=== PATIENT | male | born 1975 | race Caucasian/White ===

== ENCOUNTER 2019-11-26 11:47 | Emergency (ER) | payer SELFPAY ==
[~2019-11-26 11:47] MED LIST: Iopamidol-370 76% 500 ML 1 ML ONE
[2019-11-26 12:20] LABS: #Eosinphils 0.1 thou/uL (0.0-0.7); #Lymphocytes 1.4 thou/uL (1.20-3.40); #Monocytes 0.5 thou/uL (0.11-0.59); #Neutrophils 5.2 thou/uL (1.40-6.50); %Basophils 0.6 % (0.0-1.0); %Eosinophils 0.8 % (0.0-10.0); %Lymphocytes 19.1 % (21.0-51.0); %Monocytes 7.3 % (0.0-10.0); %Neutrophils 72.2 % (42.0-75.0); Hemoglobin 15.9 g/dL (14.0-18.0); Mean Corpuscular HGB CONC 34.6 g/dL (32.0-36.0); Mean Corpuscular Hemoglobin 36.2 pg (27.0-31.0); Mean Platelet Volume 8.2 fL (7.4-10.4); Platelet Count 135 thou/uL (130-400); RBC Distribution Width 15.7 % (11.5-14.5); Red Blood Cell (RBC) Count 4.39 mill/uL (4.70-6.10); White Blood Cell (WBC) Count 7.3 thou/uL (4.8-10.8)
--- NOTE | 2019-11-26 12:21 | RAD ---
RADIOGRAPH CHEST 1 VIEW: DATE: 11/26/2019 HISTORY: 44-year-old male with chest pain, cough, and dyspnea FINDINGS: There are no airspace densities, pulmonary edema, pneumothorax, or cardiomegaly. The lateral costophr enic angles are sharp. IMPRESSION: No acute cardiopulmonary findings.
[2019-11-26] MEDS ORDERED: chlordiazePOXIDE HCl 25 MG CAP ONE ×2 (12:49→14:21)
[2019-11-26 13:31] LABS: ALT (SGPT) 32 U/L (8-55); AST (SGOT) 98 U/L (5-34); Albumin 4.1 g/dL (3.5-5.0); Alkaline Phosphatase 98 U/L (40-110); Anion Gap 19 mmol/L (10-20); BUN (Urea Nitrogen) 6 mg/dL (8.9-20.6); Bilirubin, Total 1.4 mg/dL (0.2-1.2); Calc. Creatinine Clearance 0 mL/min (70-130); Calcium 8.5 mg/dL (7.8-10.44); Carbon Dioxide 22 mmol/L (22-29); Chloride 101 mmol/L (98-107); Estimated GFR-MDRD 87; Globulin 3.1 g/dL (2.4-3.5); Glucose 208 mg/dL (70-105); Protein, Total 7.2 g/dL (6.0-8.3); Sodium 139 mmol/L (136-145)
[2019-11-26] MEDS ORDERED: predniSONE 20 MG TAB ONE (13:40)
[2019-11-26] MEDS ORDERED: Potassium Chloride 20 MEQ TAB ONE (14:07)
--- NOTE | 2019-11-26 15:38 | CT ---
CT PULMONARY ANGIOGRAM WITH IV CONTRAST AND 3D POSTPROCESSIN11/26/19 HISTORY: Chest pain, shortness of breath. FINDINGS: No filling defects are seen in the pulmonary arterial vasculature to suggest pulmonary embolism. The thoracic aorta is well opacified without aneurysm or dissection. No pleural or pericardial effusion identified. No pneumothoraces, focal areas of consolidation, lung nodules or masses are seen. There a re mild degenerative changes in the spine. Upper abdominal tomograms demonstrate fatty infiltration o f the liver. IMPRESSION: No CT evidence of pulmonary embolism or thoracic aortic aneurysm/dissection. POS: [facility]
--- NOTE | 2019-11-30 14:09 | EKG ---
Test Reason : Blood Pressure : / mmHG Vent. Rate : 109 BPM Atrial Rate : 109 BPM P-R Int : 150 ms QRS Dur : 090 ms QT Int : 336 ms P-R-T Axes : 058 051 044 degrees QTc Int : 452 ms Sinus tachycardia Otherwise normal ECG Confirmed by MIGUEL PLASCENCIA DO ([id number]), film or videotape editor SUNITA DOVER ([id number]) on 11/30/2019 2:09:36 PM Referred By: Confirmed By:MIGUEL PLASCENCIA DO
== END 2019-11-26 16:56 | disposition home or self-care (01) ==
LOC: ERS 11:47
DX: J20.9 Acute bronchitis, unspecified (principal); F10.239 Alcohol dependence with withdrawal, unspecified; F20.9 Schizophrenia, unspecified; F31.9 Bipolar disorder, unspecified; F41.9 Anxiety disorder, unspecified; F43.10 Post-traumatic stress disorder, unspecified; F17.220 Nicotine dependence, chewing tobacco, uncomplicated
CPT/HCPCS: 36415; 71045; 71275; 80053; 84484; 85025; 85379; 93005; J7512; Q9967

== ENCOUNTER 2020-04-09 09:34 | Outpatient (CLI) | payer OTHER ==
--- NOTE | 2020-04-09 12:02 | RAD ---
LEFT KNEE 2 VIEWS: DATE: 04/09/2020 HISTORY: Disability exam. Knee pain. FINDINGS/IMPRESSION: No acute fracture or dislocation is seen. No joint effusion is identified. No significant osteophytos is is noted. There is flocculent calcification in the distal shaft of the femur which may be due to a n enchondroma or bone infarction. POS: [facility]
--- NOTE | 2020-04-09 12:05 | RAD ---
LUMBAR SPINE 3 VIEWS: Date: 04/09/2020 HISTORY: Disability exam. Low back pain. FINDINGS: Multilevel degenerative changes are present. No acute fracture, subluxation, or bony destruction is s een. IMPRESSION: Lumbar spondylosis. POS: [facility]
--- NOTE | 2020-04-09 12:08 | RAD ---
LEFT WRIST 3 VIEWS: HISTORY: Disability exam, left wrist pain. FINDINGS/IMPRESSION: No acute fracture or dislocation is seen. There are postop changes with screws on either side of the 1st carpometacarpal joint. There are also degenerative changes in the 1st carpometacarpal joint. POS: [facility]
== END 2020-04-09 09:35 | disposition home or self-care (01) ==
LOC: BICRAD 09:34
PROVIDERS: ATTEND Internal Medicine
DX: Z02.71 Encounter for disability determination (principal); M18.12 Unilateral primary osteoarthritis of first carpometacarpal joint, left hand; M47.816 Spondylosis without myelopathy or radiculopathy, lumbar region; Z98.890 Other specified postprocedural states
CPT/HCPCS: 72100

== ENCOUNTER 2020-08-12 02:15 | Inpatient (IN) | payer SELFPAY ==
[2020-08-12 03:16] LABS: Hemoglobin 10.9 g/dL (14.0-18.0); Mean Corpuscular HGB CONC 35.1 g/dL (32.0-36.0); Mean Corpuscular Hemoglobin 37.1 pg (27.0-31.0); Red Blood Cell (RBC) Count 2.94 mill/uL (4.70-6.10); White Blood Cell (WBC) Count 7.7 thou/uL (4.8-10.8)
[2020-08-12 03:17] LABS: INR-International Normal Ratio 1.4; PTT 29.2 sec (22.9-36.1); Prothrombin Time 17.9 sec (12.0-14.7)
[2020-08-12 03:39] LABS: #Lymphocytes 0.8 thou/uL (1.20-3.40); #Monocytes 0.4 thou/uL (0.11-0.59); #Neutrophils 6.4 thou/uL (1.40-6.50); %Basophils 0.3 % (0.0-1.0); %Eosinophils 0.3 % (0.0-10.0); %Lymphocytes 10.1 % (21.0-51.0); %Monocytes 5.3 % (0.0-10.0); %Neutrophils 84.1 % (42.0-75.0); Mean Platelet Volume 8.7 fL (7.4-10.4); Platelet Count 61 thou/uL (130-400); Platelet Morphology Comment Appears Decreased
[2020-08-12 03:54] LABS: CKMB 1.2 ng/mL (0-6.6)
[2020-08-12 03:57] LABS: ALT (SGPT) 20 U/L (8-55); AST (SGOT) 84 U/L (5-34); Albumin 3.3 g/dL (3.5-5.0); Alkaline Phosphatase 82 U/L (40-110); Anion Gap 20 mmol/L (10-20); BUN (Urea Nitrogen) 18 mg/dL (8.9-20.6); Bilirubin, Total 2.8 mg/dL (0.2-1.2); Calc. Creatinine Clearance 0 mL/min (70-130); Carbon Dioxide 26 mmol/L (22-29); Chloride 100 mmol/L (98-107); Globulin 2.7 g/dL (2.4-3.5); Glucose 264 mg/dL (70-105); Potassium 3.3 mmol/L (3.5-5.1); Sodium 143 mmol/L (136-145)
--- NOTE | 2020-08-12 08:19 | CT ---
PRELIMINARY REPORT/[facility]/EMERGENCY AFTER HOURS PROCEDURE EXAM: CT Abdomen and Pelvis with Intravenous Contrast CLINICAL HISTORY: VOMITTING AND RECTAL BLEEDING. TECHNIQUE: Axial computed tomography images of the abdomen and pelvis with intravenous contrast. CONTRAST: With; ISOVUE 370,80mL COMPARISON: None provided. FINDINGS: LUNG BASES: No basilar airspace consolidation or pleural effusion. LIVER: Diffuse low-attenuation of the liver. There are multiple low-attenuation rounded lesions of the gallb ladder fossa. GALLBLADDER AND BILE DUCTS: Unremarkable. No calcified stone. No ductal dilation. PANCREAS: Unremarkable. SPLEEN: Unremarkable. ADRENAL GLANDS: Unremarkable. KIDNEYS, URETERS, AND BLADDER: Unremarkable. No hydronephrosis or nephrolithiasis. No ureteral or bladder calculi. STOMACH AND BOWEL: No obstruction. Wall thickening in the cecum and ascending colon with mild adjacent stranding. No e vidence of bowel obstruction. APPENDIX: No CT evidence for appendicitis. PERITONEUM: No free fluid. No free air. LYMPH NODES: No lymphadenopathy. REPRODUCTIVE: Unremarkable as visualized. VASCULATURE: Gastrorenal varices are present. No aortic aneurysm. BONES: No fracture or suspicious osseous abnormality. ABDOMINAL WALL AND SOFT TISSUES: Unremarkable. IMPRESSION: 1. Bowel wall thickening in the cecum and ascending colon with mild adjacent stranding. This could represent acute colitis. Portal colopathy is also a consideration. 2. Stigmata of portal hypertension to include gastrorenal varices. 3. Diffuse low-attenuation of the liver. This could represent hepatic steatosis or hepatitis. Darrel elate for LFT abnormalities. 4. Multiple low-density lesions in the liver at the gallbladder fossa. Cannot exclude small hepatic abscesses, cysts or less likely masses. This could be evaluated further with dedicated liver MRI or CT. ELECTRONICALLY SIGNED BY: Art Pedro M.D. Aug 12, 2020 4:00:52 AM POWDER CUTTING OPERATOR This report is intended for review by the ordering physician only, in accordance of law. If you recei ve this report in error, please call [facility] at [phone]. FINAL REPORT Final interpretation CT abdomen and pelvis: 08/12/2020 COMPARISON: None. HISTORY: Vomiting, rectal bleeding. FINDINGS: The visualized lung bases appear grossly unremarkable. The hepatic parenchyma is diffusely hypodense, suggesting steatosis. The peripheral contour of the li celeste is slightly irregular, which may signify cirrhotic change. The spleen is enlarged measuring approximately 15.2 cm in craniocaudal dimension. There are varices in the gastrohepatic ligament and splenic hilum with prominent lobulated varices medial to the gastric fundus. A left-sided splenorenal shunt is suspected. No free intraperitoneal air. The gallbladder is partially contracted and poorly evaluated via CT. The adrenal glands and kidneys a ppear grossly unremarkable as does the pancreas. There are multiple low density lesions within the hepatic parenchyma adjacent to the gallbladder, non specific. The location of these findings may signify focal areas of fatty infiltration. Hepatic abscess, cyst disease, or mass lesions cannot be excluded on the basis of this examination. Evaluation of the bowel is limited without oral contrast media. There is mild thickening of the paracolic gutters posteriorly. The appendix is unremarkable. There is wall prominence of the cecum and ascending colon with minimal adjacent pericolonic fat stranding. The vascular structures of the abdomen/pelvis appear patent. There are scattered areas of atheroscler otic calcification involving the infrarenal abdominal aorta and the pelvic arterial structures. No abdominal or pelvic lymphadenopathy. Review of the osseous structures demonstrates no worrisome lytic or blastic bone lesions. There is li near sclerosis associated with bilateral femoral head suggesting bilateral avascular necrosis. IMPRESSION: Findings suggesting early cirrhotic change with evidence of portal hypertension. Multiple areas of lo w density are seen within the hepatic parenchyma adjacent to the gallbladder measuring up to 1 cm, which may represent focal areas of fatty infiltration, hepatic infectious process, cyst disease, or h epatic masses. Follow-up MRI with and without contrast may be beneficial. There is wall prominence of the cecum and ascending colon which could signify hepatic/portal colonopathy or acute colitis. Code QA. Transcribed Date/Time: 08/12/2020 9:13 AM
--- NOTE | 2020-08-12 08:23 | ULT ---
EXAM: US Gallbladder RUQ CLINICAL HISTORY: Hematemesis. Right upper quadrant pain.. COMPARISON: None. CORRELATION: Abdomen/pelvis CT 08/12/2010. FINDINGS: Pancreas: The head of the pancreas has a normal echotexture. The remainder the pancreas is obscured by bowel gas. Liver:Heterogeneous echotexture may be due to hepatocellular disease along with areas of fatty infilt ration. Limited evaluation for hepatic masses and intrahepatic biliary dilatation. Right hepatic lobe: 16.8 cm Gallbladder: Contracted. There is evidence of cholelithiasis. Gallbladder wall is not thickened. No p ericholecystic fluid. Bone's sign:Negative Portal Vein: Patent. Appropriate directional flow Bile ducts: Suboptimal evaluation of the common bile duct. Right kidney: No hydronephrosis. Right kidney measures 13.1 cm in length. IMPRESSION: 1. Sonographic evidence of cholelithiasis without definite sonographic evidence of cholecystitis. 2. Heterogeneous echotexture of the liver likely due to hepatic steatosis and hepatocellular disease. Transcribed Date/Time: 08/12/2020 9:03 AM
[2020-08-12] MEDS ORDERED: Thiamine HCl 200 MG/2 ML VIAL IM SCH (08:30)
[2020-08-12] MEDS ORDERED: HumaLOG 300 UNITS/3 ML VIAL SC PRN ×2 (08:39)
[2020-08-12] MEDS ORDERED: Dextrose 5% in Water 1,000 ML IV PRN (08:39)
[2020-08-12] MEDS ORDERED: Dextrose 50% Abboject 50 ML SYRINGE SLOW IVP PRN (08:39)
--- NOTE | 2020-08-12 08:46 | RAD ---
EXAM: CHEST ONE VIEW HISTORY: Vomiting and rectal bleeding COMPARISON: 11/26/2019 FINDINGS: The cardiac silhouette and pulmonary vasculature are within normal limits. The lungs are clear. No ot her interval change. IMPRESSION: No acute cardiopulmonary process.
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
[2020-08-12] MEDS ORDERED: Octreotide Acetate 50 MCG/ML AMP SLOW IVP SCH ×3 (09:15→16:25)
[2020-08-12 10:19] LABS: Magnesium 1.4 mg/dL (1.6-2.6)
[2020-08-12] MEDS ORDERED: Pantoprazole 40 MG VIAL ONE (11:22)
[2020-08-12] MEDS ORDERED: niCARdipine 20MG In NaCl 0 MG/0 ML BAG ONE (11:22)
[2020-08-12] MEDS ORDERED: Labetalol HCl 100 MG/20 ML VIAL ONE (11:23)
[2020-08-12] MEDS: NS 0.9% w/ 40 MEQ KCL 1,000 ML IV SCH ×2 (11:30→19:16)
[2020-08-12] MEDS: Folic Acid 1 MG TAB PO SCH (11:30)
[2020-08-12] MEDS: Pantoprazole 40 MG VIAL IVP SCH ×2 (11:31→22:25)
[2020-08-12] MEDS ORDERED: Folic Acid 1 MG TAB ONE (12:20)
[2020-08-12] MEDS ORDERED: Iopamidol-370 76% 500 ML 1 ML ONE (12:27)
[2020-08-12] MEDS ORDERED: Octreotide Acetate 50 MCG/ML AMP ONE (13:46)
[2020-08-12] MEDS ORDERED: Midazolam HCl 2 mg/2 ml Vial ONE (14:31)
[2020-08-12] MEDS ORDERED: Lorazepam 2 MG/ML VIAL ONE (14:35)
[2020-08-12 14:57] LABS: SARS-CoV-2 NAA Rapid Test Not Detected (NotDetected)
[2020-08-12] MEDS ORDERED: Glycopyrrolate 0.2 MG/ML 5 ML SYRINGE ONE (15:17)
[2020-08-12] MEDS ORDERED: Rocuronium Bromide 10 MG/ML (10ML VIAL) ONE (15:17)
[2020-08-12] MEDS ORDERED: PROPOFOL 200 MG/20 ML VIAL ONE (15:17)
[2020-08-12] MEDS ORDERED: Ondansetron PF 4 MG/2 ML Vial ONE ×2 (15:17→22:19)
[2020-08-12] MEDS ORDERED: PHENYLEPHRINE-NS 100 MCG/ML 10 ML SYRINGE ONE (15:17)
[2020-08-12] MEDS ORDERED: Lidocaine 1% PF 5 ML VIAL ONE (15:17)
[2020-08-12] MEDS ORDERED: Succinylcholine 200 MG/10 ml SYRINGE FS ONE (15:17)
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
[2020-08-12 15:36] LABS: Hemoglobin 9.4 g/dL (14.0-18.0)
[2020-08-12] MEDS ORDERED: SUGAMMADEX SODIUM 200 MG/2 ML VIAL ONE (16:13)
[2020-08-12] MEDS ORDERED: Promethazine HCl 25 MG/ML VIAL SLOW IVP PRN (16:35)
[2020-08-12] MEDS ORDERED: Ondansetron HCl/PF 4 MG/2 ML Vial IVP PRN (16:35)
[2020-08-12] MEDS ORDERED: Promethazine HCl 25 MG/ML VIAL IM PRN (16:35)
--- NOTE | 2020-08-12 16:48 | OP ---
DATE OF PROCEDURE: 08/12/2020 PROCEDURE PERFORMED: Esophagogastroduodenoscopy. PREMEDICATION: Given by Anesthesiology Department. PREPROCEDURE DIAGNOSIS: 1. Upper gastrointestinal bleed characterized as hematemesis. 2. Evidence of cirrhosis and portal hypertension by imaging study, CT and ultrasound. POSTPROCEDURE DIAGNOSES: 1. Large 3 cm gastric varix with a fibrin clot, but no active bleeding. 2. Moderate hypertensive portal gastropathy. 3. Small grade 1 distal esophageal varix, flatten with insufflation. DESCRIPTION OF PROCEDURE: Written consents were obtained prior to procedure. After adequate sedation, the forward-viewing endoscope was advanced down the hypopharynx under direct vision to the stomach. A residual clot and blood was noted in the stomach. The stomach was vigorously irrigated and suctioned and cleaned. There was no active bleeding seen. The endoscope was advanced through the duodenum. Both the 2nd portion and the 3rd portion appears normal. The bulb appeared normal. The pylorus was patent. The stomach was then re-examined. The gastric antrum, body, and fundus appeared normal. Retroflexion showed a single large gastric varix with a fibrin clot at the tip, but no bleeding was seen. The GE junction was located at 45 cm. There was grade 1 small distal esophageal varices, that flattened with insufflation. The stomach was then decompressed. The instrument was then slowly removed. ASSESSMENT: 1. Large gastric varix with fibrin clot, source of bleeding, but no active bleeding at the present time. 2. Portal gastropathy. 3. Small grade 1 esophageal varix, that flattens with insufflation, no bleeding. RECOMMENDATION: 1. High-dose octreotide 100 mcg IV an hour. 2. Do not transfuse unless hemoglobin is less than 7 to maintain low portal pressure. 3. He will need to be transferred for TIPS procedure. Job ID: [id number]
[2020-08-12] MEDS: Multivitamin W/ Minerals 1 TAB PO SCH (17:25)
[2020-08-12] MEDS ORDERED: Octreotide Acetate 1,250 MCG in Sodium Chloride 0.9% 250 ML 250 ML IVPB SCH (18:15)
--- NOTE | 2020-08-12 19:43 | PDOC.EVN ---
Event Note - Event Note Event Note: Discussed case with Dr. Carreon. Patient has large gastric varix and will need transfer to larger center with capability to do TIPS procedure. Initiated transfer with transfer center to [facility]. Will continue patient on high dose octreotide at 100 mcg IV/hr. Will avoid excessive transfusion to maintain low portal pressure. Will also start vitamin K to hep reverse coagulopathies. I have spoke with the [facility] at [facility] who has accepted the patient for transfer. The patient will be accepted to the ICU. Awaiting bed placement and to give report to the ICU physician at [facility].
[2020-08-12] MEDS ORDERED: Lorazepam 2 MG/ML VIAL SLOW IVP PRN (19:54)
[2020-08-12 20:02] LABS: Hemoglobin 8.9 g/dL (14.0-18.0)
[2020-08-12] MEDS ORDERED: Sodium Chloride 0.9% 20 ML ONE (21:35)
[2020-08-13 02:09] LABS: Hemoglobin 8.4 g/dL (14.0-18.0)
[2020-08-13] MEDS: NS 0.9% w/ 40 MEQ KCL 1,000 ML IV SCH ×2 (05:59→06:01)
[2020-08-13 08:18] LABS: Hemoglobin 8.1 g/dL (14.0-18.0)
[2020-08-13] MEDS ORDERED: Phytonadione 10 MG/ML AMP ONE (08:47)
[2020-08-13] MEDS ORDERED: Magnesium Oxide 400 MG TAB PO SCH (09:00)
[2020-08-13] MEDS ORDERED: Thiamine 100 MG TAB PO SCH (09:00)
[2020-08-13] MEDS: Folic Acid 1 MG TAB PO SCH (09:06)
[2020-08-13] MEDS: Multivitamin W/ Minerals 1 TAB PO SCH (09:06)
[2020-08-13] MEDS: Phytonadione 10 MG/ML AMP SLOW IVP SCH (09:07)
[2020-08-13] MEDS: Pantoprazole 40 MG VIAL IVP SCH (09:07)
[2020-08-13] MEDS ORDERED: cefTRIAXone\\ROCEPHIN 1 GM in Sodium Chloride 0.9% 100 ML IVPB SCH (10:00)
--- NOTE | 2020-08-13 15:16 | PDOC.HOSPP ---
- Subjective Encounter Date: 08/13/20 Subjective: Patient got his on FaceTime phone call as I came to evaluate him. Patient is frustrated that he is not able to eat or drink anything other than ice chips. He is frustrated that he does not have a room other than the PACU overflow (as the hospital is otherwise full). He has been reading about a TIPS procedure on the Internet and is now concerned because he believes that would give him a life expectancy of 6 to 24 months. He is not sure at this time and he wants to go to [place] for this procedure because he does not like the idea of surgery in general. His would have a difficult time getting to [place]. He says his car at home now has a flat tire so no one would be able to get him to bring him back after his visit to [place]. Otherwise, the patient denies any abdominal pain, nausea, vomiting, melena or hematochezia. - Objective Vital Signs & Weight: Most Recent Monitor Data Heart Rate from ECG 125 NIBP 112/75 NIBP BP-Mean 87 Respiration from ECG 24 SpO2 96 I&O: 08/12/20 08/13/20 08/14/20 06:59 06:59 06:59 Intake Total 100 Balance 100 Result Diagrams: 08/13/20 12:50 08/12/20 03:03 Additional Labs: Accuchecks 08/13/20 08/13/20 08/12/20 11:42 05:10 19:54 POC Glucose 189 H 207 H 215 H Hospitalist ROS - Medication Medications: Active Medications Generic Name Dose Route Start Last Admin Trade Name Ajith PRN Reason Stop Dose Admin Folic Acid 1 mg 08/12/20 09:00 08/13/20 09:06 Folic Acid 1 Mg Tab PO 1 mg DAILY ASHLEY Administration Iron/Minerals/Multivitamins 1 tab 08/12/20 09:00 08/13/20 09:06 Multivitamin W/ Minerals 1 Tab PO 1 tab DAILY ASHLEY Administration Magnesium Oxide 400 mg 08/13/20 09:00 08/13/20 09:06 Magnesium Oxide 400 Mg Tab PO 400 mg DAILY ASHLEY Administration Pantoprazole Sodium 40 mg 08/12/20 09:00 08/13/20 09:07 Pantoprazole 40 Mg Vial IVP 40 mg Q12HR ASHLEY Administration Phytonadione 10 mg 08/13/20 09:00 08/13/20 09:07 Phytonadione 10 Mg/Ml Amp SLOW IVP 10 mg DAILY ASHLEY Administration Thiamine HCl 100 mg 08/13/20 09:00 08/13/20 09:07 Thiamine 100 Mg Tab PO 100 mg DAILY ASHLEY Administration Hospitalist Exam Vitals: Most Recent Monitor Data Heart Rate from ECG 125 NIBP 112/75 NIBP BP-Mean 87 Respiration from ECG 24 SpO2 96 General Appearance: NAD, awake alert General - other findings: Obese Heart: RRR, no murmur, no gallops, no rubs, normal peripheral pulses Respiratory: CTAB, no wheezes, no rales, no ronchi, normal chest expansion, no tachypnea, normal percussion Gastrointestinal: soft, non-tender, non-distended, normal bowel sounds, no palpable masses, no hepatomegaly, no splenomegaly, no bruit Extremities: no cyanosis, no clubbing, no edema Skin: normal turgor Neurological: no focal deficits Musculoskeletal: normal tone, normal strength, no muscle wasting Psychiatric: normal affect, normal behavior, A&O x 3 Hosp A/P (1) GI bleed Code(s): K92.2 - GASTROINTESTINAL HEMORRHAGE, UNSPECIFIED Status: Acute (2) Bleeding gastric varices Code(s): I86.4 - GASTRIC VARICES Status: Acute (3) Alcoholism Code(s): F10.20 - ALCOHOL DEPENDENCE, UNCOMPLICATED Status: Acute (4) Cirrhosis, alcoholic Code(s): K70.30 - ALCOHOLIC CIRRHOSIS OF LIVER WITHOUT ASCITES Status: Acute (5) Coagulopathy Status: Acute (6) Acute blood loss anemia Code(s): D62 - ACUTE POSTHEMORRHAGIC ANEMIA Status: Acute - Plan GI bleed secondary to gastric varix: Status post endoscopy. Appeared that the bleeding had stopped and there was a fibrin clot present. Continue octreotide drip. Patient has been accepted in transfer to [facility] Awaiting bed availability. In the meantime the patient has been allowed some clear liquids. Acute blood loss anemia: Holding off on transfusing unless his hemoglobin drops below 7 in order to keep portal pressure low. Continue every 6 hour hemoglobin checks. Coagulopathy: Secondary to liver disease. Moderate. Alcoholic cirrhosis: Patient has evidence of cirrhosis and portal hypertension on his imaging. Responsible for the gastric varix, and the coagulopathy. Alcoholism: So far no significant evidence of serious withdrawal. ASE protocol has been initiated. He is receiving thiamine, folic acid, multivitamin. Disposition: As above the [facility] [place] [facility]IPS procedure pending bed availability. He has been accepted.
--- NOTE | 2020-08-13 16:11 | PRG ---
DATE OF SERVICE: 08/13/2020 SUBJECTIVE: Mr. Smith is resting comfortably in bed. He has had no bleeding. He is in ICU status in PACU. MEDICATIONS: 1. Rocephin. 2. Protonix 40 IV q.12. 3. Octreotide drip 100 mcg/h. 4. Multivitamin. 5. Thiamine. 6. Folate. OBJECTIVE: VITAL SIGNS: Temperature 98, pulse 98, blood pressure 110/73. GENERAL: He is resting comfortably in bed. He is in no distress. HEENT: Oropharynx without lesions. NECK: Supple. ABDOMEN: Slightly protuberant with fluid wave, but no overt shifting dullness. LABORATORY DATA: Hemoglobin is 8, it was 8.4 yesterday, it was 10 on admission. He has received no transfusion today. White count 7.7 yesterday, MCV 106, platelet count 61. INR 1.4. lipase 22. Bilirubin 2.8, AST 84, ALT 20, protein 6, albumin 3.3. ASSESSMENT: 1. Gastrointestinal hemorrhage from a large gastric varices with a fibrin clot. He is at high risk for hemorrhage. He needs to be transferred to a facility with capability to perform a TIPS procedure. He has no encephalopathy and relatively stable liver function would be a great candidate. If he does not have a TIPS, he would likely represent with hemorrhage and this will not be controllable endoscopically, he would . We do not have the capabilities for endoscopic management of the large gastric varices nor is TIPS available at this facility. I have discussed this with the patient. He understands and accepted transfer to [place]. I have discussed the procedure with him. 2. Alcoholic hepatitis. Discussed need for continued abstinence of alcohol for the rest of his life or he will suffer ramifications of liver failure. 3. We would continue IV PPI q.12. 4. The patient needs to be on octreotide drip at all times when he gets transferred. He needs to be on octreotide drip and have a good supply transfer. 5. Imaging of liver on 08/12 showed steatosis and irregular liver margin, also signs of edema of the abdominal bowel. An ultrasound showed cholelithiasis. No overt ascites. Plasma alcohol was 282 on admission. RECOMMENDATIONS: We will continue aggressive care. We will watch out for DT and place on MELL protocol. Job ID: [id number]
[2020-08-14] MEDS ORDERED: Diazepam 2 MG TAB PO SCH (05:15)
[2020-08-14 08:24] VITALS: BP 106/62; TEMP 97.9
[2020-08-14] MEDS ORDERED: Lorazepam 2 MG/ML VIAL ONE ×2 (08:36→08:44)
[2020-08-14] MEDS: Phytonadione 10 MG/ML AMP SLOW IVP SCH (08:43)
[2020-08-14] MEDS: Pantoprazole 40 MG VIAL IVP SCH (08:44)
--- NOTE | 2020-08-14 18:03 | PDOC.DS.DS ---
Provider Date of Admission: 08/12/20 05:09 Date of Discharge: 08/14/20 Admitting Provider: Johnathan Marin MD Consultations: Gastroentrology Primary Care Physician: MATTHEW MONET MD Course Hospital Course: Patient is a 45-year-old male with a history of significant alcohol abuse who presented with hematochezia and melena. GI bleed secondary to gastric varix: Patient underwent urgent endoscopy revealing a very large gastric varix with fibrin clot. Appeared that the bleeding had stopped and there was a fibrin clot present. He was subsequently maintained on high-dose octreotide drip. Giving the likelihood of rebleed it was felt the patient needed a TIPS procedure promptly. He was subsequently accepted in transfer to [facility]. Acute blood loss anemia: Patient's hemoglobin did drop a couple of grams. He did not receive a transfusion as the plan was to only transfuse below 7. Idea was to keep the portal pressure lower. Coagulopathy: Secondary to liver disease. Moderate. Alcoholic cirrhosis: Patient has evidence of cirrhosis and portal hypertension on his imaging. Responsible for the gastric varix, and the coagulopathy. Alcoholism: no significant evidence of serious withdrawal. ASE protocol was initiated. He received thiamine, folic acid, multivitamin. Lab Results: 08/13/20 12:50 08/12/20 03:03 Abnormal Lab Results - Last 48 hrs 08/12/20 19:54: Hgb 8.9 L, Hct 26.1 L 08/13/20 01:54: Hgb 8.4 L, Hct 24.5 L 08/13/20 07:56: Hgb 8.1 L, Hct 25.3 L 08/13/20 12:50: Hgb 8.0 L, Hct 23.4 L Vitals: Vital Signs (12 hours) Temp Pulse Resp BP Pulse Ox 08/14/20 08:00 97.9 F 78 16 106/62 100 08/14/20 07:47 100 Most Recent Monitor Data Heart Rate from ECG 125 NIBP 112/75 NIBP BP-Mean 87 Respiration from ECG 24 SpO2 96 Physical Exam: The patient was seen and examined on the day of discharge. Problem (1) GI bleed Code(s): K92.2 - GASTROINTESTINAL HEMORRHAGE, UNSPECIFIED Status: Acute (2) Bleeding gastric varices Code(s): I86.4 - GASTRIC VARICES Status: Acute (3) Alcoholism Code(s): F10.20 - ALCOHOL DEPENDENCE, UNCOMPLICATED Status: Acute (4) Cirrhosis, alcoholic Code(s): K70.30 - ALCOHOLIC CIRRHOSIS OF LIVER WITHOUT ASCITES Status: Acute (5) Coagulopathy Status: Acute (6) Acute blood loss anemia Code(s): D62 - ACUTE POSTHEMORRHAGIC ANEMIA Status: Acute Plan Allergies: No Known Allergies Allergy (Unverified 08/12/20 08:17) Referrals: MATTHEW MONET MD [Primary Care Provider] - Disposition: OTHER HOSPITAL ER Quality CORE MEASURES:: N/A
== END 2020-08-14 09:25 | disposition short-term general hospital (02) | DRG 300 ==
LOC: ERS 02:15 → ERHOLD 05:09 → PACU-TCU 17:59
PROVIDERS: ADMIT Student in an Organized Health Care Education/Training Program; ATTEND Internal Medicine
PROC: 0DJ08ZZ Inspection of Upper Intestinal Tract, Via Natural or Artificial Opening Endoscopic (ICD-10-PCS; principal; 2020-08-12)
DX: I86.4 Gastric varices (principal); K76.6 Portal hypertension; I24.8 Other forms of acute ischemic heart disease; D62 Acute posthemorrhagic anemia; K92.2 Gastrointestinal hemorrhage, unspecified; D68.4 Acquired coagulation factor deficiency; K70.30 Alcoholic cirrhosis of liver without ascites; E11.9 Type 2 diabetes mellitus without complications; F31.9 Bipolar disorder, unspecified; F43.10 Post-traumatic stress disorder, unspecified; E87.6 Hypokalemia; D69.59 Other secondary thrombocytopenia; G40.909 Epilepsy, unspecified, not intractable, without status epilepticus; F10.20 Alcohol dependence, uncomplicated; Z20.822 Contact with and (suspected) exposure to COVID-19
CPT/HCPCS: 36415; 36416; 71045; 74177; 76705; 80053; 82553; 83605; 83690; 83735; 84484; 85014; 85018; 85025; 85610; 85730; 86850; 86900; 86901; 93005; 96374; C9113; J2060; J2250; J2354; J2405; J2704; J3411; J3430; J3475; J3480; J3490; Q9967; U0002

== ENCOUNTER 2020-12-22 23:19 | Emergency (ER) | payer MEDICAID, SELFPAY ==
[2020-12-22 23:42] LABS: Bilirubin Negative (Negative); Blood, Urine Negative (Negative); Clarity Clear (Clear); Glucose, Urine (Dipstick) Greater than 1000 mg/dL (Negative); Ketone, Urine Negative (Negative); Leukocyte Negative Leu/uL (Negative); Nitrite Negative (Negative); Protein, Urine (Dipstick) Negative (Neg-Trace); Urobilinogen Normal mg/dL (Less than 2); pH, Urine 6.5 (5.0-9.0)
[2020-12-23 00:16] LABS: #Basophils 0.1 thou/uL (0.0-0.2); #Eosinphils 0.1 thou/uL (0.0-0.7); #Lymphocytes 2.2 thou/uL (1.20-3.40); #Monocytes 0.4 thou/uL (0.11-0.59); #Neutrophils 4.2 thou/uL (1.40-6.50); %Basophils 1.5 % (0.0-1.0); %Eosinophils 2.1 % (0.0-10.0); %Lymphocytes 31.6 % (21.0-51.0); %Monocytes 5.2 % (0.0-10.0); %Neutrophils 59.6 % (42.0-75.0); Hemoglobin 13.2 g/dL (14.0-18.0); Mean Corpuscular HGB CONC 34.9 g/dL (32.0-36.0); Mean Corpuscular Hemoglobin 28.3 pg (27.0-31.0); Mean Corpuscular Volume 81.1 fL (78.0-98.0); Mean Platelet Volume 9.2 fL (7.4-10.4); Platelet Count 114 thou/uL (130-400); RBC Distribution Width 14.2 % (11.5-14.5); Red Blood Cell (RBC) Count 4.65 mill/uL (4.70-6.10)
[2020-12-23 00:36] LABS: ALT (SGPT) 15 U/L (8-55); AST (SGOT) 21 U/L (5-34); Alkaline Phosphatase 114 U/L (40-110); Anion Gap 16 mmol/L (10-20); BUN (Urea Nitrogen) 14 mg/dL (8.9-20.6); Bilirubin, Total 0.5 mg/dL (0.2-1.2); Calc. Creatinine Clearance 0 mL/min (70-130); Calcium 9.4 mg/dL (7.8-10.44); Carbon Dioxide 21 mmol/L (22-29); Chloride 99 mmol/L (98-107); Globulin 3.8 g/dL (2.4-3.5); Glucose 397 mg/dL (70-105); Protein, Total 7.8 g/dL (6.0-8.3); Sodium 132 mmol/L (136-145)
[2020-12-23 02:40] LABS: Actual Bicarbonate (HCO3v) 25 mEq/L (22-28); Analyzer IN Cardio ER; Base Excess 0.1 mEq/L (-2.0 to +3.0); Calcium, Ionized (venous) 1.12 mmol/L (1.16-1.32); Chloride (VBG) 101 mmol/L (98-106); Hemoglobin (Hb) 14.4 g/dL (13.1-17.2); Sodium 135.6 mmol/L (133-146); pH (venous) 7.41 (7.32-7.43)
== END 2020-12-23 03:21 | disposition home or self-care (01) ==
LOC: ERS 23:19
DX: E11.65 Type 2 diabetes mellitus with hyperglycemia (principal); F17.220 Nicotine dependence, chewing tobacco, uncomplicated; Z79.899 Other long term (current) drug therapy
CPT/HCPCS: 36415; 36416; 80053; 81003; 82010; 82805; 85025; 93005

== ENCOUNTER 2021-01-31 19:00 | Outpatient (CLI) | payer MEDICAID, OTHER | END 2021-01-31 19:01 | disposition home or self-care (01) | LOC: SLEEPLAB 19:00 | PROVIDERS: ATTEND Nurse Practitioner Family | DX: G47.33 Obstructive sleep apnea (adult) (pediatric) (principal); G47.00 Insomnia, unspecified; E11.9 Type 2 diabetes mellitus without complications; R06.83 Snoring; G47.10 Hypersomnia, unspecified; E66.9 Obesity, unspecified; Z68.33 Body mass index [BMI] 33.0-33.9, adult | CPT/HCPCS: 95811 ==

== ENCOUNTER 2021-05-11 03:27 | Inpatient (IN) | payer MEDICAID, OTHER ==
[2021-05-11] MEDS ORDERED: Midazolam HCl 5 mg/ml Vial ONE (03:41)
[2021-05-11] MEDS ORDERED: Heparin 10,000 UNITS/ 10 ML VIAL ONE (03:49)
[2021-05-11] MEDS ORDERED: Verapamil 5 MG/2 ML VIAL ONE (03:49)
[2021-05-11] MEDS ORDERED: Nitroglycerin 100MG/250ML BOT 250 ML ONE (03:50)
[2021-05-11] MEDS ORDERED: Fentanyl 100 MCG/2 ML VIAL ONE ×2 (03:50→04:44)
[2021-05-11] MEDS ORDERED: Midazolam HCl 2 mg/2 ml Vial ONE ×2 (03:51→04:44)
[2021-05-11 04:29] LABS: INR-International Normal Ratio 1.2; Prothrombin Time 15.3 sec (12.0-14.7)
[2021-05-11 04:31] LABS: Hemoglobin 15.8 g/dL (14.0-18.0); Mean Corpuscular HGB CONC 32.7 g/dL (32.0-36.0); Mean Corpuscular Hemoglobin 28.2 pg (27.0-31.0); Mean Corpuscular Volume 86.3 fL (78.0-98.0); Mean Platelet Volume 8.1 fL (7.4-10.4); PTT 69.2 sec (22.9-36.1); Platelet Count 202 thou/uL (130-400); RBC Distribution Width 13.8 % (11.5-14.5); Red Blood Cell (RBC) Count 5.59 mill/uL (4.70-6.10); White Blood Cell (WBC) Count 17.2 thou/uL (4.8-10.8)
[2021-05-11 04:36] LABS: ALT (SGPT) 19 U/L (8-55); AST (SGOT) 19 U/L (5-34); Albumin 4.3 g/dL (3.5-5.0); Alkaline Phosphatase 106 U/L (40-110); Anion Gap 19 mmol/L (10-20); BUN (Urea Nitrogen) 16 mg/dL (8.9-20.6); Bilirubin, Total 0.8 mg/dL (0.2-1.2); Calc. Creatinine Clearance 0 mL/min (70-130); Calcium 9.5 mg/dL (7.8-10.44); Carbon Dioxide 18 mmol/L (22-29); Chloride 103 mmol/L (98-107); Globulin 3.4 g/dL (2.4-3.5); Glucose 145 mg/dL (70-105); Potassium 3.3 mmol/L (3.5-5.1); Protein, Total 7.7 g/dL (6.0-8.3); Sodium 137 mmol/L (136-145)
[2021-05-11] MEDS ORDERED: TICAGRELOR 90 MG TABLET ONE (04:55)
[2021-05-11 05:02] LABS: Eosinophils 1 % (0-10); Lymphocytes 35 % (21-51); MDiff Complete? YES; Monocytes 4 % (0-10); Neutrophil 56 % (42-75); Platelet Morphology Comment Appears Adequate; RBC Morphology Normal; Reactive Lymphocytes 4 % (0-10)
[2021-05-11] MEDS ORDERED: Heparin 0 ML ONE (05:08)
[2021-05-11] MEDS ORDERED: Nitroglycerin 0.4 MG TAB (25 Tab Bottle) SL PRN (05:42)
[2021-05-11] MEDS ORDERED: Aspirin Chewable 81 MG TAB PO SCH (05:45)
[2021-05-11] MEDS: Sodium Chloride 0.9% 1,000 ML IV SCH ×3 (06:15→21:00)
[2021-05-11] MEDS ORDERED: Aspirin 81 mg Enteric Coated Tablet ONE (06:38)
[2021-05-11 08:46] VITALS: BMI 33.0
[2021-05-11 08:52] LABS: SARS-CoV-2 NAA Rapid Test Not Detected (NotDetected)
[2021-05-11] MEDS ORDERED: TICAGRELOR 90 MG TABLET PO SCH (09:00)
[2021-05-11] MEDS ORDERED: Empagliflozin 10 MG TAB PO SCH (09:00)
[2021-05-11 09:17] LABS: Troponin I 7.951 ng/mL (< 0.028)
[2021-05-11] MEDS: TICAGRELOR 90 MG TABLET PO SCH ×2 (09:38→21:00)
[2021-05-11] MEDS: Enoxaparin Sodium 80 MG/0.8 ML SYRINGE SC SCH ×2 (09:39→21:00)
[2021-05-11] MEDS: Lisinopril 2.5 MG TAB PO SCH (10:16)
[2021-05-11] MEDS: Metoprolol Tartrate 25 MG TAB PO SCH ×2 (10:16→20:59)
[2021-05-11] MEDS ORDERED: Iopamidol 370 76% 50 ML VIAL FS ONE (10:17)
[2021-05-11] MEDS ORDERED: Iopamidol 370 76% 100 ML VIAL ONE (10:17)
[2021-05-11 11:29] LABS: Troponin I 14.784 ng/mL (< 0.028)
[2021-05-11] MEDS: Morphine 4 MG/ML VIAL SLOW IVP PRN ×2 (18:20→22:02)
[2021-05-11] MEDS: Atorvastatin Calcium 40 MG TAB PO SCH (20:59)
[2021-05-11] MEDS ORDERED: Bupropion 100 MG SR TAB PO SCH (21:00)
[2021-05-12 04:14] LABS: #Basophils 0.1 thou/uL (0.0-0.2); #Eosinphils 0.2 thou/uL (0.0-0.7); #Lymphocytes 1.8 thou/uL (1.20-3.40); #Monocytes 0.4 thou/uL (0.11-0.59); #Neutrophils 3.9 thou/uL (1.40-6.50); %Basophils 0.9 % (0.0-1.0); %Eosinophils 2.6 % (0.0-10.0); %Monocytes 6.3 % (0.0-10.0); %Neutrophils 62.3 % (42.0-75.0); Hemoglobin 13.6 g/dL (14.0-18.0); Mean Corpuscular HGB CONC 33.5 g/dL (32.0-36.0); Mean Corpuscular Volume 86.6 fL (78.0-98.0); Mean Platelet Volume 7.2 fL (7.4-10.4); Platelet Count 120 thou/uL (130-400); RBC Distribution Width 13.5 % (11.5-14.5); Red Blood Cell (RBC) Count 4.68 mill/uL (4.70-6.10); White Blood Cell (WBC) Count 6.3 thou/uL (4.8-10.8)
[2021-05-12 04:37] LABS: ALT (SGPT) 20 U/L (8-55); AST (SGOT) 43 U/L (5-34); Albumin 3.8 g/dL (3.5-5.0); Alkaline Phosphatase 89 U/L (40-110); Anion Gap 12 mmol/L (10-20); BUN (Urea Nitrogen) 15 mg/dL (8.9-20.6); Bilirubin, Total 0.7 mg/dL (0.2-1.2); Calc. Creatinine Clearance 163 mL/min (70-130); Calcium 9.1 mg/dL (7.8-10.44); Carbon Dioxide 24 mmol/L (22-29); Cardiac Risk 6.7 (Less than 4.5); Chloride 105 mmol/L (98-107); Cholesterol 173 mg/dl (< 200 Desired); Globulin 2.7 g/dL (2.4-3.5); Glucose 159 mg/dL (70-105); HDL Cholesterol 26 mg/dL (>60 Neg Risk); LDL Cholesterol, Calculated 120 mg/dL; Protein, Total 6.5 g/dL (6.0-8.3); Sodium 137 mmol/L (136-145); Triglycerides 136 mg/dL (Less than 150)
[2021-05-12 05:04] LABS: Critical Call Chem Troponin I RESULT DECREASING; Troponin I 4.854 ng/mL (< 0.028)
[2021-05-12] MEDS: Lisinopril 2.5 MG TAB PO SCH (08:26)
[2021-05-12] MEDS: Bupropion 150 MG XL TAB PO SCH (08:27)
[2021-05-12] MEDS: Aspirin 81 mg Enteric Coated Tablet PO SCH (08:27)
[2021-05-12] MEDS: TICAGRELOR 90 MG TABLET PO SCH ×2 (08:28→19:52)
[2021-05-12] MEDS: Ferrous Sulfate 325 MG TAB PO SCH (08:28)
[2021-05-12] MEDS: Metoprolol Tartrate 25 MG TAB PO SCH ×2 (08:28→19:50)
[2021-05-12] MEDS: Empagliflozin 10 MG TAB PO SCH (08:29)
[2021-05-12] MEDS: traZODone HCl 50 MG TAB PO SCH (08:35)
[2021-05-12] MEDS ORDERED: Enoxaparin Sodium 80 MG/0.8 ML SYRINGE SC SCH (09:00)
[2021-05-12] MEDS: Alogliptin 6.25 MG TAB PO SCH (11:08)
[2021-05-12 13:28] LABS: Critical Call Chem Troponin I RESULT DECREASING; Troponin I 4.025 ng/mL (< 0.028)
[2021-05-12] MEDS ORDERED: Magnesium Citrate 300 ML BOT PO SCH (15:00)
[2021-05-12] MEDS: Sodium Chloride 0.9% 1,000 ML IV SCH (19:16)
[2021-05-12] MEDS: Atorvastatin Calcium 40 MG TAB PO SCH (19:49)
[2021-05-12] MEDS: Morphine 4 MG/ML VIAL SLOW IVP PRN (19:50)
[2021-05-13] MEDS: Morphine 4 MG/ML VIAL SLOW IVP PRN (00:09)
[2021-05-13] MEDS ORDERED: Calcium Carbonate 500 MG ChewTAB PO SCH (00:15)
[2021-05-13 08:10] VITALS: BP 109/72; TEMP 98.2
[2021-05-13] MEDS: TICAGRELOR 90 MG TABLET PO SCH (08:56)
[2021-05-13] MEDS: Aspirin 81 mg Enteric Coated Tablet PO SCH (08:56)
[2021-05-13] MEDS: Ferrous Sulfate 325 MG TAB PO SCH (08:57)
[2021-05-13] MEDS: Lisinopril 2.5 MG TAB PO SCH (08:57)
[2021-05-13] MEDS: Alogliptin 6.25 MG TAB PO SCH (08:57)
[2021-05-13] MEDS: traZODone HCl 50 MG TAB PO SCH (08:57)
[2021-05-13] MEDS: Metoprolol Tartrate 25 MG TAB PO SCH (08:57)
[2021-05-13] MEDS: Bupropion 150 MG XL TAB PO SCH (08:58)
[2021-05-13] MEDS: Empagliflozin 10 MG TAB PO SCH (09:42)
[2021-05-14] MEDS ORDERED: Clopidogrel Bisulfate 75 MG TAB PO SCH (09:00)
== END 2021-05-13 10:37 | disposition home or self-care (01) | DRG 248 ==
LOC: ERS 03:27 → SDC/OP 03:42 → PACU-TCU 05:42 → 2NO 15:46
PROVIDERS: ADMIT Internal Medicine Cardiovascular Disease; ATTEND Internal Medicine Cardiovascular Disease
PROC: 02703DZ Dilation of Coronary Artery, One Artery with Intraluminal Device, Percutaneous Approach (ICD-10-PCS; principal; 2021-05-11)
PROC: 02C03ZZ Extirpation of Matter from Coronary Artery, One Artery, Percutaneous Approach (ICD-10-PCS; 2021-05-11)
PROC: 4A023N7 Measurement of Cardiac Sampling and Pressure, Left Heart, Percutaneous Approach (ICD-10-PCS; 2021-05-11)
PROC: B2151ZZ Fluoroscopy of Left Heart using Low Osmolar Contrast (ICD-10-PCS; 2021-05-11)
PROC: B2111ZZ Fluoroscopy of Multiple Coronary Arteries using Low Osmolar Contrast (ICD-10-PCS; 2021-05-11)
DX: I21.4 Non-ST elevation (NSTEMI) myocardial infarction (principal); I49.01 Ventricular fibrillation; Z20.822 Contact with and (suspected) exposure to COVID-19; F41.9 Anxiety disorder, unspecified; F31.9 Bipolar disorder, unspecified; F43.10 Post-traumatic stress disorder, unspecified; F10.20 Alcohol dependence, uncomplicated; F17.210 Nicotine dependence, cigarettes, uncomplicated; F20.9 Schizophrenia, unspecified; E66.9 Obesity, unspecified; I25.10 Atherosclerotic heart disease of native coronary artery without angina pectoris; K70.30 Alcoholic cirrhosis of liver without ascites; K21.9 Gastro-esophageal reflux disease without esophagitis; E11.9 Type 2 diabetes mellitus without complications; E78.5 Hyperlipidemia, unspecified; Z68.33 Body mass index [BMI] 33.0-33.9, adult; Z79.899 Other long term (current) drug therapy; I24.9 Acute ischemic heart disease, unspecified
CPT/HCPCS: 36415; 36416; 71045; 80053; 80061; 84484; 85025; 85347; 85610; 85730; 92941; 93005; 93010; 93458; 93798; 94760; 97139; 99152; 99153; C1876; J1644; J1650; J2250; J2270; J3010; J7050; Q9967; U0002

== ENCOUNTER 2021-05-24 10:15 | Observation (INO) | payer OTHER ==
[2021-05-24 11:03] LABS: #Basophils 0.1 thou/uL (0.0-0.2); #Eosinphils 0.1 thou/uL (0.0-0.7); #Lymphocytes 2.7 thou/uL (1.20-3.40); #Monocytes 0.6 thou/uL (0.11-0.59); #Neutrophils 5.5 thou/uL (1.40-6.50); %Eosinophils 1.5 % (0.0-10.0); %Lymphocytes 29.7 % (21.0-51.0); %Monocytes 6.3 % (0.0-10.0); %Neutrophils 61.5 % (42.0-75.0); Hemoglobin 13.7 g/dL (14.0-18.0); Mean Corpuscular HGB CONC 31.5 g/dL (32.0-36.0); Mean Corpuscular Hemoglobin 26.9 pg (27.0-31.0); Mean Corpuscular Volume 85.5 fL (78.0-98.0); Mean Platelet Volume 7.5 fL (7.4-10.4); Platelet Count 170 thou/uL (130-400); RBC Distribution Width 13.5 % (11.5-14.5)
[2021-05-24 11:14] LABS: INR-International Normal Ratio 1.1; PTT 30.9 sec (22.9-36.1); Prothrombin Time 14.5 sec (12.0-14.7)
[2021-05-24 11:31] LABS: ALT (SGPT) 18 U/L (8-55); AST (SGOT) 21 U/L (5-34); Albumin 4.3 g/dL (3.5-5.0); Alkaline Phosphatase 92 U/L (40-110); Anion Gap 15 mmol/L (10-20); BUN (Urea Nitrogen) 17 mg/dL (8.9-20.6); Calc. Creatinine Clearance 0 mL/min (70-130); Calcium 9.4 mg/dL (7.8-10.44); Carbon Dioxide 21 mmol/L (22-29); Chloride 104 mmol/L (98-107); Globulin 3.4 g/dL (2.4-3.5); Glucose 102 mg/dL (70-105); Potassium 3.9 mmol/L (3.5-5.1); Protein, Total 7.7 g/dL (6.0-8.3); Sodium 136 mmol/L (136-145)
[2021-05-24 14:24] LABS: Troponin I Less than 0.010 ng/mL (< 0.028)
[2021-05-24] MEDS ORDERED: Dextrose 50% Abboject 50 ML SYRINGE SLOW IVP PRN (15:06)
[2021-05-24] MEDS ORDERED: Nitroglycerin 0.4 MG TAB (25 Tab Bottle) SL PRN (15:06)
[2021-05-24] MEDS ORDERED: Dextrose 5% in Water 1,000 ML IV PRN (15:06)
[2021-05-24] MEDS ORDERED: HumaLOG 300 UNITS/3 ML VIAL SC PRN (15:06)
[2021-05-24 15:12] VITALS: BMI 35.6
[2021-05-24] MEDS ORDERED: FLU VACC QS2021-22(6MOS UP)/PF 60 MCG/0.5 ML SYRINGE IM ONE (15:45)
[2021-05-24 17:20] LABS: Troponin I Less than 0.010 ng/mL (< 0.028)
[2021-05-24] MEDS ORDERED: Atorvastatin Calcium 40 MG TAB PO SCH (21:00)
[2021-05-24] MEDS: Naproxen 500 MG TAB PO SCH (21:40)
[2021-05-24] MEDS: Metoprolol Tartrate 25 MG TAB PO SCH (21:41)
[2021-05-24 22:34] LABS: SARS-CoV-2 PCR by NAA Not Detected (NotDetected)
[2021-05-25 08:33] VITALS: BP 92/53; TEMP 98.4
[2021-05-25] MEDS ORDERED: Lisinopril 2.5 MG TAB PO SCH (09:00)
[2021-05-25] MEDS ORDERED: Empagliflozin 10 MG TAB PO SCH (09:00)
[2021-05-25] MEDS ORDERED: Alogliptin 25 MG TAB PO SCH (09:00)
[2021-05-25] MEDS ORDERED: Ferrous Sulfate 325 MG TAB PO SCH (09:00)
[2021-05-25] MEDS ORDERED: Aspirin 81 mg Enteric Coated Tablet PO SCH (09:00)
[2021-05-25] MEDS ORDERED: Bupropion 150 MG XL TAB PO SCH (09:00)
[2021-05-25] MEDS ORDERED: Clopidogrel Bisulfate 75 MG TAB PO SCH (09:00)
[2021-05-25] MEDS: Naproxen 500 MG TAB PO SCH (10:34)
[2021-05-25] MEDS: Metoprolol Tartrate 25 MG TAB PO SCH (10:35)
== END 2021-05-25 10:50 | disposition home or self-care (01) ==
LOC: ERS 10:15 → ERHOLD 13:04 → 2SW 14:42
PROVIDERS: ADMIT Internal Medicine; ATTEND Internal Medicine
DX: R07.89 Other chest pain (principal); E11.9 Type 2 diabetes mellitus without complications; I25.2 Old myocardial infarction; I25.10 Atherosclerotic heart disease of native coronary artery without angina pectoris; K74.60 Unspecified cirrhosis of liver; E78.5 Hyperlipidemia, unspecified; I49.01 Ventricular fibrillation; Z86.74 Personal history of sudden cardiac arrest; Z87.891 Personal history of nicotine dependence; Z91.19 Patient's noncompliance with other medical treatment and regimen; Z79.02 Long term (current) use of antithrombotics/antiplatelets; Z79.82 Long term (current) use of aspirin; Z79.84 Long term (current) use of oral hypoglycemic drugs; Z79.899 Other long term (current) drug therapy; Z91.018 Allergy to other foods; Z95.5 Presence of coronary angioplasty implant and graft; Z20.822 Contact with and (suspected) exposure to COVID-19
CPT/HCPCS: 36415; 36416; 71045; 80053; 84484; 85025; 85610; 85730; 93005; G0378; J1815; U0003; U0005

== ENCOUNTER 2021-08-24 18:57 | Observation (INO) | payer OTHER ==
[2021-08-24 19:42] LABS: #Eosinphils 0.1 thou/uL (0.0-0.7); #Lymphocytes 1.3 thou/uL (1.20-3.40); #Monocytes 0.3 thou/uL (0.11-0.59); #Neutrophils 3.2 thou/uL (1.40-6.50); %Eosinophils 1.6 % (0.0-10.0); %Lymphocytes 26.9 % (21.0-51.0); %Monocytes 6.9 % (0.0-10.0); %Neutrophils 63.7 % (42.0-75.0); Hemoglobin 12.9 g/dL (14.0-18.0); Mean Corpuscular HGB CONC 35.1 g/dL (32.0-36.0); Mean Corpuscular Hemoglobin 31.3 pg (27.0-31.0); Platelet Count 111 thou/uL (130-400); RBC Distribution Width 12.9 % (11.5-14.5); Red Blood Cell (RBC) Count 4.12 mill/uL (4.70-6.10); White Blood Cell (WBC) Count 4.9 thou/uL (4.8-10.8)
[2021-08-24 20:05] LABS: ALT (SGPT) 12 U/L (8-55); AST (SGOT) 14 U/L (5-34); Albumin 3.9 g/dL (3.5-5.0); Alkaline Phosphatase 92 U/L (40-110); Anion Gap 9 mmol/L (10-20); BUN (Urea Nitrogen) 14 mg/dL (8.9-20.6); Bilirubin, Total 0.9 mg/dL (0.2-1.2); Calc. Creatinine Clearance 0 mL/min (70-130); Calcium 8.7 mg/dL (7.8-10.44); Carbon Dioxide 27 mmol/L (22-29); Chloride 102 mmol/L (98-107); Globulin 2.6 g/dL (2.4-3.5); Glucose 194 mg/dL (70-105); Potassium 3.4 mmol/L (3.5-5.1); Protein, Total 6.5 g/dL (6.0-8.3); Sodium 135 mmol/L (136-145)
[2021-08-24] MEDS ORDERED: Potassium Chloride 20 MEQ TAB ONE (22:02)
[2021-08-24 23:14] LABS: Troponin I Less than 0.010 ng/mL (< 0.028)
[2021-08-24] MEDS ORDERED: Acetaminophen 325 MG TAB PO PRN ×2 (23:14→23:30)
[2021-08-24] MEDS ORDERED: Senokot S 8.6-50 MG TAB PO PRN (23:14)
[2021-08-24] MEDS ORDERED: Bisacodyl 5 MG TAB PO PRN (23:14)
[2021-08-24] MEDS ORDERED: Ondansetron PF 4 MG/2 ML Vial IVP PRN ×2 (23:14→23:30)
[2021-08-24] MEDS ORDERED: Dextrose 5% in Water 1,000 ML IV PRN (23:25)
[2021-08-24] MEDS ORDERED: Dextrose 50% Abboject 50 ML SYRINGE SLOW IVP PRN (23:25)
[2021-08-24] MEDS ORDERED: HumaLOG 300 UNITS/3 ML VIAL SC PRN (23:25)
[2021-08-24] MEDS ORDERED: traZODone HCl 50 MG TAB PO PRN (23:28)
[2021-08-24] MEDS ORDERED: Nitroglycerin 0.4 MG TAB (25 Tab Bottle) SL PRN (23:28)
[2021-08-24] MEDS ORDERED: Ondansetron ODT 4 MG TAB SL PRN (23:30)
[2021-08-24] MEDS ORDERED: Sodium Chloride 0.9% 1,000 ML IV SCH (23:30)
[2021-08-24] MEDS ORDERED: Atorvastatin Calcium 40 MG TAB PO SCH (23:45)
[2021-08-24] MEDS ORDERED: Metoprolol Tartrate 25 MG TAB PO SCH (23:45)
[2021-08-24] MEDS ORDERED: Clopidogrel Bisulfate 75 MG TAB PO SCH (23:45)
[2021-08-24] MEDS ORDERED: Bupropion 150 MG XL TAB PO SCH (23:45)
[2021-08-25 00:13] VITALS: BMI 35.1
[2021-08-25] MEDS ORDERED: Gabapentin 300 MG CAP PO SCH (02:00)
[2021-08-25 02:19] LABS: Troponin I Less than 0.010 ng/mL (< 0.028)
[2021-08-25 05:46] LABS: Hemoglobin A1c 7.4 % (4.0-6.0)
[2021-08-25 05:55] LABS: #Eosinphils 0.1 thou/uL (0.0-0.7); #Lymphocytes 1.7 thou/uL (1.20-3.40); #Monocytes 0.3 thou/uL (0.11-0.59); #Neutrophils 2.3 thou/uL (1.40-6.50); %Basophils 0.6 % (0.0-1.0); %Eosinophils 1.8 % (0.0-10.0); %Lymphocytes 38.9 % (21.0-51.0); %Monocytes 6.4 % (0.0-10.0); %Neutrophils 52.3 % (42.0-75.0); Hemoglobin 12.4 g/dL (14.0-18.0); Mean Corpuscular HGB CONC 34.4 g/dL (32.0-36.0); Mean Corpuscular Hemoglobin 30.9 pg (27.0-31.0); Mean Corpuscular Volume 89.6 fL (78.0-98.0); Mean Platelet Volume 7.5 fL (7.4-10.4); Platelet Count 112 thou/uL (130-400); RBC Distribution Width 12.9 % (11.5-14.5); Red Blood Cell (RBC) Count 4.03 mill/uL (4.70-6.10); White Blood Cell (WBC) Count 4.5 thou/uL (4.8-10.8)
[2021-08-25 06:06] LABS: ALT (SGPT) 13 U/L (8-55); AST (SGOT) 15 U/L (5-34); Albumin 3.7 g/dL (3.5-5.0); Alkaline Phosphatase 87 U/L (40-110); Anion Gap 11 mmol/L (10-20); BUN (Urea Nitrogen) 14 mg/dL (8.9-20.6); Bilirubin, Total 0.6 mg/dL (0.2-1.2); Calc. Creatinine Clearance 134 mL/min (70-130); Calcium 8.7 mg/dL (7.8-10.44); Carbon Dioxide 25 mmol/L (22-29); Cardiac Risk 4.4 (Less than 4.5); Chloride 103 mmol/L (98-107); Cholesterol 118 mg/dl (< 200 Desired); Globulin 2.6 g/dL (2.4-3.5); Glucose 263 mg/dL (70-105); HDL Cholesterol 27 mg/dL (>60 Neg Risk); LDL Cholesterol, Calculated 67 mg/dL; Potassium 3.9 mmol/L (3.5-5.1); Protein, Total 6.3 g/dL (6.0-8.3); Sodium 135 mmol/L (136-145); Triglycerides 120 mg/dL (Less than 150)
[2021-08-25] MEDS: HumaLOG 300 UNITS/3 ML VIAL SC PRN (06:20)
[2021-08-25] MEDS ORDERED: Aspirin 325 MG TAB PO SCH (08:00)
[2021-08-25] MEDS ORDERED: Magnesium Citrate 300 ML BOT PO PRN (08:50)
[2021-08-25] MEDS: Gabapentin 300 MG CAP PO SCH ×2 (09:24→20:41)
[2021-08-25] MEDS: Aspirin 81 mg Enteric Coated Tablet PO SCH (09:24)
[2021-08-25] MEDS: Clopidogrel Bisulfate 75 MG TAB PO SCH (09:24)
[2021-08-25] MEDS: Lisinopril 2.5 MG TAB PO SCH (09:24)
[2021-08-25] MEDS: Metoprolol Tartrate 25 MG TAB PO SCH ×2 (09:25→20:41)
[2021-08-25] MEDS: Bupropion 150 MG XL TAB PO SCH (09:25)
[2021-08-25 17:22] LABS: SARS-CoV-2 PCR by NAA Not Detected (NotDetected)
[2021-08-25] MEDS ORDERED: Atorvastatin Calcium 40 MG TAB PO SCH (21:00)
[2021-08-26 05:38] LABS: #Eosinphils 0.1 thou/uL (0.0-0.7); #Lymphocytes 1.5 thou/uL (1.20-3.40); #Monocytes 0.2 thou/uL (0.11-0.59); #Neutrophils 2.5 thou/uL (1.40-6.50); %Basophils 0.8 % (0.0-1.0); %Eosinophils 2.1 % (0.0-10.0); %Lymphocytes 34.9 % (21.0-51.0); %Monocytes 5.5 % (0.0-10.0); %Neutrophils 56.7 % (42.0-75.0); Mean Corpuscular Hemoglobin 29.6 pg (27.0-31.0); Mean Corpuscular Volume 89.8 fL (78.0-98.0); Mean Platelet Volume 7.9 fL (7.4-10.4); Platelet Count 114 thou/uL (130-400); Red Blood Cell (RBC) Count 4.37 mill/uL (4.70-6.10); White Blood Cell (WBC) Count 4.4 thou/uL (4.8-10.8)
[2021-08-26 05:43] LABS: Anion Gap 12 mmol/L (10-20); BUN (Urea Nitrogen) 13 mg/dL (8.9-20.6); Calc. Creatinine Clearance 144 mL/min (70-130); Calcium 9.1 mg/dL (7.8-10.44); Carbon Dioxide 25 mmol/L (22-29); Chloride 103 mmol/L (98-107); Glucose 281 mg/dL (70-105); Magnesium 2.2 mg/dL (1.6-2.6); Phosphorus 3.1 mg/dL (2.3-4.7); Potassium 4.4 mmol/L (3.5-5.1); Sodium 136 mmol/L (136-145)
[2021-08-26] MEDS: Lisinopril 2.5 MG TAB PO SCH (10:47)
[2021-08-26] MEDS: Bupropion 150 MG XL TAB PO SCH (10:47)
[2021-08-26] MEDS: Metoprolol Tartrate 25 MG TAB PO SCH (10:48)
[2021-08-26] MEDS: Aspirin 81 mg Enteric Coated Tablet PO SCH (10:48)
[2021-08-26] MEDS: Clopidogrel Bisulfate 75 MG TAB PO SCH (10:48)
[2021-08-26] MEDS: Gabapentin 300 MG CAP PO SCH (10:48)
[2021-08-26] MEDS: HumaLOG 300 UNITS/3 ML VIAL SC PRN (10:55)
[2021-08-26 14:56] VITALS: BP 135/81; TEMP 98.4
== END 2021-08-26 15:00 | disposition home or self-care (01) ==
LOC: ERS 18:57 → 2NO 22:16
PROVIDERS: ADMIT Student in an Organized Health Care Education/Training Program; ATTEND Internal Medicine
DX: R07.89 Other chest pain (principal); R06.02 Shortness of breath; I25.10 Atherosclerotic heart disease of native coronary artery without angina pectoris; K70.30 Alcoholic cirrhosis of liver without ascites; E11.65 Type 2 diabetes mellitus with hyperglycemia; F43.10 Post-traumatic stress disorder, unspecified; I25.2 Old myocardial infarction; F10.11 Alcohol abuse, in remission; F41.9 Anxiety disorder, unspecified; D61.818 Other pancytopenia; Z87.820 Personal history of traumatic brain injury; Z87.891 Personal history of nicotine dependence; Z79.02 Long term (current) use of antithrombotics/antiplatelets; Z79.82 Long term (current) use of aspirin; Z79.899 Other long term (current) drug therapy; Z91.018 Allergy to other foods; Z95.5 Presence of coronary angioplasty implant and graft; Z20.822 Contact with and (suspected) exposure to COVID-19
CPT/HCPCS: 36415; 36416; 71045; 78452; 80048; 80053; 80061; 82140; 82533; 83036; 83735; 84100; 84443; 84484; 85025; 85379; 93005; 93017; A9500; G0378; J0153; J1815; J7050; U0003; U0005

== ENCOUNTER 2021-12-09 02:25 | Observation (INO) | payer OTHER ==
[2021-12-09 02:46] LABS: #Basophils 0.1 thou/uL (0.0-0.2); #Eosinphils 0.2 thou/uL (0.0-0.7); #Lymphocytes 2.5 thou/uL (1.20-3.40); #Monocytes 0.5 thou/uL (0.11-0.59); #Neutrophils 4.6 thou/uL (1.40-6.50); %Basophils 0.8 % (0.0-1.0); %Lymphocytes 32.4 % (21.0-51.0); %Monocytes 5.8 % (0.0-10.0); %Neutrophils 59.1 % (42.0-75.0); Hemoglobin 15.9 g/dL (14.0-18.0); Mean Corpuscular HGB CONC 35.2 g/dL (32.0-36.0); Mean Corpuscular Hemoglobin 33.6 pg (27.0-31.0); Mean Corpuscular Volume 95.4 fL (78.0-98.0); Mean Platelet Volume 6.5 fL (7.4-10.4); Platelet Count 153 thou/uL (130-400); Red Blood Cell (RBC) Count 4.73 mill/uL (4.70-6.10); White Blood Cell (WBC) Count 7.8 thou/uL (4.8-10.8)
[2021-12-09 03:12] LABS: ALT (SGPT) 12 U/L (8-55); AST (SGOT) 18 U/L (5-34); Albumin 4.4 g/dL (3.5-5.0); Alkaline Phosphatase 99 U/L (40-110); Anion Gap 16 mmol/L (10-20); BUN (Urea Nitrogen) 11 mg/dL (8.9-20.6); Bilirubin, Total 1.1 mg/dL (0.2-1.2); Calc. Creatinine Clearance 0 mL/min (70-130); Calcium 9.6 mg/dL (7.8-10.44); Carbon Dioxide 27 mmol/L (22-29); Chloride 100 mmol/L (98-107); Globulin 3.2 g/dL (2.4-3.5); Glucose 195 mg/dL (70-105); Potassium 3.8 mmol/L (3.5-5.1); Protein, Total 7.6 g/dL (6.0-8.3); Sodium 139 mmol/L (136-145)
[2021-12-09] MEDS ORDERED: Lorazepam 2 MG/ML VIAL ONE (03:22)
[2021-12-09] MEDS ORDERED: Ondansetron PF 4 MG/2 ML Vial ONE (03:48)
[2021-12-09] MEDS ORDERED: Ondansetron ODT 4 MG TAB SL PRN (04:15)
[2021-12-09] MEDS ORDERED: Acetaminophen 325 MG TAB PO PRN (04:15)
[2021-12-09] MEDS ORDERED: Ondansetron PF 4 MG/2 ML Vial IVP PRN (04:15)
[2021-12-09] MEDS ORDERED: Lactated Ringer's 1,000 ML IV SCH (04:15)
[2021-12-09 04:17] LABS: Acetaminophen Less than 10.0 mcg/mL (10.0-30.0); Alcohol Less than 10 mg/dL (Less than 10); Salicylate Less than 8.0 mg/dL (15.0-30.0)
[2021-12-09] MEDS ORDERED: Aspirin 325 MG TAB ONE (04:24)
[2021-12-09] MEDS ORDERED: Insulin Regular 300 UNITS/3 ML VIAL SC PRN ×2 (04:30)
[2021-12-09] MEDS ORDERED: Senokot S 8.6-50 MG TAB PO PRN (04:30)
[2021-12-09] MEDS ORDERED: Dextrose 5% in Water 1,000 ML IV PRN (04:30)
[2021-12-09] MEDS ORDERED: Dextrose 50% Abboject 50 ML SYRINGE SLOW IVP PRN (04:30)
[2021-12-09] MEDS ORDERED: Nitroglycerin 0.4 MG TAB (25 Tab Bottle) SL PRN (04:33)
[2021-12-09] MEDS ORDERED: Morphine 2 MG/ML VIAL SLOW IVP PRN ×2 (04:33)
[2021-12-09] MEDS ORDERED: hydrALAZINE 20 MG/ML VIAL SLOW IVP PRN (04:37)
[2021-12-09] MEDS ORDERED: Enoxaparin Sodium 40 MG/0.4 ML SYRINGE SC SCH (05:00)
[2021-12-09 05:53] VITALS: BMI 34.5
[2021-12-09 07:10] LABS: Troponin I Less than 0.010 ng/mL (< 0.028)
[2021-12-09] MEDS ORDERED: traZODone HCl 50 MG TAB PO PRN (07:52)
[2021-12-09] MEDS ORDERED: Non-Formulary Item 1 EACH (Risperidone [Risperidone] 2 MG Tablet) PO SCH (09:00)
[2021-12-09] MEDS ORDERED: Aspirin 81 mg Enteric Coated Tablet PO SCH (09:00)
[2021-12-09] MEDS ORDERED: Non-Formulary Item 1 EACH (Omeprazole [Omeprazole] 20 MG Tablet.Dr) PO SCH (09:00)
[2021-12-09] MEDS ORDERED: risperiDONE 1 MG TAB PO SCH (09:00)
[2021-12-09] MEDS ORDERED: Bupropion 150 MG XL TAB PO SCH (09:00)
[2021-12-09 09:39] LABS: Troponin I Less than 0.010 ng/mL (< 0.028)
[2021-12-09] MEDS ORDERED: Ketorolac Tromethamine 30 MG/ML VIAL IVP SCH (10:00)
[2021-12-09 12:13] LABS: Bacteria/HPF None Seen HPF (None Seen); Bilirubin Negative (Negative); Blood, Urine Negative (Negative); Clarity Clear (Clear); Glucose, Urine (Dipstick) Greater than 1000 mg/dL (Negative); Ketone, Urine Trace mg/dL (Negative); Leukocyte Negative Leu/uL (Negative); Nitrite Negative (Negative); Protein, Urine (Dipstick) Negative (Neg-Trace); RBC/HPF 0-3 HPF (0-3); Squamous Epithelial 0-3 HPF (0-3); Urobilinogen 3 mg/dL (Less than 2); WBC/HPF 0-3 HPF (0-3); pH, Urine 5.5 (5.0-9.0)
[2021-12-09 12:15] LABS: Specific Gravity, Urine 1.049 (1.002-1.036)
[2021-12-09 12:16] LABS: Urine Culture Reflex No No
[2021-12-09] MEDS ORDERED: Ibuprofen 600 MG TAB PO SCH (16:00)
[2021-12-09 16:43] VITALS: BP 101/57; TEMP 98
[2021-12-09] MEDS ORDERED: Atorvastatin Calcium 40 MG TAB PO SCH (21:00)
[2021-12-10] MEDS ORDERED: Enoxaparin Sodium 40 MG/0.4 ML SYRINGE SC SCH (09:00)
== END 2021-12-09 16:57 | disposition home or self-care (01) ==
LOC: ERS 02:25 → 2SW 03:58
PROVIDERS: ADMIT Internal Medicine; ATTEND Internal Medicine
DX: R07.89 Other chest pain (principal); G40.409 Other generalized epilepsy and epileptic syndromes, not intractable, without status epilepticus; I25.10 Atherosclerotic heart disease of native coronary artery without angina pectoris; E11.65 Type 2 diabetes mellitus with hyperglycemia; K70.30 Alcoholic cirrhosis of liver without ascites; I10 Essential (primary) hypertension; F17.220 Nicotine dependence, chewing tobacco, uncomplicated; F10.11 Alcohol abuse, in remission; I25.2 Old myocardial infarction; R06.02 Shortness of breath; F12.10 Cannabis abuse, uncomplicated; R30.0 Dysuria; Z79.02 Long term (current) use of antithrombotics/antiplatelets; Z79.82 Long term (current) use of aspirin; Z79.84 Long term (current) use of oral hypoglycemic drugs; Z79.899 Other long term (current) drug therapy; Z91.018 Allergy to other foods; Z95.5 Presence of coronary angioplasty implant and graft; Z20.822 Contact with and (suspected) exposure to COVID-19
CPT/HCPCS: 36415; 36416; 71045; 80053; 80307; 81001; 84484; 85025; 93005; 96372; 96374; 96375; G0378; J1650; J1885; J2060; J2405; J7120; U0003; U0005

== ENCOUNTER 2022-02-02 13:24 | Inpatient (IN) | payer OTHER ==
[2022-02-02 13:46] LABS: #Basophils 0.1 thou/uL (0.0-0.2); #Eosinphils 0.1 thou/uL (0.0-0.7); #Lymphocytes 2.2 thou/uL (1.20-3.40); #Monocytes 0.5 thou/uL (0.11-0.59); #Neutrophils 3.6 thou/uL (1.40-6.50); %Basophils 1.2 % (0.0-1.0); %Lymphocytes 33.5 % (21.0-51.0); %Monocytes 7.2 % (0.0-10.0); %Neutrophils 56.2 % (42.0-75.0); Hemoglobin 14.5 g/dL (14.0-18.0); Mean Corpuscular HGB CONC 34.3 g/dL (32.0-36.0); Mean Corpuscular Hemoglobin 32.8 pg (27.0-31.0); Mean Corpuscular Volume 95.5 fL (78.0-98.0); Mean Platelet Volume 7.5 fL (7.4-10.4); Platelet Count 121 thou/uL (130-400); RBC Distribution Width 13.5 % (11.5-14.5); Red Blood Cell (RBC) Count 4.43 mill/uL (4.70-6.10); White Blood Cell (WBC) Count 6.4 thou/uL (4.8-10.8)
[2022-02-02 14:11] LABS: ALT (SGPT) 23 U/L (8-55); AST (SGOT) 25 U/L (5-34); Albumin 4.1 g/dL (3.5-5.0); Alkaline Phosphatase 107 U/L (40-110); Anion Gap 14 mmol/L (10-20); BUN (Urea Nitrogen) 10 mg/dL (8.9-20.6); Bilirubin, Total 1.7 mg/dL (0.2-1.2); Calc. Creatinine Clearance 0 mL/min (70-130); Calcium 9.4 mg/dL (7.8-10.44); Carbon Dioxide 23 mmol/L (22-29); Chloride 99 mmol/L (98-107); Estimated GFR 103; Globulin 3.2 g/dL (2.4-3.5); Glucose 168 mg/dL (70-105); Lipase 19 U/L (8-78); Protein, Total 7.3 g/dL (6.0-8.3); Sodium 133 mmol/L (136-145)
[2022-02-02] MEDS ORDERED: Mag-Al 1200 mg/1200 mg/30 ML UDCUP ONE (14:19)
[2022-02-02] MEDS ORDERED: Morphine 4 MG/ML VIAL ONE (14:19)
[2022-02-02] MEDS ORDERED: Lidocaine Viscous Sol 2% 15 ml UD Cup ONE (14:19)
[2022-02-02] MEDS ORDERED: Pantoprazole 40 MG VIAL ONE (14:19)
[2022-02-02] MEDS ORDERED: Ondansetron PF 4 MG/2 ML Vial ONE (14:19)
[2022-02-02] MEDS ORDERED: Bisacodyl 5 MG TAB PO PRN (16:03)
[2022-02-02] MEDS ORDERED: Senokot S 8.6-50 MG TAB PO PRN (16:03)
[2022-02-02] MEDS ORDERED: Aspirin Chewable 81 MG TAB PO SCH (16:30)
[2022-02-02 17:09] LABS: Troponin I Less than 0.010 ng/mL (< 0.028)
[2022-02-02 17:11] LABS: Magnesium 1.9 mg/dL (1.6-2.6)
[2022-02-02] MEDS ORDERED: Potassium Chloride 20 MEQ TAB PO SCH (17:30)
[2022-02-02 17:32] VITALS: BMI 34.2
[2022-02-02] MEDS: Acetaminophen 325 MG TAB PO PRN (20:41)
[2022-02-02 20:54] LABS: Potassium 3.4 mmol/L (3.5-5.1)
[2022-02-02 21:06] LABS: Troponin I Less than 0.010 ng/mL (< 0.028)
[2022-02-02] MEDS ORDERED: Ibuprofen 600 MG TAB PO PRN (21:37)
[2022-02-02] MEDS ORDERED: Electrolyte Replacement Protocol 1 EACH FS SCH (21:45)
[2022-02-03 05:35] LABS: Hemoglobin 13.9 g/dL (14.0-18.0); Mean Corpuscular HGB CONC 34.7 g/dL (32.0-36.0); Mean Corpuscular Hemoglobin 33.3 pg (27.0-31.0); Mean Platelet Volume 7.4 fL (7.4-10.4); Platelet Count 98 thou/uL (130-400); RBC Distribution Width 13.3 % (11.5-14.5); Red Blood Cell (RBC) Count 4.17 mill/uL (4.70-6.10); White Blood Cell (WBC) Count 4.2 thou/uL (4.8-10.8)
[2022-02-03 05:46] LABS: Anion Gap 13 mmol/L (10-20); BUN (Urea Nitrogen) 17 mg/dL (8.9-20.6); Calc. Creatinine Clearance 175 mL/min (70-130); Calcium 9.1 mg/dL (7.8-10.44); Carbon Dioxide 24 mmol/L (22-29); Chloride 102 mmol/L (98-107); Estimated GFR 107; Glucose 159 mg/dL (70-105); Potassium 3.8 mmol/L (3.5-5.1); Sodium 135 mmol/L (136-145)
[2022-02-03 05:56] LABS: #Basophils 0.1 thou/uL (0.0-0.2); #Eosinphils 0.1 thou/uL (0.0-0.7); #Lymphocytes 1.5 thou/uL (1.20-3.40); #Monocytes 0.4 thou/uL (0.11-0.59); #Neutrophils 2.2 thou/uL (1.40-6.50); %Basophils 1.5 % (0.0-1.0); %Eosinophils 1.7 % (0.0-10.0); %Lymphocytes 35.4 % (21.0-51.0); %Monocytes 8.8 % (0.0-10.0); %Neutrophils 52.6 % (42.0-75.0); Platelet Morphology Comment Appears Decreased; RBC Morphology Normal
[2022-02-03] MEDS ORDERED: traZODone HCl 50 MG TAB PO PRN (07:28)
[2022-02-03] MEDS ORDERED: Magnesium 2 GM/50 ML(in water) 2 GM in Premix Bag 1 BAG IVPB SCH (08:00)
[2022-02-03] MEDS ORDERED: Iopamidol 370 76% 100 ML VIAL ONE (08:29)
[2022-02-03] MEDS ORDERED: Liraglutide [Victoza 2-Pak] 0.6 MG/0.1 ML Pen.Injctr SC SCH (09:00)
[2022-02-03] MEDS ORDERED: Lactulose 10 GM/15 ML Oral Solution PO SCH (09:00)
[2022-02-03] MEDS ORDERED: Communication Order-Pharmacy FS SCH (10:15)
[2022-02-03] MEDS: Gabapentin 300 MG CAP PO SCH ×2 (10:37→20:10)
[2022-02-03] MEDS: risperiDONE 1 MG TAB PO SCH ×2 (10:40→20:12)
[2022-02-03] MEDS: Bupropion 150 MG XL TAB PO SCH (10:40)
[2022-02-03] MEDS: Benztropine 1 MG TAB PO SCH (10:40)
[2022-02-03] MEDS: Empagliflozin 25 MG TAB PO SCH (10:41)
[2022-02-03] MEDS: Aspirin Chewable 81 MG TAB PO SCH (10:41)
[2022-02-03] MEDS: Clopidogrel Bisulfate 75 MG TAB PO SCH (10:43)
[2022-02-03] MEDS: Metoprolol Tartrate 25 MG TAB PO SCH ×2 (10:44→20:10)
[2022-02-03] MEDS: Lisinopril 2.5 MG TAB PO SCH (10:44)
[2022-02-03] MEDS: Bisacodyl 10 MG SUPP PR SCH ×3 (10:45→23:03)
[2022-02-03] MEDS ORDERED: Lidocaine 1% PF 5 ML VIAL ONE (11:48)
[2022-02-03] MEDS ORDERED: Verapamil 5 MG/2 ML VIAL ONE (11:59)
[2022-02-03] MEDS ORDERED: Nitroglycerin 100MG/250ML BOT 250 ML ONE (11:59)
[2022-02-03] MEDS ORDERED: Heparin 10,000 UNITS/ 10 ML VIAL ONE ×2 (11:59→13:14)
[2022-02-03] MEDS ORDERED: hydrOXYzine 25 MG TAB PO SCH (12:00)
[2022-02-03] MEDS ORDERED: Magnesium Citrate 300 ML BOT PO SCH ×2 (12:00→14:00)
[2022-02-03] MEDS ORDERED: Fentanyl 100 MCG/2 ML VIAL ONE (12:24)
[2022-02-03] MEDS ORDERED: Midazolam HCl 2 mg/2 ml Vial ONE (12:24)
[2022-02-03] MEDS ORDERED: Clopidogrel Bisulfate 300 MG TAB ONE (13:33)
[2022-02-03] MEDS ORDERED: Aspirin Chewable 81 MG TAB ONE (13:37)
[2022-02-03] MEDS ORDERED: Aspirin 325 MG TAB ONE (13:37)
[2022-02-03] MEDS ORDERED: Clopidogrel Bisulfate 75 MG TAB ONE (13:39)
[2022-02-03] MEDS: Acetaminophen 325 MG TAB PO PRN (20:16)
[2022-02-03] MEDS ORDERED: Atorvastatin Calcium 40 MG TAB PO SCH (21:00)
[2022-02-04 05:19] LABS: #Lymphocytes 1.1 thou/uL (1.20-3.40); #Monocytes 0.4 thou/uL (0.11-0.59); #Neutrophils 2.2 thou/uL (1.40-6.50); %Basophils 1.1 % (0.0-1.0); %Lymphocytes 30.1 % (21.0-51.0); %Monocytes 9.3 % (0.0-10.0); %Neutrophils 58.5 % (42.0-75.0); ALT (SGPT) 18 U/L (8-55); AST (SGOT) 23 U/L (5-34); Albumin 3.5 g/dL (3.5-5.0); Alkaline Phosphatase 89 U/L (40-110); Anion Gap 13 mmol/L (10-20); BUN (Urea Nitrogen) 15 mg/dL (8.9-20.6); Bilirubin, Total 0.8 mg/dL (0.2-1.2); Calc. Creatinine Clearance 160 mL/min (70-130); Calcium 8.6 mg/dL (7.8-10.44); Carbon Dioxide 25 mmol/L (22-29); Chloride 104 mmol/L (98-107); Estimated GFR 100; Globulin 2.9 g/dL (2.4-3.5); Glucose 264 mg/dL (70-105); Hemoglobin 12.7 g/dL (14.0-18.0); Magnesium 2.3 mg/dL (1.6-2.6); Mean Corpuscular HGB CONC 35.1 g/dL (32.0-36.0); Mean Corpuscular Hemoglobin 33.8 pg (27.0-31.0); Mean Corpuscular Volume 96.1 fL (78.0-98.0); Mean Platelet Volume 7.5 fL (7.4-10.4); Platelet Count 92 thou/uL (130-400); Potassium 4.3 mmol/L (3.5-5.1); Protein, Total 6.4 g/dL (6.0-8.3); RBC Distribution Width 13.2 % (11.5-14.5); Red Blood Cell (RBC) Count 3.77 mill/uL (4.70-6.10); Sodium 138 mmol/L (136-145); White Blood Cell (WBC) Count 3.8 thou/uL (4.8-10.8)
[2022-02-04] MEDS: Bisacodyl 10 MG SUPP PR SCH (08:04)
[2022-02-04] MEDS: Aspirin Chewable 81 MG TAB PO SCH (08:04)
[2022-02-04] MEDS: Benztropine 1 MG TAB PO SCH (08:05)
[2022-02-04] MEDS: Bupropion 150 MG XL TAB PO SCH (08:06)
[2022-02-04] MEDS: Clopidogrel Bisulfate 75 MG TAB PO SCH (08:06)
[2022-02-04] MEDS: Lisinopril 2.5 MG TAB PO SCH (08:07)
[2022-02-04] MEDS: Empagliflozin 25 MG TAB PO SCH (08:07)
[2022-02-04] MEDS: Gabapentin 300 MG CAP PO SCH (08:07)
[2022-02-04] MEDS: risperiDONE 1 MG TAB PO SCH (08:08)
[2022-02-04] MEDS: Metoprolol Tartrate 25 MG TAB PO SCH (08:08)
[2022-02-04] MEDS: Acetaminophen 325 MG TAB PO PRN (08:09)
[2022-02-04 11:43] VITALS: BP 141/82; TEMP 97.9
== END 2022-02-04 11:48 | disposition home or self-care (01) | DRG 249 ==
LOC: ERS 13:24 → EEVIPCON 13:24 → 2SW 14:36 → OBSVTOIN 02-03 15:33
PROVIDERS: ADMIT Internal Medicine; ATTEND Internal Medicine
PROC: 02703DZ Dilation of Coronary Artery, One Artery with Intraluminal Device, Percutaneous Approach (ICD-10-PCS; principal; 2022-02-03)
PROC: B2111ZZ Fluoroscopy of Multiple Coronary Arteries using Low Osmolar Contrast (ICD-10-PCS; 2022-02-03)
PROC: B2151ZZ Fluoroscopy of Left Heart using Low Osmolar Contrast (ICD-10-PCS; 2022-02-03)
PROC: 4A023N7 Measurement of Cardiac Sampling and Pressure, Left Heart, Percutaneous Approach (ICD-10-PCS; 2022-02-03)
DX: T82.855A Stenosis of coronary artery stent, initial encounter (principal); I85.10 Secondary esophageal varices without bleeding; I25.118 Atherosclerotic heart disease of native coronary artery with other forms of angina pectoris; Z20.822 Contact with and (suspected) exposure to COVID-19; F20.9 Schizophrenia, unspecified; F31.9 Bipolar disorder, unspecified; E11.9 Type 2 diabetes mellitus without complications; F43.10 Post-traumatic stress disorder, unspecified; E87.6 Hypokalemia; K59.00 Constipation, unspecified; I10 Essential (primary) hypertension; Y83.1 Surgical operation with implant of artificial internal device as the cause of abnormal reaction of the patient, or of later complication, without mention of misadventure at the time of the procedure; K70.30 Alcoholic cirrhosis of liver without ascites; Z91.018 Allergy to other foods; Z79.899 Other long term (current) drug therapy; Z79.82 Long term (current) use of aspirin; Z79.02 Long term (current) use of antithrombotics/antiplatelets; Z86.74 Personal history of sudden cardiac arrest; Z95.5 Presence of coronary angioplasty implant and graft; Z82.49 Family history of ischemic heart disease and other diseases of the circulatory system; Z87.891 Personal history of nicotine dependence; Z87.820 Personal history of traumatic brain injury
CPT/HCPCS: 36415; 71045; 80048; 80053; 83690; 83735; 84484; 85025; 85347; 92928; 93005; 93010; 93458; 93798; 94760; 96365; 96374; 96375; 99152; 99153; C1769; C1876; C1894; C9113; G0378; J1644; J2250; J2270; J2405; J3010; J3475; Q9967; U0003; U0005

== ENCOUNTER 2022-03-10 23:13 | Emergency (ER) | payer OTHER ==
[2022-03-10] MEDS ORDERED: Lidocaine Viscous Sol 2% 15 ml UD Cup ONE (23:29)
[2022-03-10] MEDS ORDERED: Mag-Al 1200 mg/1200 mg/30 ML UDCUP ONE (23:29)
[2022-03-10 23:45] LABS: #Basophils 0.1 thou/uL (0.0-0.2); #Eosinphils 0.1 thou/uL (0.0-0.7); #Lymphocytes 1.9 thou/uL (1.20-3.40); #Monocytes 0.4 thou/uL (0.11-0.59); #Neutrophils 3.2 thou/uL (1.40-6.50); %Eosinophils 1.5 % (0.0-10.0); %Lymphocytes 33.4 % (21.0-51.0); %Monocytes 7.3 % (0.0-10.0); %Neutrophils 56.9 % (42.0-75.0); Hemoglobin 15.4 g/dL (14.0-18.0); Mean Corpuscular HGB CONC 35.2 g/dL (32.0-36.0); Mean Corpuscular Volume 96.7 fL (78.0-98.0); Mean Platelet Volume 6.9 fL (7.4-10.4); Platelet Count 121 thou/uL (130-400); RBC Distribution Width 14.1 % (11.5-14.5); Red Blood Cell (RBC) Count 4.51 mill/uL (4.70-6.10); White Blood Cell (WBC) Count 5.6 thou/uL (4.8-10.8)
[2022-03-11] LABS: ALT (SGPT) 37 U/L (8-55); AST (SGOT) 49 U/L (5-34); Albumin 4.1 g/dL (3.5-5.0); Alkaline Phosphatase 106 U/L (40-110); Anion Gap 17 mmol/L (10-20); BUN (Urea Nitrogen) 7 mg/dL (8.9-20.6); Bilirubin, Total 1.4 mg/dL (0.2-1.2); Calc. Creatinine Clearance 0 mL/min (70-130); Calcium 8.6 mg/dL (7.8-10.44); Carbon Dioxide 25 mmol/L (22-29); Chloride 97 mmol/L (98-107); Estimated GFR 82; Globulin 3.3 g/dL (2.4-3.5); Glucose 338 mg/dL (70-105); Potassium 3.5 mmol/L (3.5-5.1); Protein, Total 7.4 g/dL (6.0-8.3); Sodium 135 mmol/L (136-145)
== END 2022-03-11 01:55 | disposition home or self-care (01) ==
LOC: ERS 23:13
DX: R07.9 Chest pain, unspecified (principal); R53.1 Weakness; E11.9 Type 2 diabetes mellitus without complications; F17.220 Nicotine dependence, chewing tobacco, uncomplicated; Z79.899 Other long term (current) drug therapy; Z79.02 Long term (current) use of antithrombotics/antiplatelets
CPT/HCPCS: 36415; 70450; 71045; 80053; 84484; 85025; 93005

== ENCOUNTER 2022-04-07 19:12 | Inpatient (IN) | payer OTHER ==
[2022-04-07 19:54] LABS: Bilirubin Negative (Negative); Blood, Urine Negative (Negative); Clarity Clear (Clear); Glucose, Urine (Dipstick) Greater than 1000 mg/dL (Negative); Ketone, Urine Negative (Negative); Leukocyte Negative Leu/uL (Negative); Nitrite Negative (Negative); Protein, Urine (Dipstick) Negative (Neg-Trace); Specific Gravity, Urine 1.036 (1.002-1.036); Urobilinogen 3 mg/dL (Less than 2)
[2022-04-07 19:54] LABS: #Lymphocytes 1.2 thou/uL (1.20-3.40); #Monocytes 0.4 thou/uL (0.11-0.59); #Neutrophils 4.5 thou/uL (1.40-6.50); %Basophils 0.6 % (0.0-1.0); %Eosinophils 0.7 % (0.0-10.0); %Lymphocytes 19.5 % (21.0-51.0); %Monocytes 6.9 % (0.0-10.0); %Neutrophils 72.3 % (42.0-75.0); Hemoglobin 15.7 g/dL (14.0-18.0); Mean Corpuscular HGB CONC 34.8 g/dL (32.0-36.0); Mean Corpuscular Volume 94.7 fL (78.0-98.0); Mean Platelet Volume 7.1 fL (7.4-10.4); Platelet Count 105 thou/uL (130-400); RBC Distribution Width 14.6 % (11.5-14.5); Red Blood Cell (RBC) Count 4.77 mill/uL (4.70-6.10); White Blood Cell (WBC) Count 6.2 thou/uL (4.8-10.8)
[2022-04-07 20:03] LABS: ALT (SGPT) 27 U/L (8-55); AST (SGOT) 41 U/L (5-34); Albumin 4.4 g/dL (3.5-5.0); Alkaline Phosphatase 110 U/L (40-110); Anion Gap 14 mmol/L (10-20); BUN (Urea Nitrogen) 9 mg/dL (8.9-20.6); Bilirubin, Total 2.3 mg/dL (0.2-1.2); Calc. Creatinine Clearance 0 mL/min (70-130); Carbon Dioxide 24 mmol/L (22-29); Chloride 96 mmol/L (98-107); Estimated GFR 79; Globulin 3.5 g/dL (2.4-3.5); Glucose 325 mg/dL (70-105); Lipase 23 U/L (8-78); Potassium 3.4 mmol/L (3.5-5.1); Protein, Total 7.9 g/dL (6.0-8.3); Sodium 131 mmol/L (136-145)
[2022-04-07] MEDS ORDERED: Aspirin Chewable 81 MG TAB ONE (23:38)
[2022-04-08] MEDS ORDERED: Morphine 4 MG/ML VIAL ONE ×2 (00:28→05:17)
[2022-04-08] MEDS ORDERED: Nitroglycerin 0.4 MG TAB 1 EACH ONE ×2 (00:29→11:07)
[2022-04-08] MEDS ORDERED: Pantoprazole 40 MG VIAL ONE (00:29)
[2022-04-08 01:10] LABS: INR-International Normal Ratio 1.2; PTT 26.9 sec (22.9-36.1); Prothrombin Time 15.4 sec (12.0-14.7)
[2022-04-08] MEDS ORDERED: Ondansetron PF 4 MG/2 ML Vial ONE (02:21)
[2022-04-08 02:53] LABS: Troponin I 0.027 ng/mL (< 0.028)
[2022-04-08 04:45] LABS: SARS-CoV-2 NAA Rapid Test Not Detected (NotDetected)
[2022-04-08] MEDS: Morphine 4 MG/ML VIAL SLOW IVP PRN (05:21)
[2022-04-08 06:15] LABS: #Eosinphils 0.1 thou/uL (0.0-0.7); #Lymphocytes 1.8 thou/uL (1.20-3.40); #Monocytes 0.6 thou/uL (0.11-0.59); #Neutrophils 3.6 thou/uL (1.40-6.50); %Eosinophils 1.1 % (0.0-10.0); %Lymphocytes 30.3 % (21.0-51.0); %Monocytes 9.2 % (0.0-10.0); %Neutrophils 59.5 % (42.0-75.0); Hemoglobin 13.6 g/dL (14.0-18.0); Mean Corpuscular HGB CONC 33.9 g/dL (32.0-36.0); Mean Corpuscular Hemoglobin 32.4 pg (27.0-31.0); Mean Corpuscular Volume 95.6 fL (78.0-98.0); Mean Platelet Volume 7.7 fL (7.4-10.4); Platelet Count 90 thou/uL (130-400); RBC Distribution Width 14.3 % (11.5-14.5); White Blood Cell (WBC) Count 6.1 thou/uL (4.8-10.8)
[2022-04-08 06:16] LABS: Anion Gap 14 mmol/L (10-20); BUN (Urea Nitrogen) 11 mg/dL (8.9-20.6); Calc. Creatinine Clearance 0 mL/min (70-130); Calcium 9.3 mg/dL (7.8-10.44); Carbon Dioxide 24 mmol/L (22-29); Chloride 97 mmol/L (98-107); Estimated GFR 85; Glucose 252 mg/dL (70-105); Potassium 3.2 mmol/L (3.5-5.1); Sodium 132 mmol/L (136-145)
[2022-04-08 06:23] LABS: Troponin I Less than 0.010 ng/mL (< 0.028)
[2022-04-08] MEDS ORDERED: Ondansetron PF 4 MG/2 ML Vial IVP PRN (10:10)
[2022-04-08] MEDS ORDERED: Acetaminophen 325 MG TAB PO PRN (10:10)
[2022-04-08] MEDS ORDERED: traZODone HCl 50 MG TAB PO PRN (10:43)
[2022-04-08] MEDS ORDERED: SUMAtriptan Succinate 25 MG TAB PO PRN (10:43)
[2022-04-08] MEDS ORDERED: Nitroglycerin 0.4 MG TAB (25 Tab Bottle) SL PRN (10:43)
[2022-04-08] MEDS: Sodium Chloride 0.9% 1,000 ML IV SCH (11:12)
[2022-04-08 11:14] LABS: Magnesium 1.6 mg/dL (1.6-2.6)
[2022-04-08] MEDS: Potassium Chloride 20 MEQ in Premix Bag 1 BAG IVPB SCH ×2 (11:57→20:46)
[2022-04-08] MEDS ORDERED: Potassium Chloride 20 MEQ/100 ML PREMIX BAG ONE (12:24)
[2022-04-08] MEDS ORDERED: Magnesium 2 GM/50 ML(in water) 2 GM in Premix Bag 1 BAG IVPB SCH (16:45)
[2022-04-08] MEDS ORDERED: Octreotide Acetate 1,250 MCG in Sodium Chloride 0.9% 250 ML 250 ML IVPB SCH (17:00)
[2022-04-08] MEDS ORDERED: Octreotide Acetate 50 MCG/ML AMP SLOW IVP SCH (17:15)
[2022-04-08] MEDS: risperiDONE 1 MG TAB PO SCH (20:26)
[2022-04-08] MEDS: Metoprolol Tartrate 25 MG TAB PO SCH (20:29)
[2022-04-08] MEDS: Atorvastatin Calcium 40 MG TAB PO SCH (20:29)
[2022-04-08] MEDS: Bupropion 150 MG XL TAB PO SCH (20:29)
[2022-04-08] MEDS: Pantoprazole 40 MG VIAL IVP SCH (20:30)
[2022-04-08] MEDS ORDERED: Potassium Chloride 20 MEQ TAB PO SCH (20:45)
[2022-04-08] MEDS ORDERED: Non-Formulary Item 1 EACH (Risperidone [Risperidone] 2 MG Tablet) PO SCH (21:00)
[2022-04-08] MEDS ORDERED: Non-Formulary Item 1 EACH (Omeprazole [Omeprazole] 20 MG Tablet.Dr) PO SCH (21:00)
[2022-04-08] MEDS ORDERED: Non-Formulary Item 1 EACH (Lactulose 10 Gm/15ml Oral Sol 10 GM/15 ML Ml) PO SCH (21:00)
[2022-04-09] MEDS ORDERED: HumaLOG 300 UNITS/3 ML VIAL SC PRN (01:02)
[2022-04-09] MEDS ORDERED: Dextrose 5% in Water 1,000 ML IV PRN (01:02)
[2022-04-09] MEDS ORDERED: Dextrose 50% Abboject 50 ML SYRINGE SLOW IVP PRN (01:02)
[2022-04-09] MEDS ORDERED: Electrolyte Replacement Protocol 1 EACH FS SCH (01:15)
[2022-04-09] MEDS ORDERED: Magnesium 2 GM/50 ML(in water) 2 GM in Premix Bag 1 BAG IVPB SCH (01:15)
[2022-04-09 02:00] LABS: Magnesium 2.3 mg/dL (1.6-2.6)
[2022-04-09] MEDS ORDERED: Potassium Chloride 20 MEQ in Premix Bag 1 BAG IVPB SCH ×2 (02:00→09:30)
[2022-04-09 05:11] LABS: #Eosinphils 0.1 thou/uL (0.0-0.7); #Lymphocytes 1.6 thou/uL (1.20-3.40); #Monocytes 0.5 thou/uL (0.11-0.59); #Neutrophils 2.6 thou/uL (1.40-6.50); %Basophils 0.8 % (0.0-1.0); %Eosinophils 1.9 % (0.0-10.0); %Lymphocytes 33.3 % (21.0-51.0); %Neutrophils 54.1 % (42.0-75.0); Hemoglobin 12.9 g/dL (14.0-18.0); Mean Corpuscular HGB CONC 34.3 g/dL (32.0-36.0); Mean Corpuscular Hemoglobin 33.4 pg (27.0-31.0); Mean Corpuscular Volume 97.3 fL (78.0-98.0); Mean Platelet Volume 7.5 fL (7.4-10.4); Platelet Count 76 thou/uL (130-400); RBC Distribution Width 14.6 % (11.5-14.5); Red Blood Cell (RBC) Count 3.85 mill/uL (4.70-6.10); White Blood Cell (WBC) Count 4.7 thou/uL (4.8-10.8)
[2022-04-09 05:12] LABS: Anion Gap 12 mmol/L (10-20); BUN (Urea Nitrogen) 10 mg/dL (8.9-20.6); Calc. Creatinine Clearance 0 mL/min (70-130); Calcium 8.3 mg/dL (7.8-10.44); Carbon Dioxide 26 mmol/L (22-29); Chloride 101 mmol/L (98-107); Estimated GFR 103; Glucose 157 mg/dL (70-105); Potassium 3.3 mmol/L (3.5-5.1); Sodium 136 mmol/L (136-145)
[2022-04-09] MEDS: Sodium Chloride 0.9% 1,000 ML IV SCH (05:36)
[2022-04-09] MEDS ORDERED: Fentanyl 100 MCG/2 ML VIAL ONE (08:46)
[2022-04-09] MEDS ORDERED: PROPOFOL 200 MG/20 ML VIAL ONE (08:52)
[2022-04-09] MEDS ORDERED: FLU VACC QS2022-23(6MOS UP)/PF 60 MCG/0.5 ML SYRINGE IM ONE (09:00)
[2022-04-09] MEDS ORDERED: Aspirin Chewable 81 MG TAB PO SCH (09:00)
[2022-04-09] MEDS ORDERED: Thiamine 100 MG TAB PO SCH (10:00)
[2022-04-09] MEDS: Benztropine 1 MG TAB PO SCH (10:54)
[2022-04-09] MEDS: Empagliflozin 25 MG TAB PO SCH (10:55)
[2022-04-09] MEDS: Pantoprazole 40 MG VIAL IVP SCH ×2 (10:57→20:52)
[2022-04-09] MEDS: Lisinopril 2.5 MG TAB PO SCH (10:57)
[2022-04-09] MEDS: Metoprolol Tartrate 25 MG TAB PO SCH ×2 (10:57→20:52)
[2022-04-09] MEDS: risperiDONE 1 MG TAB PO SCH ×2 (10:58→20:53)
[2022-04-09] MEDS: Potassium Chloride 20 MEQ TAB PO SCH ×2 (12:32→15:51)
[2022-04-09 17:00] LABS: Potassium 3.7 mmol/L (3.5-5.1)
[2022-04-09] MEDS: Bupropion 150 MG XL TAB PO SCH (20:52)
[2022-04-09] MEDS: Atorvastatin Calcium 40 MG TAB PO SCH (20:52)
[2022-04-10 05:23] LABS: #Eosinphils 0.1 thou/uL (0.0-0.7); #Lymphocytes 1.5 thou/uL (1.20-3.40); #Monocytes 0.4 thou/uL (0.11-0.59); #Neutrophils 2.2 thou/uL (1.40-6.50); %Basophils 0.6 % (0.0-1.0); %Eosinophils 1.5 % (0.0-10.0); %Lymphocytes 34.6 % (21.0-51.0); %Neutrophils 53.3 % (42.0-75.0); Hemoglobin 12.2 g/dL (14.0-18.0); Mean Corpuscular HGB CONC 33.8 g/dL (32.0-36.0); Mean Corpuscular Hemoglobin 32.9 pg (27.0-31.0); Mean Corpuscular Volume 97.5 fL (78.0-98.0); Mean Platelet Volume 7.3 fL (7.4-10.4); Platelet Count 74 thou/uL (130-400); RBC Distribution Width 14.5 % (11.5-14.5); Red Blood Cell (RBC) Count 3.71 mill/uL (4.70-6.10); White Blood Cell (WBC) Count 4.2 thou/uL (4.8-10.8)
[2022-04-10 05:45] LABS: INR-International Normal Ratio 1.1; Prothrombin Time 14.8 sec (12.0-14.7)
[2022-04-10 06:06] LABS: Anion Gap 13 mmol/L (10-20); BUN (Urea Nitrogen) 16 mg/dL (8.9-20.6); Calc. Creatinine Clearance 166 mL/min (70-130); Calcium 8.7 mg/dL (7.8-10.44); Carbon Dioxide 22 mmol/L (22-29); Chloride 106 mmol/L (98-107); Estimated GFR 105; Glucose 252 mg/dL (70-105); Potassium 3.6 mmol/L (3.5-5.1); Sodium 137 mmol/L (136-145)
[2022-04-10 06:07] LABS: ALT (SGPT) 18 U/L (8-55); AST (SGOT) 25 U/L (5-34); Albumin 3.5 g/dL (3.5-5.0); Alkaline Phosphatase 74 U/L (40-110); Bilirubin, Direct 0.5 mg/dL (0.1-0.3); Bilirubin, Total 1.1 mg/dL (0.2-1.2); Protein, Total 6.1 g/dL (6.0-8.3)
[2022-04-10] MEDS: Pantoprazole 40 MG VIAL IVP SCH ×2 (07:56→20:27)
[2022-04-10] MEDS: Lisinopril 2.5 MG TAB PO SCH (07:56)
[2022-04-10] MEDS: Aspirin 81 mg Enteric Coated Tablet PO SCH (07:56)
[2022-04-10] MEDS: Benztropine 1 MG TAB PO SCH (07:57)
[2022-04-10] MEDS: Clopidogrel Bisulfate 75 MG TAB PO SCH (07:57)
[2022-04-10] MEDS: Empagliflozin 25 MG TAB PO SCH (07:58)
[2022-04-10] MEDS: risperiDONE 1 MG TAB PO SCH ×2 (07:59→20:24)
[2022-04-10] MEDS: Metoprolol Tartrate 25 MG TAB PO SCH ×2 (08:01→20:24)
[2022-04-10] MEDS: Thiamine 100 MG TAB PO SCH (08:03)
[2022-04-10] MEDS: Atorvastatin Calcium 40 MG TAB PO SCH (20:26)
[2022-04-10] MEDS: Bupropion 150 MG XL TAB PO SCH (20:26)
[2022-04-10] MEDS: Morphine 4 MG/ML VIAL SLOW IVP PRN (20:35)
[2022-04-11 06:21] LABS: #Eosinphils 0.1 thou/uL (0.0-0.7); #Lymphocytes 1.4 thou/uL (1.20-3.40); #Monocytes 0.4 thou/uL (0.11-0.59); #Neutrophils 2.2 thou/uL (1.40-6.50); %Basophils 0.6 % (0.0-1.0); %Lymphocytes 34.6 % (21.0-51.0); %Monocytes 9.7 % (0.0-10.0); %Neutrophils 53.1 % (42.0-75.0); Hemoglobin 12.5 g/dL (14.0-18.0); Mean Corpuscular HGB CONC 33.5 g/dL (32.0-36.0); Mean Corpuscular Hemoglobin 33.1 pg (27.0-31.0); Mean Corpuscular Volume 98.8 fL (78.0-98.0); Mean Platelet Volume 7.8 fL (7.4-10.4); Platelet Count 76 thou/uL (130-400); RBC Distribution Width 14.5 % (11.5-14.5); Red Blood Cell (RBC) Count 3.78 mill/uL (4.70-6.10); White Blood Cell (WBC) Count 4.1 thou/uL (4.8-10.8)
[2022-04-11 06:33] LABS: Anion Gap 13 mmol/L (10-20); BUN (Urea Nitrogen) 10 mg/dL (8.9-20.6); Calc. Creatinine Clearance 155 mL/min (70-130); Calcium 8.8 mg/dL (7.8-10.44); Carbon Dioxide 21 mmol/L (22-29); Chloride 106 mmol/L (98-107); Estimated GFR 98; Glucose 296 mg/dL (70-105); Potassium 3.9 mmol/L (3.5-5.1); Sodium 136 mmol/L (136-145)
[2022-04-11 09:16] LABS: ALT (SGPT) 14 U/L (8-55); AST (SGOT) 21 U/L (5-34); Albumin 3.7 g/dL (3.5-5.0); Alkaline Phosphatase 77 U/L (40-110); Bilirubin, Direct 0.4 mg/dL (0.1-0.3); Bilirubin, Total 0.8 mg/dL (0.2-1.2); Protein, Total 6.6 g/dL (6.0-8.3)
[2022-04-11] MEDS: Lisinopril 2.5 MG TAB PO SCH (12:28)
[2022-04-11] MEDS: Empagliflozin 25 MG TAB PO SCH (12:28)
[2022-04-11] MEDS: Pantoprazole 40 MG VIAL IVP SCH ×2 (12:29→21:17)
[2022-04-11] MEDS: Clopidogrel Bisulfate 75 MG TAB PO SCH (12:29)
[2022-04-11] MEDS: Metoprolol Tartrate 25 MG TAB PO SCH ×2 (12:29→21:16)
[2022-04-11] MEDS: Thiamine 100 MG TAB PO SCH (12:29)
[2022-04-11] MEDS: Aspirin 81 mg Enteric Coated Tablet PO SCH (12:29)
[2022-04-11] MEDS: risperiDONE 1 MG TAB PO SCH ×2 (12:35→21:18)
[2022-04-11] MEDS: Benztropine 1 MG TAB PO SCH (12:35)
[2022-04-11] MEDS: Atorvastatin Calcium 40 MG TAB PO SCH (21:15)
[2022-04-11] MEDS: Bupropion 150 MG XL TAB PO SCH (21:16)
[2022-04-12 06:01] LABS: Anion Gap 14 mmol/L (10-20); BUN (Urea Nitrogen) 11 mg/dL (8.9-20.6); Calc. Creatinine Clearance 143 mL/min (70-130); Carbon Dioxide 20 mmol/L (22-29); Chloride 105 mmol/L (98-107); Estimated GFR 89; Glucose 154 mg/dL (70-105); Potassium 3.5 mmol/L (3.5-5.1); Sodium 135 mmol/L (136-145)
[2022-04-12 06:02] LABS: #Basophils 0.1 thou/uL (0.0-0.2); #Eosinphils 0.1 thou/uL (0.0-0.7); #Lymphocytes 1.6 thou/uL (1.20-3.40); #Monocytes 0.5 thou/uL (0.11-0.59); #Neutrophils 2.8 thou/uL (1.40-6.50); %Basophils 1.1 % (0.0-1.0); %Eosinophils 1.3 % (0.0-10.0); %Lymphocytes 32.1 % (21.0-51.0); %Monocytes 10.2 % (0.0-10.0); %Neutrophils 55.2 % (42.0-75.0); Hemoglobin 13.1 g/dL (14.0-18.0); Mean Corpuscular HGB CONC 33.5 g/dL (32.0-36.0); Mean Corpuscular Volume 98.4 fL (78.0-98.0); Mean Platelet Volume 7.6 fL (7.4-10.4); Platelet Count 85 thou/uL (130-400); RBC Distribution Width 14.8 % (11.5-14.5); Red Blood Cell (RBC) Count 3.98 mill/uL (4.70-6.10); White Blood Cell (WBC) Count 5.1 thou/uL (4.8-10.8)
[2022-04-12] MEDS ORDERED: Lactated Ringer's 1,000 ML IV SCH (08:00)
[2022-04-12] MEDS ORDERED: Potassium Chloride 20 MEQ TAB PO SCH (08:00)
[2022-04-12] MEDS: Metoprolol Tartrate 25 MG TAB PO SCH ×2 (08:21→21:48)
[2022-04-12] MEDS: Pantoprazole 40 MG VIAL IVP SCH (08:21)
[2022-04-12] MEDS ORDERED: Clopidogrel Bisulfate 75 MG TAB PO SCH (09:00)
[2022-04-12] MEDS ORDERED: fentaNYL Citrate/PF 100 MCG/2 ML SYRINGE ONE ×2 (12:22→13:56)
[2022-04-12] MEDS ORDERED: Albumin 5% 500 ML ONE (12:37)
[2022-04-12] MEDS ORDERED: Levofloxacin 500 mg/D5W 100 ml Premix Bag ONE (12:41)
[2022-04-12] MEDS ORDERED: PROPOFOL 200 MG/20 ML VIAL ONE (12:53)
[2022-04-12] MEDS ORDERED: Ondansetron PF 4 MG/2 ML Vial ONE (12:53)
[2022-04-12] MEDS ORDERED: Dexamethasone 20 MG/5 ML VIAL ONE (12:53)
[2022-04-12] MEDS ORDERED: Glycopyrrolate 0.2 MG/ML 5 ML SYRINGE ONE (12:53)
[2022-04-12] MEDS ORDERED: Rocuronium Bromide 10 MG/ML (10ML VIAL) ONE (12:53)
[2022-04-12] MEDS ORDERED: NEOSTIGMINE 3 MG/3 ML SYR 3 MG/3 ML SYRINGE ONE (12:53)
[2022-04-12] MEDS ORDERED: Succinylcholine 200 MG/10 ml SYRINGE FS ONE (12:53)
[2022-04-12] MEDS ORDERED: SUGAMMADEX SODIUM 200 MG/2 ML VIAL ONE (13:34)
[2022-04-12] MEDS ORDERED: Promethazine HCl 25 MG/ML VIAL IM PRN ×2 (13:47)
[2022-04-12] MEDS ORDERED: Promethazine HCl 25 MG/ML VIAL IVPB PRN ×2 (13:47)
[2022-04-12] MEDS ORDERED: Ketorolac Tromethamine 30 MG/ML VIAL IVP PRN ×2 (13:47)
[2022-04-12] MEDS ORDERED: HYDROmorphone 2 MG/ML VIAL SLOW IVP PRN (13:47)
[2022-04-12] MEDS ORDERED: Ondansetron HCl/PF 4 MG/2 ML Vial IVP PRN ×2 (13:47)
[2022-04-12] MEDS ORDERED: Simethicone 40 MG/0.6 ML Drop 30 ML BOT PO PRN (16:03)
[2022-04-12] MEDS ORDERED: Gabapentin 100 MG CAP PO SCH (16:30)
[2022-04-12] MEDS: Lisinopril 2.5 MG TAB PO SCH (17:02)
[2022-04-12] MEDS: traMADol HCl 50 MG TAB PO PRN ×2 (17:03→21:49)
[2022-04-12] MEDS: Thiamine 100 MG TAB PO SCH (17:04)
[2022-04-12] MEDS: risperiDONE 1 MG TAB PO SCH ×2 (17:04→21:48)
[2022-04-12] MEDS: Benztropine 1 MG TAB PO SCH (17:07)
[2022-04-12] MEDS: Empagliflozin 25 MG TAB PO SCH (17:09)
[2022-04-12] MEDS ORDERED: Simethicone Chewable 80 MG TAB PO PRN (17:20)
[2022-04-12] MEDS: Bupropion 150 MG XL TAB PO SCH (21:47)
[2022-04-12] MEDS: Atorvastatin Calcium 40 MG TAB PO SCH (21:47)
[2022-04-12] MEDS ORDERED: Acetaminophen 500 MG TAB PO PRN (21:59)
[2022-04-12] MEDS ORDERED: Morphine 2 MG/ML VIAL SLOW IVP PRN (21:59)
[2022-04-12] MEDS: HYDROcodone/Acetaminophen 5/325 mg Tablet PO PRN (22:17)
[2022-04-12] MEDS: HumaLOG 300 UNITS/3 ML VIAL SC PRN (22:18)
[2022-04-13] MEDS: Morphine 4 MG/ML VIAL SLOW IVP PRN ×2 (00:07→08:12)
[2022-04-13 05:45] LABS: #Lymphocytes 0.5 thou/uL (1.20-3.40); #Monocytes 0.6 thou/uL (0.11-0.59); #Neutrophils 4.2 thou/uL (1.40-6.50); %Eosinophils 0.1 % (0.0-10.0); %Lymphocytes 9.8 % (21.0-51.0); %Monocytes 10.8 % (0.0-10.0); %Neutrophils 79.3 % (42.0-75.0); Hemoglobin 12.2 g/dL (14.0-18.0); Mean Corpuscular HGB CONC 33.8 g/dL (32.0-36.0); Mean Corpuscular Hemoglobin 33.1 pg (27.0-31.0); Mean Corpuscular Volume 97.8 fL (78.0-98.0); Mean Platelet Volume 8.3 fL (7.4-10.4); Platelet Count 82 thou/uL (130-400); RBC Distribution Width 14.7 % (11.5-14.5); Red Blood Cell (RBC) Count 3.68 mill/uL (4.70-6.10); White Blood Cell (WBC) Count 5.2 thou/uL (4.8-10.8)
[2022-04-13 06:12] LABS: Phosphorus 3.7 mg/dL (2.3-4.7)
[2022-04-13 06:14] LABS: ALT (SGPT) 17 U/L (8-55); AST (SGOT) 33 U/L (5-34); Albumin 4.1 g/dL (3.5-5.0); Alkaline Phosphatase 66 U/L (40-110); Anion Gap 13 mmol/L (10-20); BUN (Urea Nitrogen) 16 mg/dL (8.9-20.6); Bilirubin, Total 1.1 mg/dL (0.2-1.2); Calc. Creatinine Clearance 123 mL/min (70-130); Calcium 9.1 mg/dL (7.8-10.44); Carbon Dioxide 21 mmol/L (22-29); Chloride 103 mmol/L (98-107); Estimated GFR 74; Globulin 2.8 g/dL (2.4-3.5); Glucose 362 mg/dL (70-105); Magnesium 1.8 mg/dL (1.6-2.6); Protein, Total 6.9 g/dL (6.0-8.3); Sodium 133 mmol/L (136-145)
[2022-04-13] MEDS ORDERED: Magnesium 2 GM/50 ML(in water) 2 GM in Premix Bag 1 BAG IVPB SCH (08:00)
[2022-04-13] MEDS: Polyethylene Glycol 3350 17 GM Packet PO SCH (08:03)
[2022-04-13] MEDS: risperiDONE 1 MG TAB PO SCH ×2 (08:03→21:13)
[2022-04-13] MEDS: Aspirin 81 mg Enteric Coated Tablet PO SCH (08:04)
[2022-04-13] MEDS: Benztropine 1 MG TAB PO SCH (08:04)
[2022-04-13] MEDS: Lisinopril 2.5 MG TAB PO SCH (08:04)
[2022-04-13] MEDS: Gabapentin 100 MG CAP PO SCH (08:04)
[2022-04-13] MEDS: Empagliflozin 25 MG TAB PO SCH (08:04)
[2022-04-13] MEDS: Metoprolol Tartrate 25 MG TAB PO SCH ×2 (08:05→21:14)
[2022-04-13] MEDS: Thiamine 100 MG TAB PO SCH (08:05)
[2022-04-13] MEDS ORDERED: Clopidogrel Bisulfate 75 MG TAB PO SCH (09:00)
[2022-04-13] MEDS ORDERED: Methocarbamol 500 MG TAB PO SCH ×2 (09:36→09:45)
[2022-04-13] MEDS ORDERED: Morphine 4 MG/ML VIAL SLOW IVP SCH (09:45)
[2022-04-13] MEDS ORDERED: Senokot S 8.6-50 MG TAB PO SCH (10:00)
[2022-04-13] MEDS: HumaLOG 300 UNITS/3 ML VIAL SC SCH ×2 (12:46→18:05)
[2022-04-13] MEDS: Insulin Glargine 30 UNITS/0.3 ML VIAL SC SCH (12:47)
[2022-04-13] MEDS: HYDROcodone/Acetaminophen 5/325 mg Tablet PO PRN ×2 (12:50→21:14)
[2022-04-13] MEDS: Methocarbamol 500 MG TAB PO SCH ×2 (15:08→21:14)
[2022-04-13] MEDS ORDERED: traMADol HCl 50 MG TAB PO SCH ×2 (17:30→23:15)
[2022-04-13] MEDS: Bupropion 150 MG XL TAB PO SCH (21:13)
[2022-04-13] MEDS: Atorvastatin Calcium 40 MG TAB PO SCH (21:13)
[2022-04-13] MEDS: Senokot S 8.6-50 MG TAB PO SCH (21:13)
[2022-04-13] MEDS: HumaLOG 300 UNITS/3 ML VIAL SC PRN (21:20)
[2022-04-14] MEDS: HYDROcodone/Acetaminophen 5/325 mg Tablet PO PRN ×3 (02:07→09:15)
[2022-04-14] MEDS: Insulin Glargine 30 UNITS/0.3 ML VIAL SC SCH (07:27)
[2022-04-14] MEDS ORDERED: Milk Of Magnesia 30 ML UDCUP PO SCH (07:30)
[2022-04-14] MEDS: HumaLOG 300 UNITS/3 ML VIAL SC SCH ×2 (07:58→11:42)
[2022-04-14] MEDS: Polyethylene Glycol 3350 17 GM Packet PO SCH (08:00)
[2022-04-14] MEDS: Metoprolol Tartrate 25 MG TAB PO SCH (08:00)
[2022-04-14] MEDS: Thiamine 100 MG TAB PO SCH (08:02)
[2022-04-14] MEDS: Methocarbamol 500 MG TAB PO SCH (08:02)
[2022-04-14] MEDS: Senokot S 8.6-50 MG TAB PO SCH (08:03)
[2022-04-14] MEDS: Lisinopril 2.5 MG TAB PO SCH (08:03)
[2022-04-14] MEDS: Gabapentin 100 MG CAP PO SCH (08:03)
[2022-04-14] MEDS: risperiDONE 1 MG TAB PO SCH (08:04)
[2022-04-14] MEDS: Benztropine 1 MG TAB PO SCH (08:04)
[2022-04-14] MEDS: Empagliflozin 25 MG TAB PO SCH (08:04)
[2022-04-14] MEDS: Aspirin 81 mg Enteric Coated Tablet PO SCH (08:04)
[2022-04-14 12:30] VITALS: BP 115/75; TEMP 98
[2022-04-15] MEDS ORDERED: Non-Formulary Item 1 EACH (Semaglutide [Ozempic] 0.25 MG/0.2 ML Pen.Injctr) SQ SCH (09:00)
== END 2022-04-14 12:50 | disposition home or self-care (01) | DRG 418 ==
LOC: ERS 19:12 → ERHOLD 04-08 02:17 → 2SW 04-08 16:59 → OBSVTOIN 04-10 10:34 → SURG B 04-10 14:31
PROVIDERS: ADMIT Student in an Organized Health Care Education/Training Program; ATTEND Internal Medicine
PROC: 0FT44ZZ Resection of Gallbladder, Percutaneous Endoscopic Approach (ICD-10-PCS; principal; 2022-04-12)
PROC: 0DB78ZX Excision of Stomach, Pylorus, Via Natural or Artificial Opening Endoscopic, Diagnostic (ICD-10-PCS; 2022-04-12)
DX: K80.12 Calculus of gallbladder with acute and chronic cholecystitis without obstruction (principal); I85.10 Secondary esophageal varices without bleeding; K76.6 Portal hypertension; R04.2 Hemoptysis; K70.30 Alcoholic cirrhosis of liver without ascites; K29.70 Gastritis, unspecified, without bleeding; I83.90 Asymptomatic varicose veins of unspecified lower extremity; K31.89 Other diseases of stomach and duodenum; I10 Essential (primary) hypertension; E11.9 Type 2 diabetes mellitus without complications; F43.10 Post-traumatic stress disorder, unspecified; F17.210 Nicotine dependence, cigarettes, uncomplicated; F10.20 Alcohol dependence, uncomplicated; G47.33 Obstructive sleep apnea (adult) (pediatric); D69.6 Thrombocytopenia, unspecified; I25.10 Atherosclerotic heart disease of native coronary artery without angina pectoris; Z95.5 Presence of coronary angioplasty implant and graft; I25.2 Old myocardial infarction; F20.9 Schizophrenia, unspecified; F31.9 Bipolar disorder, unspecified; E87.6 Hypokalemia; E78.5 Hyperlipidemia, unspecified; Z87.820 Personal history of traumatic brain injury; K59.00 Constipation, unspecified; Z20.822 Contact with and (suspected) exposure to COVID-19; R07.9 Chest pain, unspecified
CPT/HCPCS: 36415; 36416; 71045; 71250; 71275; 76705; 78227; 80048; 80053; 80076; 81003; 82550; 83605; 83690; 83735; 83880; 84100; 84484; 85025; 85610; 85730; 86850; 86900; 86901; 88304; 88305; 88313; 88342; 93005; 94640; 94760; 96374; 96375; 96376; A9537; C1713; C9113; G0378; J1100; J1815; J1956; J2270; J2354; J2405; J2704; J3010; J3475; J3480; J7050; J7120; J7620; P9045; Q9967; U0002

== ENCOUNTER 2022-04-17 11:37 | Emergency (ER) | payer OTHER ==
[2022-04-17 12:08] LABS: Bilirubin Negative (Negative); Blood, Urine Negative (Negative); Clarity Clear (Clear); Glucose, Urine (Dipstick) Greater than 1000 mg/dL (Negative); Ketone, Urine Negative (Negative); Leukocyte Negative Leu/uL (Negative); Nitrite Negative (Negative); Protein, Urine (Dipstick) Negative (Neg-Trace); Specific Gravity, Urine 1.045 (1.002-1.036); Urobilinogen Normal mg/dL (Less than 2)
[2022-04-17 12:22] LABS: #Basophils 0.1 thou/uL (0.0-0.2); #Eosinphils 0.1 thou/uL (0.0-0.7); #Monocytes 0.7 thou/uL (0.11-0.59); #Neutrophils 5.8 thou/uL (1.40-6.50); %Eosinophils 1.5 % (0.0-10.0); %Lymphocytes 22.6 % (21.0-51.0); %Monocytes 8.5 % (0.0-10.0); %Neutrophils 66.4 % (42.0-75.0); Mean Corpuscular Hemoglobin 31.7 pg (27.0-31.0); Mean Corpuscular Volume 96.1 fL (78.0-98.0); Mean Platelet Volume 7.4 fL (7.4-10.4); Platelet Count 234 thou/uL (130-400); RBC Distribution Width 14.8 % (11.5-14.5); Red Blood Cell (RBC) Count 4.74 mill/uL (4.70-6.10); White Blood Cell (WBC) Count 8.7 thou/uL (4.8-10.8)
[2022-04-17 12:40] LABS: ALT (SGPT) 46 U/L (8-55); AST (SGOT) 61 U/L (5-34); Albumin 4.4 g/dL (3.5-5.0); Alkaline Phosphatase 95 U/L (40-110); Anion Gap 14 mmol/L (10-20); BUN (Urea Nitrogen) 18 mg/dL (8.9-20.6); Bilirubin, Total 1.4 mg/dL (0.2-1.2); Calc. Creatinine Clearance 0 mL/min (70-130); Carbon Dioxide 22 mmol/L (22-29); Chloride 102 mmol/L (98-107); Estimated GFR 106; Globulin 3.4 g/dL (2.4-3.5); Glucose 151 mg/dL (70-105); Lipase 17 U/L (8-78); Potassium 3.6 mmol/L (3.5-5.1); Protein, Total 7.8 g/dL (6.0-8.3); Sodium 134 mmol/L (136-145)
[2022-04-17] MEDS ORDERED: Morphine 4 MG/ML VIAL ONE (13:12)
[2022-04-17] MEDS ORDERED: Ondansetron PF 4 MG/2 ML Vial ONE (13:12)
[2022-04-17] MEDS ORDERED: Iopamidol-370 76% 500 ML 1 ML ONE (15:30)
== END 2022-04-17 16:15 | disposition home or self-care (01) ==
LOC: ERS 11:37
DX: G89.18 Other acute postprocedural pain (principal); R10.30 Lower abdominal pain, unspecified; E11.9 Type 2 diabetes mellitus without complications; Z87.891 Personal history of nicotine dependence; Z79.4 Long term (current) use of insulin
CPT/HCPCS: 36415; 74177; 80053; 81003; 83690; 85025; 96374; 96375; J2270; J2405; Q9967

== ENCOUNTER 2022-05-19 07:16 | Inpatient (IN) | payer OTHER ==
[2022-05-19] MEDS ORDERED: Ondansetron PF 4 MG/2 ML Vial ONE ×2 (07:59→11:16)
[2022-05-19] MEDS ORDERED: Ketorolac Tromethamine 30 MG/ML VIAL ONE (07:59)
[2022-05-19] MEDS ORDERED: Morphine 4 MG/ML VIAL ONE (07:59)
[2022-05-19 08:12] LABS: Bacteria/HPF None Seen HPF (None Seen); Bilirubin 1+ (Negative); Blood, Urine Negative (Negative); Clarity Clear (Clear); Glucose, Urine (Dipstick) 150 mg/dL (Negative); Ketone, Urine 40 mg/dL (Negative); Leukocyte Negative Leu/uL (Negative); Nitrite Negative (Negative); Protein, Urine (Dipstick) 70 mg/dL (Neg-Trace); RBC/HPF 0-3 HPF (0-3); Specific Gravity, Urine 1.023 (1.002-1.036); Squamous Epithelial 0-3 HPF (0-3); Urobilinogen Greater than 12 mg/dL (Less than 2); WBC/HPF 0-3 HPF (0-3)
[2022-05-19 08:36] LABS: #Basophils 0.1 thou/uL (0.0-0.2); #Lymphocytes 1.1 thou/uL (1.20-3.40); #Monocytes 0.3 thou/uL (0.11-0.59); %Basophils 1.6 % (0.0-1.0); %Eosinophils 0.4 % (0.0-10.0); %Lymphocytes 33.3 % (21.0-51.0); %Monocytes 7.4 % (0.0-10.0); %Neutrophils 57.3 % (42.0-75.0); Hemoglobin 15.1 g/dL (14.0-18.0); Mean Corpuscular HGB CONC 33.8 g/dL (32.0-36.0); Mean Corpuscular Hemoglobin 32.6 pg (27.0-31.0); Mean Corpuscular Volume 96.4 fl (78.0-98.0); Mean Platelet Volume 7.8 fL (7.4-10.4); Platelet Count 58 10x3/uL (130-400); RBC Distribution Width 16.3 % (11.5-14.5); Red Blood Cell (RBC) Count 4.63 mill/uL (4.70-6.10); White Blood Cell (WBC) Count 3.4 10x3/uL (4.8-10.8)
[2022-05-19 08:43] LABS: ALT (SGPT) 31 U/L (8-55); AST (SGOT) 94 U/L (5-34); Albumin 4.1 g/dL (3.5-5.0); Alkaline Phosphatase 128 U/L (40-110); Anion Gap 20 mmol/L (10-20); BUN (Urea Nitrogen) 9 mg/dL (8.9-20.6); Bilirubin, Total 2.6 mg/dL (0.2-1.2); Calc. Creatinine Clearance 0 mL/min (70-130); Calcium 8.5 mg/dL (7.8-10.44); Carbon Dioxide 22 mmol/L (22-29); Chloride 98 mmol/L (98-107); Estimated GFR 107; Globulin 3.1 g/dL (2.4-3.5); Glucose 171 mg/dL (70-105); Lipase 35 U/L (8-78); Magnesium 1.5 mg/dL (1.6-2.6); Potassium 2.9 mmol/L (3.5-5.1); Protein, Total 7.2 g/dL (6.0-8.3); Sodium 137 mmol/L (136-145)
[2022-05-19] MEDS ORDERED: Midazolam HCl 2 mg/2 ml Vial ONE (09:08)
[2022-05-19] MEDS ORDERED: Enoxaparin Sodium 30 MG/0.3 ML SYRINGE ONE (09:16)
[2022-05-19] MEDS ORDERED: Enoxaparin Sodium 80 MG/0.8 ML SYRINGE ONE (09:16)
[2022-05-19] MEDS ORDERED: Lorazepam 1 MG TAB PO PRN (09:45)
[2022-05-19] MEDS ORDERED: chlordiazePOXIDE HCl 25 MG CAP PO SCH (09:45)
[2022-05-19] MEDS ORDERED: Multivitamins, Adult 10 ML, Thiamine HCl 100 MG, Folic Acid 1 MG in Dextrose 5 %-0.45 %... IV SCH (09:45)
[2022-05-19] MEDS ORDERED: Lorazepam 2 MG/ML VIAL IM PRN (09:45)
[2022-05-19] MEDS ORDERED: Electrolyte Replacement Protocol 1 EACH FS SCH (09:45)
[2022-05-19] MEDS ORDERED: Ondansetron ODT 4 MG TAB PO PRN (09:45)
[2022-05-19] MEDS ORDERED: Octreotide Acetate 1,250 MCG in Sodium Chloride 0.9% 250 ML 250 ML IVPB SCH (10:00)
[2022-05-19] MEDS ORDERED: Magnesium 2 GM/50 ML(in water) 2 GM in Premix Bag 1 BAG IVPB SCH (10:00)
[2022-05-19] MEDS ORDERED: Potassium Chloride 20 MEQ TAB PO SCH (10:30)
[2022-05-19 10:53] LABS: Magnesium 1.7 mg/dL (1.6-2.6); Phosphorus 2.5 mg/dL (2.3-4.7)
[2022-05-19 11:01] LABS: Troponin I 0.013 ng/mL (< 0.028)
[2022-05-19] MEDS ORDERED: LORazepam 2 MG/ML SYR.(CARPUJECT) ONE (11:16)
[2022-05-19 11:18] LABS: INR-International Normal Ratio 1.2; Prothrombin Time 15.5 sec (12.0-14.7)
[2022-05-19 11:19] LABS: PTT 27.4 sec (22.9-36.1)
[2022-05-19] MEDS ORDERED: Promethazine HCl 25 MG in Sodium Chloride 0.9% 50 ML IVPB PRN (11:21)
[2022-05-19] MEDS ORDERED: Promethazine HCl 25 MG in Sodium Chloride 0.9% 50 ML IVPB SCH (11:30)
[2022-05-19 12:13] LABS: Amphetamine Not Detected (NotDetected); Barbiturates Screen Not Detected (NotDetected); Benzodiazepine Screen Not Detected (NotDetected); Cocaine Metabolite Screen Not Detected (NotDetected); Methadone Not Detected (NotDetected); Methamphetamine Not Detected (NotDetected); Opiate Screen Not Detected (NotDetected); Oxycodone Screen Not Detected (NotDetected); Phencyclidine (PCP) Not Detected (NotDetected); THC/Cannabinoid Screen Not Detected (NotDetected); Tricyclic Screen Not Detected (NotDetected)
[2022-05-19] MEDS ORDERED: Pantoprazole 40 MG VIAL IVP SCH (12:30)
[2022-05-19 12:36] VITALS: BMI 31.4
[2022-05-19] MEDS: Lorazepam 1 MG TAB PO SCH ×3 (12:41→22:08)
[2022-05-19] MEDS ORDERED: Enoxaparin Sodium 30 MG/0.3 ML SYRINGE SC SCH (12:45)
[2022-05-19] MEDS ORDERED: Enoxaparin Sodium 80 MG/0.8 ML SYRINGE SC SCH (12:45)
[2022-05-19] MEDS: Potassium Chloride 20 MEQ in Premix Bag 1 BAG IVPB SCH ×2 (13:05→15:29)
[2022-05-19] MEDS: Sodium Chloride 0.9% 1,000 ML IV SCH ×2 (13:05→21:04)
[2022-05-19 14:07] LABS: #Lymphocytes 1.3 thou/uL (1.20-3.40); #Monocytes 0.3 thou/uL (0.11-0.59); #Neutrophils 2.3 thou/uL (1.40-6.50); %Basophils 0.9 % (0.0-1.0); %Eosinophils 0.5 % (0.0-10.0); %Lymphocytes 34.3 % (21.0-51.0); %Monocytes 6.7 % (0.0-10.0); %Neutrophils 57.7 % (42.0-75.0); Hemoglobin 13.8 g/dL (14.0-18.0); Mean Corpuscular HGB CONC 33.4 g/dL (32.0-36.0); Mean Corpuscular Hemoglobin 32.7 pg (27.0-31.0); Mean Corpuscular Volume 97.8 fl (78.0-98.0); Mean Platelet Volume 7.6 fL (7.4-10.4); Platelet Count 50 10x3/uL (130-400); RBC Distribution Width 16.4 % (11.5-14.5); Red Blood Cell (RBC) Count 4.23 mill/uL (4.70-6.10); White Blood Cell (WBC) Count 3.9 10x3/uL (4.8-10.8)
[2022-05-19 15:04] LABS: Troponin I 0.027 ng/mL (< 0.028)
[2022-05-19] MEDS ORDERED: Famotidine/PF 20 mg/2ml Vial SLOW IVP SCH (21:00)
[2022-05-19] MEDS: Pantoprazole 40 MG VIAL IVP SCH (21:06)
[2022-05-19 22:24] LABS: #Monocytes 0.2 thou/uL (0.11-0.59); #Neutrophils 1.6 thou/uL (1.40-6.50); %Basophils 1.1 % (0.0-1.0); %Eosinophils 1.1 % (0.0-10.0); %Lymphocytes 35.8 % (21.0-51.0); %Monocytes 8.1 % (0.0-10.0); %Neutrophils 53.8 % (42.0-75.0); Hemoglobin 13.5 g/dL (14.0-18.0); Mean Corpuscular HGB CONC 34.2 g/dL (32.0-36.0); Mean Corpuscular Hemoglobin 33.7 pg (27.0-31.0); Mean Corpuscular Volume 98.5 fl (78.0-98.0); Mean Platelet Volume 7.5 fL (7.4-10.4); Platelet Count 44 10x3/uL (130-400); RBC Distribution Width 16.1 % (11.5-14.5); Red Blood Cell (RBC) Count 4.01 mill/uL (4.70-6.10); White Blood Cell (WBC) Count 2.9 10x3/uL (4.8-10.8)
[2022-05-20] MEDS: Lorazepam 1 MG TAB PO SCH ×4 (04:01→23:47)
[2022-05-20] MEDS ORDERED: Ibuprofen 600 MG TAB PO SCH (05:00)
[2022-05-20 07:10] LABS: #Basophils 0.1 thou/uL (0.0-0.2); #Eosinphils 0.1 thou/uL (0.0-0.7); #Monocytes 0.2 thou/uL (0.11-0.59); #Neutrophils 1.6 thou/uL (1.40-6.50); %Basophils 1.9 % (0.0-1.0); %Eosinophils 1.9 % (0.0-10.0); %Lymphocytes 33.2 % (21.0-51.0); %Monocytes 7.5 % (0.0-10.0); %Neutrophils 55.5 % (42.0-75.0); Hemoglobin 13.9 g/dL (14.0-18.0); Mean Corpuscular HGB CONC 34.3 g/dL (32.0-36.0); Mean Corpuscular Hemoglobin 33.8 pg (27.0-31.0); Mean Corpuscular Volume 98.6 fl (78.0-98.0); Mean Platelet Volume 7.5 fL (7.4-10.4); Platelet Count 46 10x3/uL (130-400); RBC Distribution Width 15.9 % (11.5-14.5); Red Blood Cell (RBC) Count 4.11 mill/uL (4.70-6.10); White Blood Cell (WBC) Count 2.9 10x3/uL (4.8-10.8)
[2022-05-20 07:21] LABS: ALT (SGPT) 23 U/L (8-55); AST (SGOT) 62 U/L (5-34); Albumin 3.4 g/dL (3.5-5.0); Alkaline Phosphatase 101 U/L (40-110); Anion Gap 10 mmol/L (10-20); BUN (Urea Nitrogen) 10 mg/dL (8.9-20.6); Bilirubin, Total 3.5 mg/dL (0.2-1.2); Calc. Creatinine Clearance 167 mL/min (70-130); Calcium 8.1 mg/dL (7.8-10.44); Carbon Dioxide 28 mmol/L (22-29); Chloride 101 mmol/L (98-107); Estimated GFR 107; Globulin 2.7 g/dL (2.4-3.5); Glucose 213 mg/dL (70-105); Lipase 43 U/L (8-78); Magnesium 1.6 mg/dL (1.6-2.6); Phosphorus 2.8 mg/dL (2.3-4.7); Potassium 3.2 mmol/L (3.5-5.1); Protein, Total 6.1 g/dL (6.0-8.3); Sodium 136 mmol/L (136-145)
[2022-05-20] MEDS ORDERED: traZODone HCl 50 MG TAB PO PRN (07:34)
[2022-05-20] MEDS ORDERED: Dextrose 50% Abboject 50 ML SYRINGE SLOW IVP PRN (07:36)
[2022-05-20] MEDS ORDERED: Dextrose 5% in Water 1,000 ML IV PRN (07:36)
[2022-05-20] MEDS ORDERED: HumaLOG 300 UNITS/3 ML VIAL SC PRN (07:36)
[2022-05-20] MEDS ORDERED: hydrOXYzine Pamoate 25 mg Capsule PO PRN (07:52)
[2022-05-20] MEDS ORDERED: traMADol HCl 50 MG TAB PO SCH (09:30)
[2022-05-20] MEDS: Empagliflozin 25 MG TAB PO SCH (09:39)
[2022-05-20] MEDS: Multivit, Therapeutic 1 TAB PO SCH (09:39)
[2022-05-20] MEDS: risperiDONE 1 MG TAB PO SCH ×2 (09:39→21:09)
[2022-05-20] MEDS: Lisinopril 2.5 MG TAB PO SCH (09:39)
[2022-05-20] MEDS: Benztropine 1 MG TAB PO SCH (09:39)
[2022-05-20] MEDS: Folic Acid 1 MG TAB PO SCH (09:40)
[2022-05-20] MEDS: Metoprolol Tartrate 25 MG TAB PO SCH ×2 (09:40→21:09)
[2022-05-20] MEDS: Thiamine HCl 200 MG/2 ML VIAL SLOW IVP SCH (09:41)
[2022-05-20] MEDS: Sodium Chloride 0.9% 1,000 ML IV SCH ×2 (09:41→21:11)
[2022-05-20] MEDS: Pantoprazole 40 MG VIAL IVP SCH ×2 (09:42→21:08)
[2022-05-20] MEDS ORDERED: Lorazepam 1 MG TAB PO PRN (09:45)
[2022-05-20] MEDS ORDERED: Magnesium 2 GM/50 ML(in water) 2 GM in Premix Bag 1 BAG IVPB SCH (11:30)
[2022-05-20] MEDS ORDERED: Potassium Chloride 20 MEQ TAB PO SCH (11:30)
[2022-05-20] MEDS: Multivitamins, Adult 10 ML, Folic Acid 1 MG, Thiamine HCl 100 MG in Dextrose 5 %-0.45 %... IV SCH (11:50)
[2022-05-20] MEDS: HYDROcodone/Acetaminophen 5/325 mg Tablet PO PRN ×2 (17:47→23:50)
[2022-05-20] MEDS ORDERED: Atorvastatin Calcium 40 MG TAB PO SCH (21:00)
[2022-05-20] MEDS ORDERED: Bupropion 150 MG XL TAB PO SCH (21:00)
[2022-05-20] MEDS ORDERED: Melatonin 3 MG TAB PO PRN (21:35)
[2022-05-20] MEDS ORDERED: Gabapentin 300 MG CAP PO SCH (21:45)
[2022-05-21] MEDS: HYDROcodone/Acetaminophen 5/325 mg Tablet PO PRN (03:44)
[2022-05-21] MEDS: Sodium Chloride 0.9% 1,000 ML IV SCH ×2 (03:45→06:43)
[2022-05-21] MEDS: Lorazepam 1 MG TAB PO SCH ×2 (03:46→11:20)
[2022-05-21 05:23] LABS: #Eosinphils 0.1 thou/uL (0.0-0.7); #Monocytes 0.2 thou/uL (0.11-0.59); #Neutrophils 1.6 thou/uL (1.40-6.50); %Basophils 0.7 % (0.0-1.0); %Eosinophils 2.5 % (0.0-10.0); %Lymphocytes 33.5 % (21.0-51.0); %Monocytes 7.9 % (0.0-10.0); %Neutrophils 55.3 % (42.0-75.0); Hemoglobin 12.6 g/dL (14.0-18.0); Mean Corpuscular HGB CONC 33.5 g/dL (32.0-36.0); Mean Corpuscular Hemoglobin 33.3 pg (27.0-31.0); Mean Corpuscular Volume 99.3 fl (78.0-98.0); Mean Platelet Volume 8.1 fL (7.4-10.4); Platelet Count 48 10x3/uL (130-400); RBC Distribution Width 16.1 % (11.5-14.5); Red Blood Cell (RBC) Count 3.79 mill/uL (4.70-6.10)
[2022-05-21 05:30] LABS: Anion Gap 10 mmol/L (10-20); BUN (Urea Nitrogen) 10 mg/dL (8.9-20.6); Calc. Creatinine Clearance 169 mL/min (70-130); Calcium 8.2 mg/dL (7.8-10.44); Carbon Dioxide 27 mmol/L (22-29); Chloride 104 mmol/L (98-107); Estimated GFR 107; Glucose 174 mg/dL (70-105); Magnesium 1.8 mg/dL (1.6-2.6); Potassium 3.5 mmol/L (3.5-5.1); Sodium 137 mmol/L (136-145); Uric Acid 4.3 mg/dL (3.5-7.2)
[2022-05-21 05:42] LABS: Phosphorus 3.4 mg/dL (2.3-4.7)
[2022-05-21] MEDS ORDERED: Magnesium 2 GM/50 ML(in water) 2 GM in Premix Bag 1 BAG IVPB SCH (08:00)
[2022-05-21] MEDS ORDERED: Potassium Chloride 20 MEQ TAB PO SCH (08:00)
[2022-05-21] MEDS: Pantoprazole 40 MG VIAL IVP SCH (08:16)
[2022-05-21] MEDS: Thiamine HCl 200 MG/2 ML VIAL SLOW IVP SCH (08:16)
[2022-05-21] MEDS: Benztropine 1 MG TAB PO SCH (08:28)
[2022-05-21] MEDS: Lisinopril 2.5 MG TAB PO SCH (08:29)
[2022-05-21] MEDS: Empagliflozin 25 MG TAB PO SCH (08:29)
[2022-05-21] MEDS: Folic Acid 1 MG TAB PO SCH (08:29)
[2022-05-21] MEDS: Multivit, Therapeutic 1 TAB PO SCH (08:30)
[2022-05-21] MEDS: risperiDONE 1 MG TAB PO SCH (08:30)
[2022-05-21] MEDS: Metoprolol Tartrate 25 MG TAB PO SCH (08:30)
[2022-05-21] MEDS ORDERED: Lorazepam 1 MG TAB PO PRN (09:45)
[2022-05-21] MEDS ORDERED: Lorazepam 0.5 MG TAB PO SCH (09:45)
[2022-05-21] MEDS ORDERED: Iopamidol 370 76% 100 ML VIAL ONE (10:49)
[2022-05-21] MEDS: Multivitamins, Adult 10 ML, Folic Acid 1 MG, Thiamine HCl 100 MG in Dextrose 5 %-0.45 %... IV SCH (11:21)
[2022-05-21 12:03] VITALS: BP 146/61; TEMP 97.7
[2022-05-22] MEDS ORDERED: Thiamine 100 MG TAB PO SCH (09:00)
[2022-05-22] MEDS ORDERED: Lorazepam 0.5 MG TAB PO PRN (09:45)
== END 2022-05-21 15:35 | disposition home or self-care (01) | DRG 378 ==
LOC: ERS 07:16 → SUATTDRO 07:16 → IMCU/EMU 09:42 → 2SW 05-20 14:58
PROVIDERS: ADMIT Internal Medicine; ATTEND Internal Medicine
PROC: HZ2ZZZZ Detoxification Services for Substance Abuse Treatment (ICD-10-PCS; principal; 2022-05-19)
DX: K92.0 Hematemesis (principal); F10.239 Alcohol dependence with withdrawal, unspecified; Z20.822 Contact with and (suspected) exposure to COVID-19; R07.89 Other chest pain; K76.0 Fatty (change of) liver, not elsewhere classified; K70.30 Alcoholic cirrhosis of liver without ascites; F17.290 Nicotine dependence, other tobacco product, uncomplicated; F43.10 Post-traumatic stress disorder, unspecified; F25.9 Schizoaffective disorder, unspecified; E87.6 Hypokalemia; E83.42 Hypomagnesemia; F31.9 Bipolar disorder, unspecified; Y90.4 Blood alcohol level of 80-99 mg/100 ml; Z95.5 Presence of coronary angioplasty implant and graft; Z91.018 Allergy to other foods; Z79.899 Other long term (current) drug therapy; Z79.82 Long term (current) use of aspirin; Z79.02 Long term (current) use of antithrombotics/antiplatelets; Z90.49 Acquired absence of other specified parts of digestive tract
CPT/HCPCS: 36415; 36416; 71045; 71275; 74176; 80048; 80053; 80306; 80307; 81003; 81015; 82010; 83690; 83735; 84100; 84484; 84550; 85025; 85379; 85610; 85730; 87086; 93005; 96374; 96375; 96376; C9113; J1650; J1815; J1885; J2250; J2270; J2354; J2405; J2550; J3411; J3475; J3480; J7042; J7050; Q9967; U0003; U0005

== ENCOUNTER 2022-09-19 13:20 | Inpatient (IN) | payer OTHER ==
[2022-09-19] MEDS ORDERED: cefTRIAXone (ROCEPHIN) 2 GM VIAL ONE (14:54)
[2022-09-19] MEDS ORDERED: Octreotide Acetate 100 MCG/ML VIAL ONE (14:54)
[2022-09-19] MEDS ORDERED: Morphine 4 MG/ML VIAL ONE (14:54)
[2022-09-19 15:31] LABS: #Basophils 0.1 thou/uL (0.0-0.2); #Lymphocytes 1.2 thou/uL (1.20-3.40); #Monocytes 0.3 thou/uL (0.11-0.59); %Basophils 1.4 % (0.0-1.0); %Eosinophils 1.3 % (0.0-10.0); %Lymphocytes 32.8 % (21.0-51.0); %Monocytes 7.4 % (0.0-10.0); %Neutrophils 57.1 % (42.0-75.0); Hemoglobin 14.4 g/dL (14.0-18.0); Mean Corpuscular HGB CONC 35.1 g/dL (32.0-36.0); Mean Corpuscular Hemoglobin 33.8 pg (27.0-31.0); Mean Corpuscular Volume 96.3 fl (78.0-98.0); Mean Platelet Volume 7.2 fL (7.4-10.4); Platelet Count 63 10x3/uL (130-400); RBC Distribution Width 16.1 % (11.5-14.5); Red Blood Cell (RBC) Count 4.27 mill/uL (4.70-6.10); White Blood Cell (WBC) Count 3.6 10x3/uL (4.8-10.8)
[2022-09-19 15:39] LABS: INR-International Normal Ratio 1.1; PTT 26.6 sec (22.9-36.1); Prothrombin Time 14.6 sec (12.0-14.7)
[2022-09-19 15:42] LABS: ALT (SGPT) 23 U/L (8-55); AST (SGOT) 72 U/L (5-34); Albumin 4.1 g/dL (3.5-5.0); Alkaline Phosphatase 66 U/L (40-110); Anion Gap 14 mmol/L (10-20); BUN (Urea Nitrogen) 7 mg/dL (8.9-20.6); Bilirubin, Total 1.4 mg/dL (0.2-1.2); Calc. Creatinine Clearance 0 mL/min (70-130); Carbon Dioxide 25 mmol/L (22-29); Chloride 101 mmol/L (98-107); Estimated GFR 112; Glucose 107 mg/dL (70-105); Lipase 42 U/L (8-78); Protein, Total 7.1 g/dL (6.0-8.3); Sodium 137 mmol/L (136-145)
[2022-09-19] MEDS ORDERED: Pantoprazole 80 MG, Admixture Fee 1 EACH in Sodium Chloride 0.9% 100 ML IVPB SCH (15:45)
[2022-09-19] MEDS ORDERED: Octreotide Acetate 1,250 MCG in Sodium Chloride 0.9% 250 ML 250 ML IVPB SCH (16:00)
[2022-09-19] MEDS ORDERED: LORazepam 2 MG/ML SYR.(CARPUJECT) ONE (16:32)
[2022-09-19] MEDS ORDERED: Magnesium 2 GM/50 ML BAG (IN WATER) ONE (16:32)
[2022-09-19] MEDS ORDERED: Thiamine HCl 200 MG/2 ML VIAL SLOW IVP SCH ×2 (16:45→17:45)
[2022-09-19] MEDS ORDERED: Lorazepam 2 MG/ML VIAL IM PRN (17:41)
[2022-09-19] MEDS ORDERED: Ondansetron ODT 4 MG TAB PO PRN (17:41)
[2022-09-19] MEDS ORDERED: Lorazepam 1 MG TAB PO PRN (17:41)
[2022-09-19] MEDS ORDERED: Electrolyte Replacement Protocol 1 EACH FS PRN (17:45)
[2022-09-19] MEDS ORDERED: Nitroglycerin 0.4 MG TAB (25 Tab Bottle) SL PRN (17:49)
[2022-09-19] MEDS ORDERED: Thiamine 100 MG TAB PO SCH (18:30)
[2022-09-19 18:52] LABS: #Basophils 0.1 thou/uL (0.0-0.2); #Lymphocytes 1.1 thou/uL (1.20-3.40); #Monocytes 0.2 thou/uL (0.11-0.59); #Neutrophils 1.7 thou/uL (1.40-6.50); %Eosinophils 1.5 % (0.0-10.0); %Lymphocytes 34.8 % (21.0-51.0); %Monocytes 7.1 % (0.0-10.0); %Neutrophils 54.6 % (42.0-75.0); Hemoglobin 14.1 g/dL (14.0-18.0); Mean Corpuscular HGB CONC 34.6 g/dL (32.0-36.0); Mean Corpuscular Hemoglobin 33.1 pg (27.0-31.0); Mean Corpuscular Volume 95.9 fl (78.0-98.0); Platelet Count 61 10x3/uL (130-400); RBC Distribution Width 15.9 % (11.5-14.5); Red Blood Cell (RBC) Count 4.26 mill/uL (4.70-6.10); White Blood Cell (WBC) Count 3.2 10x3/uL (4.8-10.8)
[2022-09-19 19:12] LABS: Phosphorus 3.9 mg/dL (2.3-4.7)
[2022-09-19 19:22] LABS: Troponin I 0.014 ng/mL (< 0.028)
[2022-09-19] MEDS: Lorazepam 1 MG TAB PO SCH (20:13)
[2022-09-19 20:49] VITALS: BMI 32.1
[2022-09-19] MEDS ORDERED: Morphine 2 MG/ML VIAL SLOW IVP SCH (21:00)
[2022-09-19] MEDS ORDERED: Potassium Chloride 20 MEQ in Premix Bag 1 BAG IVPB SCH (21:00)
[2022-09-19] MEDS ORDERED: Folic Acid 1 MG TAB PO SCH (21:00)
[2022-09-19] MEDS ORDERED: Multivit, Therapeutic 1 TAB PO SCH (21:00)
[2022-09-19] MEDS: Atorvastatin Calcium 40 MG TAB PO SCH (21:12)
[2022-09-19] MEDS: Metoprolol Tartrate 25 MG TAB PO SCH (21:12)
[2022-09-19 21:38] LABS: Troponin I 0.012 ng/mL (< 0.028)
[2022-09-19] MEDS: Bupropion 150 MG XL TAB PO SCH (21:55)
[2022-09-19] MEDS: risperiDONE 1 MG TAB PO SCH (21:55)
[2022-09-20] MEDS: Lorazepam 1 MG TAB PO SCH ×5 (00:36→23:58)
[2022-09-20] MEDS ORDERED: traMADol HCl 50 MG TAB PO PRN (01:21)
[2022-09-20] MEDS ORDERED: HumaLOG 300 UNITS/3 ML VIAL SC PRN ×2 (01:22)
[2022-09-20] MEDS ORDERED: Dextrose 50% Abboject 50 ML SYRINGE SLOW IVP PRN (01:22)
[2022-09-20] MEDS ORDERED: Dextrose 5% in Water 1,000 ML IV PRN (01:22)
[2022-09-20] MEDS: HYDROcodone/Acetaminophen 5/325 mg Tablet PO PRN ×2 (02:12→20:55)
[2022-09-20 03:13] LABS: Amphetamine Not Detected (NotDetected); Barbiturates Screen Not Detected (NotDetected); Benzodiazepine Screen Detected (NotDetected); Cocaine Metabolite Screen Not Detected (NotDetected); Methadone Not Detected (NotDetected); Methamphetamine Not Detected (NotDetected); Opiate Screen Detected (NotDetected); Oxycodone Screen Not Detected (NotDetected); Phencyclidine (PCP) Not Detected (NotDetected); THC/Cannabinoid Screen Not Detected (NotDetected); Tricyclic Screen Not Detected (NotDetected)
[2022-09-20 05:10] LABS: ALT (SGPT) 23 U/L (8-55); AST (SGOT) 83 U/L (5-34); Albumin 4.1 g/dL (3.5-5.0); Alkaline Phosphatase 68 U/L (40-110); Anion Gap 10 mmol/L (10-20); BUN (Urea Nitrogen) 10 mg/dL (8.9-20.6); Bilirubin, Direct 0.7 mg/dL (0.1-0.3); Bilirubin, Total 1.5 mg/dL (0.2-1.2); Calc. Creatinine Clearance 169 mL/min (70-130); Calcium 9.2 mg/dL (7.8-10.44); Carbon Dioxide 31 mmol/L (22-29); Cardiac Risk 3.5 (Less than 4.5); Chloride 100 mmol/L (98-107); Cholesterol 198 mg/dl (< 200 Desired); Estimated GFR 107; Globulin 2.9 g/dL (2.4-3.5); Glucose 143 mg/dL (70-105); HDL Cholesterol 56 mg/dL (>60 Neg Risk); LDL Cholesterol, Calculated 128 mg/dL; Magnesium 1.9 mg/dL (1.6-2.6); Potassium 3.7 mmol/L (3.5-5.1); Sodium 137 mmol/L (136-145); Triglycerides 70 mg/dL (Less than 150)
[2022-09-20] MEDS: Multivit, Therapeutic 1 TAB PO SCH (07:44)
[2022-09-20] MEDS: Lisinopril 2.5 MG TAB PO SCH (07:45)
[2022-09-20] MEDS: Metoprolol Tartrate 25 MG TAB PO SCH ×2 (07:46→20:56)
[2022-09-20] MEDS: Folic Acid 1 MG TAB PO SCH (07:47)
[2022-09-20] MEDS: risperiDONE 1 MG TAB PO SCH ×2 (07:47→20:57)
[2022-09-20] MEDS ORDERED: Magnesium 2 GM/50 ML(in water) 2 GM in Premix Bag 1 BAG IVPB SCH (08:00)
[2022-09-20 08:04] LABS: Hemoglobin 14.3 g/dL (14.0-18.0); Mean Corpuscular HGB CONC 32.9 g/dL (32.0-36.0); Mean Corpuscular Hemoglobin 32.5 pg (27.0-31.0); Mean Corpuscular Volume 98.8 fl (78.0-98.0); Mean Platelet Volume 7.3 fL (7.4-10.4); Platelet Count 62 10x3/uL (130-400); Red Blood Cell (RBC) Count 4.41 mill/uL (4.70-6.10); White Blood Cell (WBC) Count 2.9 10x3/uL (4.8-10.8)
[2022-09-20] MEDS ORDERED: Folic Acid 1 MG TAB PO SCH (09:00)
[2022-09-20] MEDS ORDERED: Morphine 2 MG/ML VIAL SLOW IVP SCH (10:00)
[2022-09-20] MEDS ORDERED: Aspirin 81 mg Enteric Coated Tablet PO SCH (10:00)
[2022-09-20] MEDS ORDERED: Clopidogrel Bisulfate 75 MG TAB PO SCH (10:00)
[2022-09-20] MEDS: Empagliflozin 25 MG TAB PO SCH (10:33)
[2022-09-20] MEDS ORDERED: Lorazepam 1 MG TAB PO PRN (17:43)
[2022-09-20] MEDS ORDERED: Thiamine HCl 200 MG/2 ML VIAL SLOW IVP SCH (18:30)
[2022-09-20] MEDS: Atorvastatin Calcium 40 MG TAB PO SCH (20:56)
[2022-09-20] MEDS: Bupropion 150 MG XL TAB PO SCH (20:57)
[2022-09-20] MEDS: Pantoprazole 40 MG VIAL IVP SCH (20:57)
[2022-09-20] MEDS ORDERED: Melatonin 3 MG TAB PO PRN (23:54)
[2022-09-21] MEDS: Lorazepam 1 MG TAB PO SCH ×2 (06:20→12:29)
[2022-09-21] MEDS: HYDROcodone/Acetaminophen 5/325 mg Tablet PO PRN (06:21)
[2022-09-21] MEDS: Metoprolol Tartrate 25 MG TAB PO SCH (09:00)
[2022-09-21] MEDS: risperiDONE 1 MG TAB PO SCH (09:00)
[2022-09-21] MEDS ORDERED: Aspirin 81 mg Enteric Coated Tablet PO SCH (09:00)
[2022-09-21] MEDS ORDERED: Clopidogrel Bisulfate 75 MG TAB PO SCH (09:00)
[2022-09-21] MEDS: Pantoprazole 40 MG VIAL IVP SCH (09:00)
[2022-09-21] MEDS: Folic Acid 1 MG TAB PO SCH (12:28)
[2022-09-21] MEDS: Lisinopril 2.5 MG TAB PO SCH (12:28)
[2022-09-21] MEDS: Empagliflozin 25 MG TAB PO SCH (12:29)
[2022-09-21] MEDS: Multivit, Therapeutic 1 TAB PO SCH (12:29)
[2022-09-21 12:58] VITALS: BP 127/78; TEMP 98.7
[2022-09-21] MEDS ORDERED: Lorazepam 1 MG TAB PO PRN (17:43)
[2022-09-21] MEDS ORDERED: Lorazepam 0.5 MG TAB PO SCH (17:45)
[2022-09-22] MEDS ORDERED: Lorazepam 0.5 MG TAB PO PRN (17:43)
[2022-09-22] MEDS ORDERED: Thiamine 100 MG TAB PO SCH (17:45)
[2022-09-23] MEDS ORDERED: Thiamine 100 MG TAB PO SCH (18:30)
== END 2022-09-21 14:00 | disposition home or self-care (01) | DRG 313 ==
LOC: ERS 13:20 → 2SW 16:22 → OBSVTOIN 09-20 12:12
PROVIDERS: ADMIT Internal Medicine; ATTEND Internal Medicine
DX: R07.89 Other chest pain (principal); I25.119 Atherosclerotic heart disease of native coronary artery with unspecified angina pectoris; E87.6 Hypokalemia; K70.30 Alcoholic cirrhosis of liver without ascites; F10.20 Alcohol dependence, uncomplicated; D69.59 Other secondary thrombocytopenia; F12.10 Cannabis abuse, uncomplicated; E11.9 Type 2 diabetes mellitus without complications; Z71.51 Drug abuse counseling and surveillance of drug abuser; Z91.018 Allergy to other foods; Z95.5 Presence of coronary angioplasty implant and graft; Z79.899 Other long term (current) drug therapy; Z79.82 Long term (current) use of aspirin; I25.2 Old myocardial infarction; Z90.49 Acquired absence of other specified parts of digestive tract; Z79.02 Long term (current) use of antithrombotics/antiplatelets
CPT/HCPCS: 36415; 36416; 71045; 78452; 80053; 80061; 80306; 82248; 83690; 83735; 84100; 84484; 85025; 85027; 85610; 85730; 86850; 86900; 86901; 93005; 93010; 93017; 96376; A9502; C9113; G0378; J0153; J0696; J2060; J2270; J2272; J2354; J3411; J3475; J3480; J7030

== ENCOUNTER 2022-10-12 11:12 | Outpatient (CLI) | payer OTHER | END 2022-10-12 11:13 | disposition home or self-care (01) | LOC: RAD 11:12 | PROVIDERS: ATTEND Internal Medicine Critical Care Medicine | DX: R06.00 Dyspnea, unspecified (principal) | CPT/HCPCS: 71046 ==

== ENCOUNTER 2023-02-01 15:37 | Observation (INO) | payer OTHER ==
[2023-02-01] MEDS ORDERED: LORazepam 2 MG/ML SYR.(CARPUJECT) ONE (15:51)
[2023-02-01 16:15] LABS: #Basophils 0.1 thou/uL (0.0-0.2); #Eosinphils 0.1 thou/uL (0.0-0.7); #Monocytes 0.3 thou/uL (0.11-0.59); #Neutrophils 2.6 thou/uL (1.40-6.50); %Basophils 1.1 % (0.0-1.0); %Eosinophils 1.9 % (0.0-10.0); %Lymphocytes 36.9 % (21.0-51.0); %Monocytes 5.7 % (0.0-10.0); %Neutrophils 54.2 % (42.0-75.0); Hematocrit 39.9 % (42.0-52.0); Hemoglobin 13.7 g/dL (14.0-18.0); Mean Corpuscular HGB CONC 34.3 g/dL (32.0-36.0); Mean Corpuscular Hemoglobin 29.5 pg (27.0-31.0); Mean Platelet Volume 9.2 fL (7.4-10.4); RBC Distribution Width 13.7 % (11.5-14.5); Red Blood Cell (RBC) Count 4.64 mill/uL (4.70-6.10); White Blood Cell (WBC) Count 4.7 10x3/uL (4.8-10.8)
[2023-02-01 16:16] LABS: Platelet Count 103 10x3/uL (130-400)
[2023-02-01 16:32] LABS: ALT (SGPT) 13 U/L (8-55); AST (SGOT) 31 U/L (5-34); Acetaminophen Less than 10 mcg/mL (10.0-30.0); Albumin 4.1 g/dL (3.5-5.0); Alcohol 151.2 mg/dL (Less than 10); Alkaline Phosphatase 82 U/L (40-110); Anion Gap 17 mmol/L (10-20); BUN (Urea Nitrogen) 10 mg/dL (8.9-20.6); Bilirubin, Total 0.7 mg/dL (0.2-1.2); Calc. Creatinine Clearance 0 mL/min (70-130); Calcium 8.2 mg/dL (7.8-10.44); Carbon Dioxide 22 mmol/L (22-29); Chloride 103 mmol/L (98-107); Estimated GFR 107; Globulin 3.2 g/dL (2.4-3.5); Glucose 131 mg/dL (70-105); Lipase 45 U/L (8-78); Potassium 3.2 mmol/L (3.5-5.1); Protein, Total 7.3 g/dL (6.0-8.3); Salicylate Less than 8.0 mg/dL (15.0-30.0); Sodium 139 mmol/L (136-145)
[2023-02-01] MEDS ORDERED: Morphine 4 MG/ML VIAL ONE (16:45)
[2023-02-01 16:59] LABS: Amphetamine Not Detected (NotDetected); Barbiturates Screen Not Detected (NotDetected); Benzodiazepine Screen Not Detected (NotDetected); Cocaine Metabolite Screen Not Detected (NotDetected); Methadone Not Detected (NotDetected); Methamphetamine Not Detected (NotDetected); Opiate Screen Not Detected (NotDetected); Oxycodone Screen Not Detected (NotDetected); Phencyclidine (PCP) Not Detected (NotDetected); THC/Cannabinoid Screen Detected (NotDetected); Tricyclic Screen Not Detected (NotDetected)
[2023-02-01] MEDS ORDERED: Lorazepam 1 MG TAB PO PRN (18:06)
[2023-02-01] MEDS ORDERED: Ondansetron ODT 4 MG TAB PO PRN (18:06)
[2023-02-01] MEDS ORDERED: Lorazepam 2 MG/ML VIAL IM PRN (18:06)
[2023-02-01] MEDS ORDERED: Electrolyte Replacement Protocol 1 EACH FS SCH (18:15)
[2023-02-01] MEDS ORDERED: Dextrose 5% in Water 1,000 ML IV PRN (18:25)
[2023-02-01] MEDS ORDERED: Glucagon 1 MG/ML KIT IM PRN (18:25)
[2023-02-01] MEDS ORDERED: Dextrose 50% Abboject 50 ML SYRINGE SLOW IVP PRN (18:25)
[2023-02-01] MEDS ORDERED: HumaLOG 300 UNITS/3 ML VIAL SC PRN (18:25)
[2023-02-01 19:15] LABS: Magnesium 1.7 mg/dL (1.6-2.6)
[2023-02-01 20:03] LABS: Troponin I Less than 0.010 ng/mL (< 0.028)
[2023-02-01 21:41] VITALS: BMI 34.4
[2023-02-01] MEDS: Thiamine HCl 200 MG/2 ML VIAL SLOW IVP SCH (21:45)
[2023-02-01] MEDS: Lorazepam 1 MG TAB PO SCH (21:45)
[2023-02-01] MEDS ORDERED: Magnesium 2 GM/50 ML(in water) 2 GM in Premix Bag 1 BAG IVPB SCH (22:00)
[2023-02-02] MEDS: Lorazepam 1 MG TAB PO SCH ×5 (00:09→23:57)
[2023-02-02] MEDS: HYDROcodone/Acetaminophen 5/325 mg Tablet PO PRN ×4 (00:09→20:47)
[2023-02-02] MEDS: Potassium Chloride 20 MEQ in Premix Bag 1 BAG IVPB SCH ×2 (00:10→02:05)
[2023-02-02 02:14] LABS: Troponin I Less than 0.010 ng/mL (< 0.028)
[2023-02-02 05:27] LABS: #Monocytes 0.3 thou/uL (0.11-0.59); #Neutrophils 1.6 thou/uL (1.40-6.50); %Lymphocytes 37.3 % (21.0-51.0); %Monocytes 9.1 % (0.0-10.0); %Neutrophils 51.3 % (42.0-75.0); Hematocrit 39.8 % (42.0-52.0); Hemoglobin 13.4 g/dL (14.0-18.0); Mean Corpuscular HGB CONC 33.7 g/dL (32.0-36.0); Mean Corpuscular Hemoglobin 29.6 pg (27.0-31.0); Mean Corpuscular Volume 87.9 fl (78.0-98.0); Mean Platelet Volume 9.4 fL (7.4-10.4); RBC Distribution Width 13.6 % (11.5-14.5); Red Blood Cell (RBC) Count 4.53 mill/uL (4.70-6.10); White Blood Cell (WBC) Count 3.1 10x3/uL (4.8-10.8)
[2023-02-02 05:30] LABS: Platelet Count 69 10x3/uL (130-400)
[2023-02-02 06:02] LABS: ALT (SGPT) 14 U/L (8-55); AST (SGOT) 33 U/L (5-34); Alkaline Phosphatase 89 U/L (40-110); Anion Gap 12 mmol/L (10-20); BUN (Urea Nitrogen) 12 mg/dL (8.9-20.6); Calc. Creatinine Clearance 166 mL/min (70-130); Calcium 9.1 mg/dL (7.8-10.44); Carbon Dioxide 27 mmol/L (22-29); Chloride 100 mmol/L (98-107); Estimated GFR 105; Globulin 3.2 g/dL (2.4-3.5); Glucose 112 mg/dL (70-105); Potassium 3.7 mmol/L (3.5-5.1); Protein, Total 7.2 g/dL (6.0-8.3); Sodium 135 mmol/L (136-145)
[2023-02-02] MEDS ORDERED: Magnesium 2 GM/50 ML(in water) 2 GM in Premix Bag 1 BAG IVPB SCH (08:00)
[2023-02-02] MEDS: Multivit, Therapeutic 1 TAB PO SCH (09:16)
[2023-02-02] MEDS: Folic Acid 1 MG TAB PO SCH (09:16)
[2023-02-02] MEDS: Thiamine HCl 200 MG/2 ML VIAL SLOW IVP SCH (17:23)
[2023-02-02] MEDS ORDERED: Nitroglycerin 0.4 MG TAB (25 Tab Bottle) SL PRN (17:36)
[2023-02-02] MEDS ORDERED: hydrOXYzine 25 MG TAB PO PRN (17:41)
[2023-02-02] MEDS ORDERED: Lorazepam 1 MG TAB PO PRN (18:06)
[2023-02-02] MEDS: Gabapentin 300 MG CAP PO SCH (20:43)
[2023-02-02] MEDS: risperiDONE 1 MG TAB PO SCH (20:44)
[2023-02-02] MEDS: Metoprolol Tartrate 25 MG TAB PO SCH (20:44)
[2023-02-02] MEDS ORDERED: Atorvastatin Calcium 40 MG TAB PO SCH (21:00)
[2023-02-02] MEDS ORDERED: Bupropion 150 MG XL TAB PO SCH (21:00)
[2023-02-03] MEDS: Lorazepam 1 MG TAB PO SCH (05:11)
[2023-02-03 08:06] VITALS: BP 110/68; TEMP 97.5
[2023-02-03] MEDS: Gabapentin 300 MG CAP PO SCH (08:14)
[2023-02-03] MEDS: Folic Acid 1 MG TAB PO SCH (08:14)
[2023-02-03] MEDS: risperiDONE 1 MG TAB PO SCH (08:15)
[2023-02-03] MEDS: Metoprolol Tartrate 25 MG TAB PO SCH (08:15)
[2023-02-03] MEDS: Multivit, Therapeutic 1 TAB PO SCH (08:15)
[2023-02-03] MEDS ORDERED: Empagliflozin 25 MG TAB PO SCH (09:00)
[2023-02-03] MEDS ORDERED: Aspirin 81 mg Enteric Coated Tablet PO SCH (09:00)
[2023-02-03] MEDS ORDERED: Clopidogrel Bisulfate 75 MG TAB PO SCH (09:00)
[2023-02-03] MEDS ORDERED: Lisinopril 2.5 MG TAB PO SCH (09:00)
[2023-02-03] MEDS ORDERED: Lorazepam 1 MG TAB PO PRN (18:06)
[2023-02-03] MEDS ORDERED: Lorazepam 0.5 MG TAB PO SCH (18:15)
[2023-02-04] MEDS ORDERED: Thiamine 100 MG TAB PO SCH (09:00)
[2023-02-04] MEDS ORDERED: Lorazepam 0.5 MG TAB PO PRN (18:06)
== END 2023-02-03 10:38 | disposition home or self-care (01) ==
LOC: ERS 15:37 → ERHOLD 17:07 → 2SW 21:27
PROVIDERS: ADMIT Internal Medicine; ATTEND Family Medicine
DX: R07.9 Chest pain, unspecified (principal); I25.10 Atherosclerotic heart disease of native coronary artery without angina pectoris; F10.10 Alcohol abuse, uncomplicated; I10 Essential (primary) hypertension; F12.10 Cannabis abuse, uncomplicated; F43.10 Post-traumatic stress disorder, unspecified; F41.9 Anxiety disorder, unspecified; K70.30 Alcoholic cirrhosis of liver without ascites; F31.9 Bipolar disorder, unspecified; F25.9 Schizoaffective disorder, unspecified; Z79.82 Long term (current) use of aspirin; Z79.84 Long term (current) use of oral hypoglycemic drugs; Z79.02 Long term (current) use of antithrombotics/antiplatelets; Z79.899 Other long term (current) drug therapy; Z90.49 Acquired absence of other specified parts of digestive tract
CPT/HCPCS: 36415; 36416; 71045; 80053; 80306; 80307; 83690; 83735; 83880; 84484; 85025; 93005; 96374; 96375; 96376; G0378; J2060; J2270; J3411; J3475; J3480; Q0162

== ENCOUNTER 2023-06-10 07:42 | Inpatient (IN) | payer OTHER ==
[2023-06-10 08:22] LABS: #Basophils 0.1 thou/uL (0.0-0.2); #Eosinphils 0.1 thou/uL (0.0-0.7); #Monocytes 0.2 thou/uL (0.11-0.59); #Neutrophils 2.6 thou/uL (1.40-6.50); %Basophils 1.1 % (0.0-1.0); %Eosinophils 1.8 % (0.0-10.0); %Lymphocytes 44.6 % (21.0-51.0); %Monocytes 4.4 % (0.0-10.0); %Neutrophils 47.9 % (42.0-75.0); Hematocrit 43.1 % (42.0-52.0); Hemoglobin 15.3 g/dL (14.0-18.0); Mean Corpuscular HGB CONC 35.5 g/dL (32.0-36.0); Mean Corpuscular Hemoglobin 31.6 pg (27.0-31.0); Mean Platelet Volume 9.4 fL (7.4-10.4); Platelet Count 143 10x3/uL (130-400); RBC Distribution Width 13.9 % (11.5-14.5); Red Blood Cell (RBC) Count 4.84 mill/uL (4.70-6.10); White Blood Cell (WBC) Count 5.4 10x3/uL (4.8-10.8)
[2023-06-10 08:31] LABS: ALT (SGPT) 18 U/L (8-55); AST (SGOT) 36 U/L (5-34); Albumin 4.3 g/dL (3.5-5.0); Alcohol 186.1 mg/dL (Less than 10); Alkaline Phosphatase 103 U/L (40-110); Anion Gap 15 mmol/L (10-20); BUN (Urea Nitrogen) 9 mg/dL (8.9-20.6); Bilirubin, Total 0.9 mg/dL (0.2-1.2); Calc. Creatinine Clearance 0 mL/min (70-130); Calcium 8.8 mg/dL (7.8-10.44); Carbon Dioxide 24 mmol/L (22-29); Chloride 100 mmol/L (98-107); Estimated GFR 99; Globulin 3.2 g/dL (2.4-3.5); Glucose 153 mg/dL (70-105); Lipase 34 U/L (8-78); Potassium 3.3 mmol/L (3.5-5.1); Protein, Total 7.5 g/dL (6.0-8.3); Sodium 136 mmol/L (136-145)
[2023-06-10 08:33] LABS: Troponin I 0.029 ng/mL (< 0.028)
[2023-06-10 08:46] LABS: Bacteria/HPF None Seen HPF (None Seen); Bilirubin Negative (Negative); Blood, Urine Negative (Negative); CAUTI Indications for Culture Dysuria,urgency,freq; Clarity Clear (Clear); Glucose, Urine (Dipstick) 70 mg/dL (Negative); Ketone, Urine Negative (Negative); Leukocyte Negative Leu/uL (Negative); Nitrite Negative (Negative); Protein, Urine (Dipstick) 30 mg/dL (Neg-Trace); RBC/HPF 0-3 HPF (0-3); Specific Gravity, Urine 1.028 (1.002-1.036); Urobilinogen 3 mg/dL (Less than 2); WBC/HPF 0-3 HPF (0-3); pH, Urine 6.5 (5.0-9.0)
[2023-06-10 08:49] LABS: Urine Culture Reflex No No
[2023-06-10] MEDS ORDERED: LORazepam 2 MG/ML SYR.(CARPUJECT) ONE ×2 (09:53→11:40)
[2023-06-10] MEDS ORDERED: chlordiazePOXIDE HCl 25 MG CAP ONE (10:02)
[2023-06-10 11:03] LABS: Troponin I Less than 0.010 ng/mL (< 0.028)
[2023-06-10 11:53] LABS: Troponin I Less than 0.010 ng/mL (< 0.028)
[2023-06-10] MEDS ORDERED: Lorazepam 2 MG/ML VIAL IM PRN (12:40)
[2023-06-10] MEDS ORDERED: Labetalol HCl 100 MG/20 ML VIAL SLOW IVP PRN (12:40)
[2023-06-10] MEDS ORDERED: Ondansetron ODT 4 MG TAB PO PRN ×2 (12:40)
[2023-06-10] MEDS ORDERED: Electrolyte Replacement Protocol 1 EACH FS SCH (12:45)
[2023-06-10] MEDS ORDERED: Dextrose 5% in Water 1,000 ML IV PRN (12:47)
[2023-06-10] MEDS ORDERED: HumaLOG 300 UNITS/3 ML VIAL SC PRN ×2 (12:47)
[2023-06-10] MEDS ORDERED: Dextrose 50% Abboject 50 ML SYRINGE SLOW IVP PRN (12:47)
[2023-06-10] MEDS ORDERED: Glucagon 1 MG/ML KIT IM PRN (12:47)
[2023-06-10] MEDS ORDERED: Folic Acid 1 MG TAB PO SCH (13:15)
[2023-06-10] MEDS ORDERED: Multivit, Therapeutic 1 TAB PO SCH (13:15)
[2023-06-10 13:36] LABS: #Basophils 0.1 thou/uL (0.0-0.2); #Eosinphils 0.1 thou/uL (0.0-0.7); #Monocytes 0.3 thou/uL (0.11-0.59); #Neutrophils 3.2 thou/uL (1.40-6.50); %Basophils 1.1 % (0.0-1.0); %Eosinophils 1.6 % (0.0-10.0); %Lymphocytes 34.8 % (21.0-51.0); %Monocytes 5.3 % (0.0-10.0); Hematocrit 42.5 % (42.0-52.0); Hemoglobin 14.7 g/dL (14.0-18.0); Mean Corpuscular HGB CONC 34.6 g/dL (32.0-36.0); Mean Corpuscular Hemoglobin 31.3 pg (27.0-31.0); Mean Corpuscular Volume 90.4 fl (78.0-98.0); Mean Platelet Volume 9.6 fL (7.4-10.4); Platelet Count 121 10x3/uL (130-400); RBC Distribution Width 13.9 % (11.5-14.5); White Blood Cell (WBC) Count 5.5 10x3/uL (4.8-10.8)
[2023-06-10 13:57] LABS: ALT (SGPT) 20 U/L (8-55); AST (SGOT) 43 U/L (5-34); Albumin 4.1 g/dL (3.5-5.0); Alkaline Phosphatase 106 U/L (40-110); Anion Gap 17 mmol/L (10-20); BUN (Urea Nitrogen) 10 mg/dL (8.9-20.6); Bilirubin, Direct 0.3 mg/dL (0.1-0.3); Bilirubin, Total 0.7 mg/dL (0.2-1.2); Calc. Creatinine Clearance 0 mL/min (70-130); Carbon Dioxide 25 mmol/L (22-29); Chloride 101 mmol/L (98-107); Estimated GFR 93; Globulin 3.2 g/dL (2.4-3.5); Glucose 162 mg/dL (70-105); Magnesium 1.7 mg/dL (1.6-2.6); Potassium 3.5 mmol/L (3.5-5.1); Protein, Total 7.3 g/dL (6.0-8.3); Sodium 139 mmol/L (136-145)
[2023-06-10] MEDS: Lorazepam 1 MG TAB PO SCH ×2 (15:27→17:53)
[2023-06-10] MEDS: Sodium Chloride 0.9% 1,000 ML IV SCH (15:35)
[2023-06-10] MEDS: Thiamine HCl 200 MG/2 ML VIAL SLOW IVP SCH (15:51)
[2023-06-10 18:11] VITALS: BMI 34.4
[2023-06-10 19:18] LABS: Amphetamine Not Detected (NotDetected); Barbiturates Screen Not Detected (NotDetected); Benzodiazepine Screen Detected (NotDetected); Cocaine Metabolite Screen Not Detected (NotDetected); Methadone Not Detected (NotDetected); Methamphetamine Not Detected (NotDetected); Opiate Screen Not Detected (NotDetected); Oxycodone Screen Not Detected (NotDetected); Phencyclidine (PCP) Not Detected (NotDetected); THC/Cannabinoid Screen Not Detected (NotDetected); Tricyclic Screen Not Detected (NotDetected)
[2023-06-10] MEDS: Famotidine 20 MG TAB PO SCH (20:14)
[2023-06-10] MEDS: Ondansetron PF 4 MG/2 ML Vial IVP PRN (20:14)
[2023-06-10] MEDS: traMADol HCl 50 MG TAB PO PRN (20:14)
[2023-06-10] MEDS: Lorazepam 1 MG TAB PO PRN (20:26)
[2023-06-10] MEDS ORDERED: Potassium Chloride 20 MEQ TAB PO SCH (22:00)
[2023-06-10] MEDS ORDERED: Magnesium 2 GM/50 ML(in water) 2 GM in Premix 1 BAG IVPB SCH (22:00)
[2023-06-11] MEDS: Lorazepam 1 MG TAB PO SCH ×4 (01:57→18:41)
[2023-06-11] MEDS: Sodium Chloride 0.9% 1,000 ML IV SCH ×2 (04:11→15:22)
[2023-06-11 04:23] LABS: #Monocytes 0.3 thou/uL (0.11-0.59); %Basophils 0.8 % (0.0-1.0); %Eosinophils 1.1 % (0.0-10.0); %Lymphocytes 35.3 % (21.0-51.0); %Monocytes 7.2 % (0.0-10.0); %Neutrophils 55.3 % (42.0-75.0); Hemoglobin 13.1 g/dL (14.0-18.0); Mean Corpuscular HGB CONC 34.5 g/dL (32.0-36.0); Mean Corpuscular Hemoglobin 31.2 pg (27.0-31.0); Mean Corpuscular Volume 90.5 fl (78.0-98.0); Mean Platelet Volume 9.6 fL (7.4-10.4); RBC Distribution Width 13.7 % (11.5-14.5); White Blood Cell (WBC) Count 3.6 10x3/uL (4.8-10.8)
[2023-06-11 04:50] LABS: Anion Gap 13 mmol/L (10-20); BUN (Urea Nitrogen) 11 mg/dL (8.9-20.6); Calc. Creatinine Clearance 162 mL/min (70-130); Calcium 8.6 mg/dL (7.8-10.44); Carbon Dioxide 28 mmol/L (22-29); Chloride 101 mmol/L (98-107); Estimated GFR 99; Glucose 152 mg/dL (70-105); Potassium 3.5 mmol/L (3.5-5.1); Sodium 138 mmol/L (136-145)
[2023-06-11 05:04] LABS: Platelet Count 88 10x3/uL (130-400)
[2023-06-11] MEDS ORDERED: Potassium Chloride 20 MEQ TAB PO SCH (08:00)
[2023-06-11] MEDS: Ondansetron PF 4 MG/2 ML Vial IVP PRN (08:57)
[2023-06-11] MEDS: Multivit, Therapeutic 1 TAB PO SCH (08:58)
[2023-06-11] MEDS: Lorazepam 1 MG TAB PO PRN (09:02)
[2023-06-11] MEDS: Folic Acid 1 MG TAB PO SCH (09:03)
[2023-06-11] MEDS: Famotidine 20 MG TAB PO SCH ×2 (09:03→20:13)
[2023-06-11 12:09] LABS: Syphilis Antibody Nonreactive (Nonreactive); Syphilis Antibody Index 0.09 S/CO (<1.00 Non-Reactive)
[2023-06-11] MEDS ORDERED: Lorazepam 1 MG TAB PO PRN (12:40)
[2023-06-11] MEDS: Thiamine HCl 200 MG/2 ML VIAL SLOW IVP SCH (13:13)
[2023-06-11] MEDS ORDERED: Clopidogrel Bisulfate 75 MG TAB PO SCH (13:54)
[2023-06-11] MEDS ORDERED: hydrOXYzine 25 MG TAB PO PRN (14:03)
[2023-06-11] MEDS: Rifaximin 200 MG TAB PO SCH (20:13)
[2023-06-11] MEDS: Ranolazine 500 MG ER.TAB PO SCH (20:13)
[2023-06-11] MEDS: Gabapentin 300 MG CAP PO SCH (20:13)
[2023-06-11] MEDS: risperiDONE 1 MG TAB PO SCH (20:13)
[2023-06-11] MEDS ORDERED: BuPROPion XL 150 MG ER.TAB PO SCH (21:00)
[2023-06-11] MEDS ORDERED: Atorvastatin Calcium 40 MG TAB PO SCH (21:00)
[2023-06-12] MEDS: Ondansetron PF 4 MG/2 ML Vial IVP PRN (00:08)
[2023-06-12] MEDS: Lorazepam 1 MG TAB PO SCH ×2 (00:09→06:41)
[2023-06-12] MEDS: traMADol HCl 50 MG TAB PO PRN (03:09)
[2023-06-12] MEDS: Sodium Chloride 0.9% 1,000 ML IV SCH (06:39)
[2023-06-12 08:09] VITALS: BP 131/90; TEMP 99.1
[2023-06-12] MEDS ORDERED: Clopidogrel Bisulfate 75 MG TAB PO SCH (09:00)
[2023-06-12] MEDS ORDERED: Aspirin 81 mg Enteric Coated Tablet PO SCH (09:00)
[2023-06-12] MEDS ORDERED: Empagliflozin 25 MG TAB PO SCH (09:00)
[2023-06-12] MEDS ORDERED: busPIRone HCl 5 MG TAB PO SCH (09:00)
[2023-06-12] MEDS ORDERED: Folic Acid 1 MG TAB PO SCH (09:00)
[2023-06-12] MEDS: Folic Acid 1 MG TAB PO SCH (10:24)
[2023-06-12] MEDS: Multivit, Therapeutic 1 TAB PO SCH (10:24)
[2023-06-12] MEDS: Famotidine 20 MG TAB PO SCH (10:24)
[2023-06-12] MEDS: Gabapentin 300 MG CAP PO SCH (10:24)
[2023-06-12] MEDS: Ranolazine 500 MG ER.TAB PO SCH (10:24)
[2023-06-12] MEDS: Rifaximin 200 MG TAB PO SCH (10:25)
[2023-06-12] MEDS: risperiDONE 1 MG TAB PO SCH (10:25)
[2023-06-12] MEDS ORDERED: Lorazepam 1 MG TAB PO PRN (12:40)
[2023-06-12] MEDS ORDERED: Lorazepam 0.5 MG TAB PO SCH (12:45)
[2023-06-13] MEDS ORDERED: Thiamine 100 MG TAB PO SCH (09:00)
[2023-06-13] MEDS ORDERED: Lorazepam 0.5 MG TAB PO PRN (12:40)
== END 2023-06-12 10:00 | disposition home or self-care (01) | DRG 897 ==
LOC: ERS 07:42 → 2SE 14:52
PROVIDERS: ADMIT Internal Medicine; ATTEND Internal Medicine
DX: F10.139 Alcohol abuse with withdrawal, unspecified (principal); K70.30 Alcoholic cirrhosis of liver without ascites; I25.10 Atherosclerotic heart disease of native coronary artery without angina pectoris; E11.9 Type 2 diabetes mellitus without complications; I10 Essential (primary) hypertension; F25.9 Schizoaffective disorder, unspecified; Y90.6 Blood alcohol level of 120-199 mg/100 ml; Z91.018 Allergy to other foods; Z79.899 Other long term (current) drug therapy; Z79.82 Long term (current) use of aspirin
CPT/HCPCS: 36415; 36416; 70450; 71045; 80048; 80053; 80306; 80307; 81001; 82140; 82248; 83690; 83735; 84100; 84484; 85025; 86780; 93005; 94760; 96374; 96376; J2060; J2405; J3411; J3475; J7050

== ENCOUNTER 2024-04-17 11:39 | Observation (INO) | payer OTHER ==
[2024-04-17 13:00] LABS: #Basophils 0.09 10x3/uL (0.0-0.2); %Basophils 1.1 % (0.0-1.0); %Eosinophils 1.4 % (0.0-10.0); %Lymphocytes 22.4 % (21.0-51.0); %Monocytes 6.5 % (0.0-10.0); %Neutrophils 68.2 % (42.0-75.0); Hematocrit 38.2 % (42.0-52.0); Hemoglobin 13.1 g/dL (14.0-18.0); Mean Corpuscular HGB CONC 34.3 g/dL (32.0-36.0); Mean Corpuscular Hemoglobin 29.7 pg (27.0-31.0); Mean Corpuscular Volume 86.6 fL (78.0-98.0); Mean Platelet Volume 9.6 fL (7.4-10.4); Platelet Count 186 10x3/uL (130-400); RBC Distribution Width 13.2 % (11.5-14.5); Red Blood Cell (RBC) Count 4.41 mill/uL (4.70-6.10)
[2024-04-17 13:33] LABS: ALT (SGPT) 13 U/L (8-55); AST (SGOT) 16 U/L (5-34); Albumin 3.7 g/dL (3.5-5.0); Alkaline Phosphatase 75 U/L (40-110); Anion Gap 12 mmol/L (10-20); BUN (Urea Nitrogen) 17 mg/dL (8.4-25.7); Bilirubin, Total 0.8 mg/dL (0.2-1.2); Calc. Creatinine Clearance 0 mL/min (70-130); Calcium 8.7 mg/dL (7.8-10.44); Carbon Dioxide 25 mmol/L (22-29); Chloride 105 mmol/L (98-107); Estimated GFR 89; Glucose 111 mg/dL (70-105); Potassium 3.6 mmol/L (3.5-5.1); Protein, Total 6.7 g/dL (6.0-8.3); Sodium 138 mmol/L (136-145)
[2024-04-17 13:36] LABS: Troponin I 0.011 ng/mL (< 0.028)
[2024-04-17] MEDS ORDERED: Acetaminophen 325 MG TAB PO PRN (14:40)
[2024-04-17 15:24] VITALS: BMI 35.2
[2024-04-17] MEDS ORDERED: Glucagon 1 MG/ML KIT IM PRN (15:37)
[2024-04-17] MEDS ORDERED: Insulin Lispro 100 UNIT/ML 10 ML VIAL SC PRN (15:37)
[2024-04-17] MEDS ORDERED: Lactulose 20 GM (30 mL) UDCUP ONE ×2 (15:37→22:04)
[2024-04-17] MEDS ORDERED: Enoxaparin 60 MG (0.6 mL) SYRINGE ONE (15:37)
[2024-04-17] MEDS ORDERED: Dextrose 50% Abboject 50 ML SYRINGE SLOW IVP PRN (15:37)
[2024-04-17] MEDS ORDERED: Dextrose 5% in Water 1,000 ML IV PRN (15:37)
[2024-04-17] MEDS: Enoxaparin 120 MG/0.8 ML SYRINGE SC SCH (15:44)
[2024-04-17] MEDS: Lactulose 20 GM (30 mL) UDCUP PO SCH (15:45)
[2024-04-17 16:12] LABS: Troponin I 0.017 ng/mL (< 0.028)
[2024-04-17] MEDS ORDERED: fentaNYL 50 mcg/mL 1 mL Vial ONE (16:26)
[2024-04-17] MEDS: fentaNYL 50 mcg/mL 1 mL Vial SLOW IVP SCH (16:32)
[2024-04-17 19:59] LABS: Troponin I Less than 0.010 ng/mL (< 0.028)
[2024-04-17] MEDS ORDERED: Atorvastatin Calcium 40 MG TAB ONE (22:04)
[2024-04-17] MEDS ORDERED: Nitroglycerin 2% Ointment 1 INCH/1 GM Packet ONE (22:04)
[2024-04-17] MEDS ORDERED: Metoprolol Tartrate 25 MG TAB ONE (22:04)
[2024-04-17] MEDS: Metoprolol Tartrate 25 MG TAB PO SCH (22:15)
[2024-04-17] MEDS: Atorvastatin Calcium 40 MG TAB PO SCH (22:15)
[2024-04-17] MEDS: Rifaximin 550 MG TAB PO SCH (22:15)
[2024-04-17] MEDS: Nitroglycerin 2% Ointment 1 INCH/1 GM Packet TOP SCH (22:15)
[2024-04-18] MEDS: Nitroglycerin 0.4 MG TAB (25 Tab Bottle) SL PRN (03:00)
[2024-04-18] MEDS ORDERED: Nitroglycerin 0.4 MG TAB 1 EACH ONE ×2 (03:55→04:15)
[2024-04-18] MEDS ORDERED: Communication Order-Pharmacy FS SCH (05:45)
[2024-04-18] MEDS: Sodium Chloride 0.9% 1,000 ML IV SCH (06:15)
[2024-04-18 08:35] VITALS: BP 111/67; TEMP 98.1
[2024-04-18] MEDS ORDERED: Nitroglycerin 50 MG/250 ML BOT 250 ML ONE (08:43)
[2024-04-18] MEDS ORDERED: Heparin 10,000 UNITS/ 10 ML VIAL ONE (08:43)
[2024-04-18] MEDS ORDERED: Aspirin 81 mg Enteric Coated Tablet PO SCH ×2 (09:00)
[2024-04-18] MEDS ORDERED: Clopidogrel Bisulfate 75 MG TAB PO SCH (09:00)
[2024-04-18] MEDS ORDERED: Ranolazine ER 500 MG TAB PO SCH (09:00)
[2024-04-18] MEDS ORDERED: Empagliflozin 25 MG TAB PO SCH (09:00)
[2024-04-18] MEDS ORDERED: Enoxaparin 40 MG (0.4 mL) SYRINGE SC SCH (09:00)
[2024-04-18] MEDS ORDERED: Lisinopril 2.5 MG TAB PO SCH (09:00)
[2024-04-18] MEDS ORDERED: Pantoprazole DR 40 MG TAB PO SCH (09:00)
[2024-04-18] MEDS ORDERED: fentaNYL 50 mcg/mL 1 mL Vial ONE (09:18)
[2024-04-18] MEDS ORDERED: Midazolam HCl 2 mg/2 ml Vial ONE (09:19)
[2024-04-18] MEDS ORDERED: Verapamil 5 MG/2 ML VIAL ONE (09:23)
[2024-04-18] MEDS ORDERED: Sodium Chloride 0.9% 200 ML IV PRN (10:20)
[2024-04-18] MEDS ORDERED: Acetaminophen/Codeine 30-300mg Tablet PO PRN ×2 (10:20)
[2024-04-18] MEDS ORDERED: Nitroglycerin 0.4 MG TAB (25 Tab Bottle) SL PRN (10:20)
[2024-04-18] MEDS ORDERED: Iopamidol 370 76% 100 ML VIAL ONE (11:04)
== END 2024-04-18 13:40 | disposition home or self-care (01) ==
LOC: ERS 11:39 → ERHOLD 14:43 → SURG A 04-18 09:00
PROVIDERS: ADMIT Internal Medicine; ATTEND Internal Medicine
PROC: 4A023N7 Measurement of Cardiac Sampling and Pressure, Left Heart, Percutaneous Approach (ICD-10-PCS; principal; 2024-04-17)
DX: R07.1 Chest pain on breathing (principal); I25.110 Atherosclerotic heart disease of native coronary artery with unstable angina pectoris; F41.9 Anxiety disorder, unspecified; I10 Essential (primary) hypertension; K70.30 Alcoholic cirrhosis of liver without ascites; I85.00 Esophageal varices without bleeding; E66.9 Obesity, unspecified; E11.9 Type 2 diabetes mellitus without complications; Z87.891 Personal history of nicotine dependence; Z95.820 Peripheral vascular angioplasty status with implants and grafts; Z79.4 Long term (current) use of insulin; Z79.82 Long term (current) use of aspirin; Z79.899 Other long term (current) drug therapy; Z95.5 Presence of coronary angioplasty implant and graft; Z90.89 Acquired absence of other organs; F10.11 Alcohol abuse, in remission; Z79.85 Long-term (current) use of injectable non-insulin antidiabetic drugs; Z91.018 Allergy to other foods; Z90.49 Acquired absence of other specified parts of digestive tract; Z98.890 Other specified postprocedural states
CPT/HCPCS: 36415; 36416; 71045; 80053; 83880; 84484; 85025; 93005; 93458; 99152; 99153; C1769; C1894; J1644; J1650; J2250; J3010; J7030; Q9967

== ENCOUNTER 2025-02-25 18:57 | Emergency (ER) | payer OTHER ==
[2025-02-25] MEDS ORDERED: Ketorolac Tromethamine 30 MG (1 mL) VIAL ONE (21:03)
[2025-02-25] MEDS ORDERED: predniSONE 20 MG TAB ONE (21:35)
== END 2025-02-25 21:34 | disposition home or self-care (01) ==
LOC: ERS 18:57
DX: B02.9 Zoster without complications (principal); I10 Essential (primary) hypertension; E11.9 Type 2 diabetes mellitus without complications; I25.2 Old myocardial infarction; I85.00 Esophageal varices without bleeding; K74.60 Unspecified cirrhosis of liver; E78.5 Hyperlipidemia, unspecified; F41.9 Anxiety disorder, unspecified; F31.9 Bipolar disorder, unspecified; F20.9 Schizophrenia, unspecified; F43.10 Post-traumatic stress disorder, unspecified; F17.220 Nicotine dependence, chewing tobacco, uncomplicated; Z79.899 Other long term (current) drug therapy; Z79.84 Long term (current) use of oral hypoglycemic drugs; Z79.82 Long term (current) use of aspirin; Z79.85 Long-term (current) use of injectable non-insulin antidiabetic drugs
CPT/HCPCS: 36416; 96372; 99283; J1885; J2270; J7512

== ENCOUNTER 2025-02-28 21:14 | Emergency (ER) | payer OTHER ==
[2025-02-28] MEDS ORDERED: Proparacaine 0.5% Opth 15 ML BOT ONE (23:19)
[2025-02-28] MEDS ORDERED: HYDROcodone/Acetaminophen 5/325 mg Tablet ONE (23:32)
== END 2025-03-01 00:17 | disposition home or self-care (01) ==
LOC: ERS 21:14
DX: B02.30 Zoster ocular disease, unspecified (principal); I25.2 Old myocardial infarction; E11.9 Type 2 diabetes mellitus without complications; I10 Essential (primary) hypertension; F17.220 Nicotine dependence, chewing tobacco, uncomplicated
CPT/HCPCS: 99283

== ENCOUNTER 2025-05-05 07:32 | Outpatient (CLI) | payer OTHER | END 2025-05-05 07:33 | disposition home or self-care (01) | LOC: ULT 07:32 | PROVIDERS: ATTEND Internal Medicine Gastroenterology | DX: R16.1 Splenomegaly, not elsewhere classified (principal); I15.9 Secondary hypertension, unspecified; E11.69 Type 2 diabetes mellitus with other specified complication; I85.00 Esophageal varices without bleeding; I25.10 Atherosclerotic heart disease of native coronary artery without angina pectoris; F10.11 Alcohol abuse, in remission; K74.69 Other cirrhosis of liver; K76.82 Hepatic encephalopathy; K75.89 Other specified inflammatory liver diseases; E78.5 Hyperlipidemia, unspecified; Z95.5 Presence of coronary angioplasty implant and graft; Z86.79 Personal history of other diseases of the circulatory system | CPT/HCPCS: 76700 ==